=== PATIENT | female | born 1935 | race Caucasian/White ===

== ENCOUNTER 2023-09-28 18:38 | Inpatient (IN) | payer OTHER, SELFPAY ==
[2023-09-28] VITALS (8 sets, daily range): BP systolic 103–137; BP diastolic 63–77; BMI 31.5; BMI 30.8
[2023-09-28 16:40] LABS: % Basophils 0.9 % (0-2); % Immature Granulocytes 0.6 % (0-0.5); % Lymphocytes 9.9 % (20.5-51.1); % Monocytes 2.9 % (1.7-9.3); % Neutrophils 85.7 % (42.2-75.2); Absolute Basophils 0.1 10^3/uL (0-0.2); Absolute Lymphocytes 0.7 10^3/uL (1.2-3.4); Absolute Monocytes 0.2 10^3/uL (0.1-0.6); Absolute Neutrophils 5.7 10^3/uL (1.4-6.5); Hematocrit 28.8 % (37.0-47.0); Hemoglobin 10.2 g/dL (12.0-16.0); Mean Corp Hgb Conc. 35.4 g/dL (33.0-37.0); Mean Corpuscular Hgb 29.6 pg (27.0-31.0); Mean Corpuscular Volume 83.5 fL (81.0-99.0); Mean Platelet Volume 10.6 fL (7.4-10.4); Nucleated Red Blood Cells % 0 %; Platelet Count 133 10^3/uL (130-400); Red Blood Cell Count 3.45 10^6/uL (4.20-5.40); Red Cell Dist. Width 14.6 % (11.5-14.5); White Blood Cell Count 6.7 10^3/uL (4.8-10.8)
[2023-09-28 16:57] LABS: ALT (SGPT) 44 U/L (0-35); AST (SGOT) 34 U/L (14-36); Albumin 1.3 g/dl (3.5-5.0); Alkaline Phosphatase 21 U/L (38-126); Blood Urea Nitrogen 15 mg/dl (7-17); Calcium 4.4 mg/dl (8.4-10.2); Carbon Dioxide 8 mmol/L (22-30); Chloride 124 mmol/L (98-107); Estimated Creatinine Clearance 52 ml/min; Glucose 95 mg/dl (70-99); Potassium 2.4 mmol/L (3.5-5.1); Sodium 136 mmol/L (135-145); Total Bilirubin 0.4 mg/dl (0.2-1.3); eGFR > 60.00
--- NOTE | 2023-09-28 17:08 | ED.GENMED ---
History of Present Illness
General
Chief Complaint: Bowel Problem
Source: patient and family
Exam Limitations: none
Time Seen by Provider: 09/28/23 16:14
History of Present Illness
History of Present Illness:
88-year-old female who presents with persistent diarrhea. Patient is been on immunotherapy and symptoms have persisted. He the immunotherapy is for melanoma and they plan on stopping immunotherapy because of how much diarrhea she has been having.
Patient was recently admitted at [facility]. Patient has had continuous nonstop diarrhea. Denies abdominal pain. No fever. No vomiting. Family also mentions that her voice seems hoarse. Patient reports difficulty swallowing solid foods.
Past History
Past History
ED Past Medical History: HTN, Hypercholesterolemia and Other (Metastatic melanoma, hypertension, hyperlipidemia)
Phy Exam
Physical Exam
Physical Exam:
CONSTITUTIONAL Patient alert and oriented to person, place and time. Well-appearing. Vital signs reviewed.
HEAD atraumatic, normocephalic.
EYES enucleated left eye, right eye otherwise unremarkable.
NECK normal range of motion, Trachea midline, no jugular venous distention.
RESPIRATORY CHEST No respiratory distress noted, Chest expansion equal, Bilateral breath sounds clear.
CARDIOVASCULAR regular rate and rhythm, Heart sounds normal.
ABDOMEN abdomen nontender, Bowel sounds normal. No distention.
UPPER EXTREMITY range of motion normal, Motor strength normal, no cyanosis, no edema.
LOWER EXTREMITY range of motion normal, Motor strength normal, no cyanosis, bilateral edema.
NEURO Speech normal, No focal motor deficits, Carson coma scale 15, Memory normal, Cranial Nerves intact to screening exam.
SKIN skin warm, dry, and normal in color.
PSYCHIATRIC patient oriented to person place and time, Normal affect.
Course
Orders/Labs/Results
Orders:
Orders
09/28/23 16:27
Electrocardiogram (*1) Urgent
Reason for Study: Atrial Fibrillation
09/28/23 16:28
EKG- Treatment ONCE
09/28/23 16:30
Complete Blood Count/With Diff Urgent
Comprehensive Metabolic Panel Urgent
09/28/23 16:31
CDIFF [C difficile Antigen & Toxins] Urgent
SOFIA Source: Feces/Stool
Specimen Description:
Date Specimen was Collected: 09/28/23
Time Specimen was Collected: 16:31
09/28/23 16:33
COVID-19 Antigen Urgent
Source: Nasal Swab
09/28/23 16:58
Neck Soft Tissue [CR Soft Tissue Neck ] Urgent
Comment:
Reason For Exam: voice change, dysphagia
09/28/23 17:01
Lactic Acid Urgent
09/28/23 17:10
Potassium Chloride [KCl] 40 meq 0.9% Sodium Chloride 250 ml [Nss] 250 ml IV NOW
09/28/23 17:15
Calcium Gluconate 1,000 mg IV NOW STA
Lactated Ringers [Lr] 500 ml IV 100 mls/hr
Abnormal Lab Results
09/28/23
16:30
RBC 3.45 L 10^6/uL
(4.20-5.40)
Hgb 10.2 L g/dL
(12.0-16.0)
Hct 28.8 L %
(37.0-47.0)
RDW 14.6 H %
(11.5-14.5)
MPV 10.6 H fL
(7.4-10.4)
Absolute Lymphs (auto) 0.7 L 10^3/uL
(1.2-3.4)
Immature Gran % 0.6 H %
(0-0.5)
Neutrophils % 85.7 H %
(42.2-75.2)
Lymphocytes % 9.9 L %
(20.5-51.1)
Potassium 2.4 L* mmol/L
(3.5-5.1)
Chloride 124 H mmol/L
(98-107)
Carbon Dioxide 8 L* mmol/L
(22-30)
Calcium 4.4 L* mg/dl
(8.4-10.2)
ALT 44 H U/L
(0-35)
Alkaline Phosphatase 21 L U/L
(38-126)
Total Protein 3.0 L g/dl
(6.3-8.2)
Albumin 1.3 L g/dl
(3.5-5.0)
09/28/23 16:30
09/28/23 16:30
Vital Signs
Initial and Last Documented VS:
Initial Vital Signs
Temp Pulse Resp BP Pulse Ox
98.1 F 98 24 109/77 99
09/28/23 16:25 09/28/23 16:25 09/28/23 16:25 09/28/23 16:25 09/28/23 16:25
Last Documented Vital Signs
Temp Pulse Resp BP Pulse Ox
98.1 F 98 24 109/77 99
09/28/23 16:25 09/28/23 16:25 09/28/23 16:25 09/28/23 16:25 09/28/23 16:25
MDM/Problems Addressed
MDM/Problems Addressed:
Diarrhea, dehydration, hyperchloremic metabolic acidosis, hypokalemia, hypocalcemia
*Pulse Oximetry
Patient hypoxic: no
*EKG
Interpreted by ED Provider?: Yes
Interpretation: abnormal
Rate: normal
Rhythm: sinus and PVC's
Ischemia: non-specific ST changes
*Spl[employer] Interpretation
Rate: normal
Interpretation: normal
Rhythm: sinus
*Critical Care Note
Total Time (30-74mins, 75-104mins- exclusive of procedures): 40 minutes
Data Reviewed
Source: patient and family
Prescriptions/Medications Considered But Not Given:
Consider normal saline but given the hyperchloremia, treat with LR
Patient Management
Discussion with other providers: Hospitalist
Escalation/DeEscalation of care consider admission/obs:
88-year-old female with persistent diarrhea. Found to have hyperchloremic metabolic acidosis with hypokalemia and hypocalcemia. Treat with lactated Ringer's. Replace potassium and calcium. Admit. Caution with IV fluids given hypoalbuminemia,
May 3rd space
ED Attending Note
-
Portions of this chart may have been created with voice recognition software.� Occasional wrong word or��sound alike� substitutions may have occurred due to the inherent limitations of voice recognition software.
Discharge Plan
Departure
Patient Disposition: Admit
Date of Disposition: 09/28/23
Time of Disposition: 17:13
Admit to: Telemetry
Presentation/result/management discussed w/ accepting MD/DO: Hospitalist
Discharge Problem:
Hyperchloremic metabolic acidosis, Acute hypokalemia, Hypocalcemia, Hypoalbuminemia, Diarrhea, Dysphagia
Prescriptions:
No Action
atorvastatin [Lipitor] 40 mg Tablet
40 mg PO HS
prednisone 10 mg Tablet
10 mg PO DIRECTED
Rx Instructions:
starting 09/27/23 60mg daily for 7 days then on 10/04/23 50mg daily for 7 days then on 10/11/23 20mg daily for 7 days
Theragen Tablet
1 tab PO DAILY
amlodipine [Norvasc] 2.5 mg Tablet
2.5 mg PO DAILY
omeprazole 20 mg Tablet,Delayed Release (Dr/Ec)
20 mg PO DAILY
Benefiber s/f (wheat dextrin) 3 gram/6 gram Powder In Packet
1 ea PO DAILY
Rx Instructions:
give 1 tbsp
potassium chloride 20 mEq Tablet Extended Release
20 meq PO DAILY
acetaminophen [Tylenol] 325 mg Tablet
650 mg PO BID
acetaminophen [Tylenol] 325 mg Tablet
650 mg PO Q4HPRN PRN (Reason: mild pain)
loperamide 2 mg Capsule
2 mg PO Q4HPRN PRN (Reason: diarrhea)
loperamide 2 mg Tablet
2 mg PO Q6H
sulfamethoxazole-trimethoprim [Bactrim DS] 800-160 mg Tablet
1 tab PO MOWEFR
Rx Instructions:
for 21 starting 09/19/23
calcium carbonate [Tums] 200 mg calcium (500 mg) Tablet,Chewable
200 mg PO TIDPRN PRN (Reason: gerd)
insulin lispro [Humalog KwikPen Insulin] 100 unit/mL Insulin Pen
14 sliding scale dose SC AC
Rx Instructions:
150-200=2units, 201-250=4units
cholestyramine (with sugar) 4 gram Powder In Packet
4 g PO QID
Referrals:
Ana Laura Jefferson MD [Family Provider] -
Interventions
Interventions:
*Risk Screen - Suicide Last Done: 09/28/23 16:12
*General Assessment Last Done: 09/28/23 16:12
*ED COVID-19 Vaccine History Last Done: 09/28/23 16:26
Discharge Date and Time
Print Language: GREENLANDIC
[2023-09-28 17:30] LABS: COVID-19 Antigen Negative (Negative)
[2023-09-28] MEDS: CALCIUM GLUCONATE 1000 MG IV (17:32)
[2023-09-28] MEDS: LR 500 IV (17:33)
[2023-09-28] MEDS: KCL 270 MEQ IV ×2 (17:39→22:07)
--- NOTE | 2023-09-28 18:10 | HPS.HSE ---
Addendum entered and electronically signed by Jose Ackerman MD 09/28/23 18:53:
Venous blood gases 7.18, clinically she still looks good and stable always give her an amp of bicarb also will continue bicarb drip and check venous blood gas around 11 PM with a BMP.
This patient have difficulty taking tablet show again the change of potassium and calcium to liquid and hold prednisone given 40 mg IV Solu-Medrol daily
Get a swallowing eval
Once more stable we may end pending swallowing eval may need a CT neck as well as ENT consult accordingly.
Will closely monitor and have low threshold to transfer to ICU if her condition change.
Addendum entered and electronically signed by Jose Ackerman MD 09/28/23 18:27:
Impression is improved QTc
Likely secondary to multiple joint abnormality and acidosis
Respiratory
Cardiomegaly
Repeat EKG in the or sooner if needed
Original Note:
Family Physician
-
Family Physician: Ana Laura Jefferson MD
Chief Complaint
-
Persistent diarrhea
History of Present Illness
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
Developed Persistent nonbloody diarrhea, patient was in [facility] for more than a week eventually discharged to rehab, because of the diarrhea and generalized weakness family brought her to the hospital, she is awake, alert and oriented x 3
able to provide most information son and daughter at the bedside provide more information. Patient admitted the diarrhea is almost every 30 minutes moderate amount, nonbloody grayish-brownish in color, no any associated abdominal pain or nausea or
vomiting or fever or chill, no urinary symptoms, admit she continue able to eat food regularly. Also since been out of the [facility] she has been having some change of the voice and her skin is without any shortness of breath or cough or
congestion.
Denies chest pain or palpitation.
Workup in the ER basically showed hyper chloride make metabolic acidosis, hypokalemia, carbon dioxide and BMP is 8, also calcium 4.4, given amp of calcium gluconate, Ringer lactate is given, she is awake, alert and oriented x 3 and not in distress
provide good amount of the information.
Her condition discussed with the ER physician also reached out to nephrology.
In [place] she was started on escalating dose of prednisone at some point was on 60 but now titrating down currently on 20 mg until August 30 will be 10 mg, also she is on Bactrim for 3-week since October 09, getting cholestyramine and Imodium regularly.
Medical History
Past Medical History
Past Medical History: Reports Other
Additional Past Medical History:
Past medical history reviewed:
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
Diabetes
Hypertension
Social history: Currently not residential home, no smoking alcohol use.
Family history: Reviewed and noncontributory
Past Surgical History: Reports Other
Social History
Alcohol: Other
Family History
Family History: Other
Allergies / Home Medications
Allergies reflects when Allergies were last updated in [facility].
Home Medications with original date entered in [employer] [facility]
Allergy/Medication List:
Allergies
Allergy/AdvReac Type Severity Reaction Status Date / Time
No Known Allergies Allergy Verified 09/28/23 15:58
Home Medications
acetaminophen 325 mg tablet (Tylenol) 650 mg PO BID 09/28/23
acetaminophen 325 mg tablet (Tylenol) 650 mg PO Q4HPRN PRN mild pain 09/28/23
amlodipine 2.5 mg tablet (Norvasc) 2.5 mg PO DAILY 09/28/23
atorvastatin 40 mg tablet (Lipitor) 40 mg PO HS 09/28/23
calcium carbonate (Tums) 200 mg PO TIDPRN PRN gerd 09/28/23
cholestyramine (with sugar) 4 gram powder for susp in a packet 4 g PO QID 09/28/23
insulin lispro 100 unit/mL subcutaneous pen (Humalog KwikPen (U-100) Insulin) 14 sliding scale dose SC AC 09/28/23
loperamide 2 mg capsule 2 mg PO Q4HPRN PRN diarrhea 09/28/23
loperamide 2 mg tablet 2 mg PO Q6H 09/28/23
omeprazole 20 mg tablet,delayed release 20 mg PO DAILY 09/28/23
potassium chloride 20 mEq tablet,extended release 20 meq PO DAILY 09/28/23
prednisone 10 mg tablet 10 mg PO DIRECTED 09/28/23
sulfamethoxazole 800 mg-trimethoprim 160 mg tablet (Bactrim DS) 1 tab PO MOWEFR diarrhea 09/28/23
therapeutic multivitamin 1 tab PO DAILY 09/28/23
wheat dextrin (with aspartame) 3 gram/6 gram oral powder packet 1 ea PO DAILY 09/28/23
Review of Systems
-
A 12 point ROS was completed and negative except as noted: Yes
Physical Exam
Vital Signs
Vital Signs
Temp Pulse Resp BP Pulse Ox
98.1 F 98 24 109/77 99
09/28/23 16:25 09/28/23 16:25 09/28/23 16:25 09/28/23 16:25 09/28/23 16:25
Physical exam:
General: Awake, alert and oriented x3, not in distress and holds appropriate conversation.
HEENT: no active discharge, ecchymosis or bruising, dry lips, tongue and mucous membrane.
Eyes: Absent left eye surgically no discharge or red conjunctiva, no nystagmus, pupils are reactive and equal
Neck:Supple, no JVD no bruit no goiter.
Respiratory: Normal AP contour and diameter, normal chest wall movement, normal respiratory effort, no respiratory distress,
Lungs: Good air entry bilaterally, no wheezing or rhonchi, no rales or crackles
Heart: S1, S2 regular, normal rate, no added sound. Moderately gross bilateral lower extremity pitting edema
Gastrointestinal: Positive bowel sounds, soft, nontender, no guarding or rigidity or organomegaly
Musculoskeletal: , no chest wall abnormality or tenderness. All joints and extremities have good range of motion, no muscle tenderness or any joint swelling or tenderness.
Extremities: No pitting edema, good peripheral pulses, good range of motion
Skin: Warm and dry, no ulceration, normal color.
Neurological: Awake, alert and oriented x3, no facial, speech clear and comprehensive, good muscle tone, good muscle tone, moves extremities freely, follows command full
Psychiatric: Normal mood, normal thought and judgment, normal affect,
Physical Exam
General: Other
Laboratory Results
-
09/28/23 16:30
09/28/23 16:30
Laboratory Results
Total Bilirubin 0.4 mg/dl (0.2-1.3) 09/28/23 16:30
AST 34 U/L (14-36) 09/28/23 16:30
ALT 44 U/L (0-35) H 09/28/23 16:30
Alkaline Phosphatase 21 U/L (38-126) L 09/28/23 16:30
EKG showed some PVCs, QT 406, QTc 521, also schedule age, progression of the or in anterior lateral leg is no previous EKG TO compare to
Data Reviewed
-
Medical Tests (Nuc Med, Echo, EKG etc): Image Personally Visualized and interpreted, Discussed with Physician, Discussed with Patient and Discussed with Family
Lab Data: Labs Reviewed by me, Discussed with Patient and Discussed with Family
Old Records: Reviewed
Impression/Plan
-
IMPRESSION:
88-year-old female with history of melanoma currently getting immunological agent, developed persistent diarrhea with The second agent, she was in [facility], presented to the hospital for persistent diarrhea, workup showed hyperchloremic
metabolic acidosis, dehydration and hypokalemia.
Persistent diarrhea likely secondary to immunological agent while other causes need to be considered.
Dehydration
Hyperchloremic metabolic acidosis
Hypokalemia
Hypocalcemia
Severe protein caloric malnutrition as albumin is 1 3 mild elevation of ALT
Anemia
Hypertension
Diabetes mellitus
Melanoma
PLAN:
Admitted to IMU with close monitoring and cardiac monitoring
Start bicarb drip
VBG pending if pH is still low then may consider an amp of bicarb
Nephrology consulted on discharge and follow GI their input and recommendation appreciated
GI consult
Replace potassium orally and IV and recheck BMP at some point later today
Check magnesium.
Monitor vital sign closely
Hold amlodipine
An amp of calcium gluconate given and start oral calcium as well.
Will start full liquid diet and hold her doses of insulin as according to the family the stop her oral hypoglycemic agents and currently on short acting insulin with meal
Regarding hypoalbuminemia. Nutritional supplement and get dietitian consult
She is at this stage on 20 mg prednisone as mentioned above until September 29 after the Wellbutrin has been down titrated,
On Bactrim for 21-day will continue on with recommendation on GI.
Get stool for C. difficile, culture, white cell count and ova and parasite.
discussed with PATRIA yan
All discussed with the patient and the family in detail and expressed understanding
CODE STATUS discussed with the patient and the family she is DNR
DVT prophylaxis Lovenox
Prognosis poor
[2023-09-28 18:39] LABS: Venous Blood Gas B.E. -14.2 mmol/L (-4 to +4); Venous Blood Gas HCO3 13.1 mmol/L (22-27); Venous Blood Gas O2 Sat % 97.3 %; Venous Blood Gas pCO2 35 mmHg (35-48); Venous Blood Gas pO2 267 mmHg (30-50)
[2023-09-28 18:42] LABS: Lactic Acid 1.1 mmol/L (0.7-2.0)
[2023-09-28 18:44] LABS: Venous Blood Gas pH 7.18 (7.32-7.43)
[2023-09-28] MEDS: SODIUM BICARBONATE 50 MEQ IV (19:05)
[2023-09-28] MEDS: KCL ELIXIR 40 MEQ PO (19:06)
--- NOTE | 2023-09-28 20:09 | W.CON.NEPH ---
Consultation
-
Date/Time Consultation Requested: September 28, 2023 8 PM
Date/Time Consultation Performed: September 28, 2023 8 PM
Requesting Provider: Dr. Ackerman
Performing Provider: Dr. Anton
Reason for Consultation: Metabolic acidosis, hypokalemia, hypocalcemia
Medical History
-
Chief Complaint: Diarrhea
History of Present Illness:
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 She was then started immunotherapy with Opdivo and
Yervoy. However it is believed that her immunotherapy resulted in severe diarrhea. This is occurred since the end of last month. She was actually hospitalized at [place] for diarrhea not long ago. Upon discharge they did note that she had been
developing lower extremity edema which she had also not had previously. Her diarrhea has persisted voluminous. She has no nausea or vomiting. Her oral intake has been fine without decrease. He does drink upwards of 50 or 60 ounces of fluid per
day. She does believe that her urine output has decreased. She denies any also has been mostly bedbound. On admission her potassium was 2.4, calcium 4.4, bicarbonate 8.
Past Medical History
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
Left eye enucleation
Diabetes mellitus type 2
Hypertension
Hyperlipidemia
Social History
Tobacco: Non-Smoker
Alcohol: None
Family History
No CKD
Allergies / Home Medications
Allergy/AdvReac Type Severity Reaction Status Date / Time
No Known Allergies Allergy Verified 09/28/23 15:58
�Medication �Instructions �Recorded �Confirmed �Type
acetaminophen 325 mg tablet 650 mg PO BID 09/28/23 09/28/23 History
(Tylenol)
acetaminophen 325 mg tablet 650 mg PO Q4HPRN PRN mild pain 09/28/23 09/28/23 History
(Tylenol)
amlodipine 2.5 mg tablet (Norvasc) 2.5 mg PO DAILY 09/28/23 09/28/23 History
atorvastatin 40 mg tablet (Lipitor) 40 mg PO HS 09/28/23 09/28/23 History
calcium carbonate (Tums) 200 mg PO TIDPRN PRN gerd 09/28/23 09/28/23 History
cholestyramine (with sugar) 4 gram 4 g PO QID 09/28/23 09/28/23 History
powder for susp in a packet
insulin lispro 100 unit/mL 14 sliding scale dose SC AC 09/28/23 09/28/23 History
subcutaneous pen (Humalog KwikPen
(U-100) Insulin)
loperamide 2 mg capsule 2 mg PO Q4HPRN PRN diarrhea 09/28/23 09/28/23 History
loperamide 2 mg tablet 2 mg PO Q6H 09/28/23 09/28/23 History
omeprazole 20 mg tablet,delayed 20 mg PO DAILY 09/28/23 09/28/23 History
release
potassium chloride 20 mEq 20 meq PO DAILY 09/28/23 09/28/23 History
tablet,extended release
prednisone 10 mg tablet 10 mg PO DIRECTED 09/28/23 09/28/23 History
sulfamethoxazole 800 1 tab PO MOWEFR diarrhea 09/28/23 09/28/23 History
mg-trimethoprim 160 mg tablet
(Bactrim DS)
therapeutic multivitamin 1 tab PO DAILY 09/28/23 09/28/23 History
wheat dextrin (with aspartame) 3 1 ea PO DAILY 09/28/23 09/28/23 History
gram/6 gram oral powder packet
Review of Systems
-
Diarrhea
All other systems: Negative unless noted
Physical Exam
Vital Signs
Vital Signs
Temp Pulse Resp BP Pulse Ox
98.1 F 93 28 131/63 100
09/28/23 16:25 09/28/23 19:16 09/28/23 19:16 09/28/23 19:16 09/28/23 18:30
Lab Results
WBC 6.7 10^3/uL (4.8-10.8) 09/28/23 16:30
RBC 3.45 10^6/uL (4.20-5.40) L 09/28/23 16:30
Hgb 10.2 g/dL (12.0-16.0) L 09/28/23 16:30
Hct 28.8 % (37.0-47.0) L 09/28/23 16:30
Plt Count 133 10^3/uL (130-400) 09/28/23 16:30
Sodium 136 mmol/L (135-145) 09/28/23 16:30
Potassium 2.4 mmol/L (3.5-5.1) L* 09/28/23 16:30
Chloride 124 mmol/L (98-107) H 09/28/23 16:30
Carbon Dioxide 8 mmol/L (22-30) L* 09/28/23 16:30
BUN 15 mg/dl (7-17) 09/28/23 16:30
Creatinine 0.7 mg/dL (0.6-1.0) 09/28/23 16:30
eGFR > 60.00 09/28/23 16:30
Glucose 95 mg/dl (70-99) 09/28/23 16:30
Calcium 4.4 mg/dl (8.4-10.2) L* 09/28/23 16:30
Albumin 1.3 g/dl (3.5-5.0) L 09/28/23 16:30
Physical Exam
Patient is awake alert oriented and in no distress. Mood and affect were pleasant, insight and judgment were good. Pupils are equal round and reactive to light, extraocular movements are intact, sclera were anicteric. Hearing was normal, ears and
nose are intact. Oropharynx was dry. Neck was supple with trachea midline and no thyromegaly. Heart was regular rate and rhythm without rubs. Lower extremities with 3+ edema. Lungs were clear to auscultation bilaterally and with normal excursion.
Abdomen was soft, nontender, with normal active bowel sounds, and no hepatosplenomegaly. Skin was without rash and with normal turgor.
Data Reviewed
-
Radiology: Image Personally Visualized and interpreted (X-ray on September 28, 2023 by my read shows no acute disease)
Medical Tests (Nuc Med, Echo etc): Image Personally Visualized and interpreted (EKG on 09/28/2023 by my read shows atrial fibrillation)
Labs: Labs Reviewed by me (Sodium 136, potassium 2.4, chloride 124, bicarbonate 8, BUN 15, creatinine 0.7, calcium 4.4, lactic acid 1.1, glucose 95, albumin 1.3, total protein 3.0)
Assessment/Plan
-
Assessment
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
Persistent diarrhea
Hypokalemia
hypocalcemia
Metabolic acidosis
Diabetes mellitus type 2
Atrial fibrillation
Hypoalbuminemia
Edema
Plan
She will need aggressive replacement of potassium and calcium
Protein supplements will be added
Bicarbonate IV fluids will be given with oral bicarbonate as well
There may also be a protein-losing enteropathy but we will evaluate for other causes of hypoalbuminemia
Serial blood work
Discussed with patient and family
[2023-09-28 21:49] LABS: Glucose - Point of Care 142 mg/dl (70-99)
[2023-09-28] MEDS: CALCIUM CARBONATE ORAL SUSP 500 MG TUBE (22:03)
[2023-09-28] MEDS: CALCIUM GLUCONATE 290 MG IV (22:04)
[2023-09-28] MEDS: SODIUM BICARBONATE 1150 MEQ IV (22:05)
[2023-09-28] MEDS: LOVENOX 40 MG SC (22:05)
[2023-09-28 22:07] LABS: Magnesium 0.8 mg/dl (1.6-2.3)
[2023-09-28] MEDS: SODIUM BICARBONATE 1300 MG PO (22:07)
[2023-09-28] MEDS: MAGNESIUM SULFATE 100 IV (23:23)
[2023-09-28] MEDS: QUESTRAN 4 GRAM PO (23:44)
[2023-09-29] VITALS (11 sets, daily range): BP systolic 102–146; BP diastolic 45–83; BMI 30.8; BMI 30.5
[2023-09-29] LABS: Venous Blood Gas B.E. -10.5 mmol/L (-4 to +4); Venous Blood Gas HCO3 16.3 mmol/L (22-27); Venous Blood Gas O2 Sat % 95.3 %; Venous Blood Gas pCO2 39 mmHg (35-48); Venous Blood Gas pH 7.23 (7.32-7.43); Venous Blood Gas pO2 84 mmHg (30-50)
[2023-09-29 00:02] LABS: Venous Blood Gas O2 Therapy ROOM AIR
[2023-09-29 00:17] LABS: Blood Urea Nitrogen 19 mg/dl (7-17); Calcium 9.3 mg/dl (8.4-10.2); Carbon Dioxide 14 mmol/L (22-30); Chloride 115 mmol/L (98-107); Estimated Creatinine Clearance 36 ml/min; Glucose 112 mg/dl (70-99); Phosphorus 2.5 mg/dl (2.5-4.5); Potassium 5.5 mmol/L (3.5-5.1); Sodium 136 mmol/L (135-145); eGFR 54.19
[2023-09-29] MEDS: KCL ELIXIR PO (01:13)
--- NOTE | 2023-09-29 02:03 | PTCARENOTE ---
Pt from ED. Pt AAOx3 with hoarse voice but able to make needs known. Pt has no complaints at this time. Assessment, care and vitals as charted.
[2023-09-29] MEDS: QUESTRAN 4 GRAM PO ×3 (05:42→22:46)
[2023-09-29 06:26] LABS: Urine Albumin Negative (Neg - Trace); Urine Bilirubin Negative (Negative); Urine Character Clear (Clear); Urine Color Yellow; Urine Glucose Negative (Negative); Urine Ketone Trace (Negative); Urine Leukocyte Negative (Negative); Urine Nitrite Negative (Negative); Urine Occult Blood 4+ (Negative); Urine Urobilinogen Negative (Neg - 1+)
[2023-09-29 06:28] LABS: % Basophils 0.6 % (0-2); % Eosinophils 0.5 % (0-6); % Immature Granulocytes 0.5 % (0-0.5); % Lymphocytes 18.3 % (20.5-51.1); % Monocytes 7.8 % (1.7-9.3); % Neutrophils 72.3 % (42.2-75.2); Absolute Lymphocytes 1.1 10^3/uL (1.2-3.4); Absolute Monocytes 0.5 10^3/uL (0.1-0.6); Absolute Neutrophils 4.5 10^3/uL (1.4-6.5); Hemoglobin 10.6 g/dL (12.0-16.0); Mean Corp Hgb Conc. 35.3 g/dL (33.0-37.0); Mean Corpuscular Hgb 29.7 pg (27.0-31.0); Mean Platelet Volume 10.8 fL (7.4-10.4); Nucleated Red Blood Cells % 0 %; Platelet Count 137 10^3/uL (130-400); Red Blood Cell Count 3.57 10^6/uL (4.20-5.40); Red Cell Dist. Width 14.6 % (11.5-14.5); White Blood Cell Count 6.2 10^3/uL (4.8-10.8)
[2023-09-29 06:44] LABS: Urine Bacteria Few (Negative); Urine Red Blood Cell 30-40 /HPF (0-2); Urine White Cell 0-2 /HPF (0-5)
[2023-09-29 06:53] LABS: Blood Urea Nitrogen 18 mg/dl (7-17); Calcium 8.6 mg/dl (8.4-10.2); Carbon Dioxide 16 mmol/L (22-30); Chloride 111 mmol/L (98-107); Estimated Creatinine Clearance 36 ml/min; Glucose 113 mg/dl (70-99); Magnesium 2.1 mg/dl (1.6-2.3); Potassium 5.2 mmol/L (3.5-5.1); Sodium 134 mmol/L (135-145); eGFR 54.19
[2023-09-29 07:19] LABS: Urine Sodium 127 mmol/L (30-90)
[2023-09-29 07:23] LABS: TSH 0.84 uIU/ml (0.47-4.68)
[2023-09-29 08:08] LABS: Glucose - Point of Care 159 mg/dl (70-99)
[2023-09-29 08:28] LABS: Glycohemoglobin (HgbA1c) 6.5 % (4.0-5.6)
[2023-09-29] MEDS: SODIUM BICARBONATE 1300 MG PO (08:29)
[2023-09-29] MEDS: SOLU-MEDROL PF 40 MG IV (08:32)
[2023-09-29] MEDS: NOVOLOG FLEXPEN-MODERATE RESISTANCE 1 UNITS SC (08:33)
[2023-09-29] MEDS: CALCIUM CARBONATE ORAL SUSP 500 MG TUBE ×2 (08:44→20:18)
[2023-09-29] MEDS: SODIUM BICARBONATE 1150 MEQ IV ×2 (09:36→18:10)
--- NOTE | 2023-09-29 09:37 | W.PN.HOSP.TC ---
Today's Communication/Plan
-
see bold
Assessment / Plan
Assessment / Plan
HPI: 88-year-old female with history of melanoma currently getting immunological agent, developed persistent diarrhea with The second agent, she was in [facility], presented to the hospital for persistent diarrhea, workup showed
hyperchloremic metabolic acidosis, dehydration and hypokalemia.
#Anion gap metabolic acidosis
#Hypokalemia
Appreciate nephrology input
Due to diarrhea, continue sodium bicarb IV fluids
Hypokalemia resolved
#Persistent diarrhea
Appreciate GI input, check abdominal x-ray to rule out overflow diarrhea
Oral steroids changed to IV steroids on admission
Records requested from [place]
#Dysphagia
Cleared for regular diet with thin liquids
#Gastroesophageal reflux disease
Continue PPI
#Hoarseness
Appreciate ENT input, recommend outpatient laryngoscopy
ENT suspects reflux
#Hypoalbuminemia
Protein supplements, nutrition consulted
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
Outpatient follow-up
# Paroxysmal atrial fibrillation
Currently in normal sinus rhythm
#Type 2 diabetes
A1C 6.5
Carb controlled diet, SSI
DVT prophylaxis�subcu Lovenox
DNR
Total time spent to see the patient on the floor, examine the patient, review data and lab results, discuss treatment plan with patient, nursing staff around 51 minutes.
Physical Exam
General: No acute distress
HEENT: Normocephalic, Atraumatic, EOMI, MMM
Hoarse voice
Respiratory: Clear to Auscultation bilaterally
Cardiac: Normal S1/S2, Regular Rate and Rhythm
GI: Soft, Nontender, Nondistended, Normal Bowel Sounds
Extremities: No Clubbing, Cyanosis
Bilateral lower extremity edema noted
Neuro: Nonfocal/Grossly Intact
Psych: Calm, Cooperative
Derm: No Visible lesions
Anticipated Discharge: 24 - 48 hours
Subjective/Interval History
-
Date of Service: September 29, 2023
Diarrhea resolved. She continues to cough, and has a hoarse voice. She complains of dysphagia with certain solids. No fever, no vomiting.
Objective Data
-
Labs:
Laboratory Results
09/28/23 09/29/23
23:42 05:59
WBC 6.2
Hgb 10.6 L
Hct 30.0 L
Plt Count 137
Sodium 136 134 L
Potassium 5.5 H D 5.2 H
Chloride 115 H 111 H
Carbon Dioxide 14 L* 16 L
BUN 19 H 18 H
Creatinine 1.0 1.0
Glucose 112 H 113 H
Calcium 9.3 D 8.6
Vital Signs:
Vital Signs
Temp Pulse Resp BP Pulse Ox
97.9 F 88 23 131/73 97
09/29/23 07:40 09/29/23 08:00 09/29/23 08:00 09/29/23 08:00 09/29/23 08:19
I&O
09/28/23 09/29/23 09/30/23
06:59 06:59 06:59
Intake Total 2790 / 2790
Output Total 2300 / 2300 400 / 400
Balance 490 / 490 -400 / -400
--- NOTE | 2023-09-29 09:55 | PTOTSP ---
Speech Language Pathology
Pt seen for clinical bedside swallow evaluation. Dysphonia noted, which pt reported for 6 days, stating she just woke up with it one day. She denied any precipitating factors. Dysphonia characterized by strained, hoarse vocal quality with periods
of aphonia.
Pt reported that she has difficulty swallowing dry hard meats at times with noted globus sensation, so she avoids these items. Similar difficulty noted with large pills, so she cuts larger pills in half. This date, P.O. trials of puree, regular
solids, and thin liquids provided. Adequate mastication, bolus formation, and A-P transit noted with no oral residue. No overt signs of aspiration.
Recommend:
(1) Upgrade to regular solids/thin liquids when MD to advance solids
(2) General aspiration precautions
(3) Meds as tolerated
(4) Consider ENT consult for hoarse vocal quality of unknown etiology
(5) SPRING ASSEMBLER to continue to follow
--- NOTE | 2023-09-29 11:21 | CON.GI ---
Addendum entered and electronically signed by Hyacinth Childers MD 09/29/23 16:31:
I saw and examined the patient.
The DRAWBENCH OPERATOR or PA's note was reviewed and I agree with the note.
Comment:
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 She did start having diarrhea after her chemotherapy and was found laying in stool initially. She was admitted to [facility] and
then represents here with profound metabolic acidosis and electrolyte disturbance. She states that her diarrhea is nonbloody and is continued since the time she had been found on the floor. It is unclear what was done at [place] but she was on
steroids, Imodium and Questran at some point.
abd: soft, nontender
impression:
diarrhea
plan:
get records
xray to r/o overflow
stool cultures
quantify stool
currently on IV steroids
low residue diet
can use imodium and lower dose questran
if no improvement may need flex sig vs. colonoscopy
Original Note:
Consultation
-
Date/Time Consultation Requested: 09/28/23 1800
Date/Time Consultation Performed: 09/28/23 1130
Requesting Provider: Jose Ackerman MD
Performing Provider: DAMIAN Coleman, Hyacinth Childers MD
Reason for Consultation: diarrhea
Medical History
Chief Complaint / HPI
Chief Complaint: diarrhea
History of Present Illness:
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 She has been on therapy ? immunotherapy with [facility]. She did well with first infusion then with second infusion had diarrhea. She was admitted to
[facility] with improvement then had recurrent diarrhea and SNF and missed appt last week with oncology due to recurrent symptoms. She now presents with recurrent diarrhea with profound hypokalemia and metabolic acidosis and asked to see. Pt was on
Imodium, Questran QID, and Prednisone prior to admission.
Pt also admits to new dysphagia with solids. Symptoms started about 5-6 weeks ago. She has done well with chopped or pureed food. As far as diarrhea she was having stools every 20 minutes at time now no stools overnight. Pt otherwise denies
odynophagia, GERD , nausea, vomiting, abdominal pain, constipation, blood or black in stools. Denies hx EGD or colonoscopy in past. Pt noted with horseness s/p ENT eval with concern for GERD.
Past Medical History
Past Medical History: Arrhythmias (afib) and Cancer (melanoma with left eye with resection )
Social History
Tobacco: Non-Smoker
Alcohol: None
Drug: None
Living: Group Home (current rehab stay )
Family History
Family History: Other (no family hx colon Ca or polyps)
Allergies / Home Medications
Allergy/AdvReac Type Severity Reaction Status Date / Time
No Known Allergies Allergy Verified 09/28/23 15:58
�Medication �Instructions �Recorded
acetaminophen 325 mg tablet 650 mg PO BID Pain 09/28/23
(Tylenol)
acetaminophen 325 mg tablet 650 mg PO Q4HPRN PRN mild pain 09/28/23
(Tylenol)
amlodipine 2.5 mg tablet (Norvasc) 2.5 mg PO DAILY Blood Pressure 09/28/23
atorvastatin 40 mg tablet (Lipitor) 40 mg PO HS High Cholesterol 09/28/23
calcium carbonate (Tums) 200 mg PO TIDPRN PRN gerd 09/28/23
cholestyramine (with sugar) 4 gram 4 g PO QID Gastrointestinal Issue 09/28/23
powder for susp in a packet
insulin lispro 100 unit/mL 14 sliding scale dose SC AC 09/28/23
subcutaneous pen (Humalog KwikPen Diabetes
(U-100) Insulin)
loperamide 2 mg capsule 2 mg PO Q4HPRN PRN diarrhea 09/28/23
loperamide 2 mg tablet 2 mg PO Q6H Diabetes 09/28/23
omeprazole 20 mg tablet,delayed 20 mg PO DAILY Gastrointestinal 09/28/23
release Issue
potassium chloride 20 mEq 20 meq PO DAILY Electrolyte 09/28/23
tablet,extended release Repletion
prednisone 10 mg tablet 10 mg PO DIRECTED 09/28/23
Anti-Inflammatory
sulfamethoxazole 800 1 tab PO MOWEFR Infection 09/28/23
mg-trimethoprim 160 mg tablet
(Bactrim DS)
therapeutic multivitamin 1 tab PO DAILY Supplement 09/28/23
wheat dextrin (with aspartame) 3 1 ea PO DAILY Gastrointestinal 09/28/23
gram/6 gram oral powder packet Issue
Review of Systems
-
History Source: Patient
Constitutional: Reports Weight Gain (few lbs with fluid in legs )
EENT: Reports No Symptoms
Respiratory: Reports No Symptoms
Cardiac: Reports No Symptoms
Abdomen/GI: Reports Diarrhea and Other (dysphagia)
: Reports No Symptoms
Musculoskeletal: Reports No Symptoms
Skin: Reports No Symptoms
Neurological: Reports Weakness
Endocrine: Reports No Symptoms
Hematologic/Lymphatic: Reports No Symptoms
Vital Signs
Temp Pulse Resp BP Pulse Ox
97.9 F 88 23 131/73 97
09/29/23 07:40 09/29/23 08:00 09/29/23 08:00 09/29/23 08:00 09/29/23 08:19
Physical Exam
Exam
General: Well Developed, Well Nourished and No Apparent Distress
HEENT: Normocephalic and Anicteric
Respiratory: Clear
Cardiac: Regular Rhythm
GI: Soft, Non Tender and Non Distended
Musculoskeletal: No Clubbing and No Cyanosis
Skin: Warm and Dry
Neuro: Awake, Alert and AO x 3
Psych: Calm
Results
WBC 6.2 10^3/uL (4.8-10.8) 09/29/23 05:59
Hgb 10.6 g/dL (12.0-16.0) L 09/29/23 05:59
Hct 30.0 % (37.0-47.0) L 09/29/23 05:59
MCV 84.0 fL (81.0-99.0) 09/29/23 05:59
Plt Count 137 10^3/uL (130-400) 09/29/23 05:59
Absolute Neuts (auto) 4.5 10^3/uL (1.4-6.5) 09/29/23 05:59
Sodium 134 mmol/L (135-145) L 09/29/23 05:59
Potassium 5.2 mmol/L (3.5-5.1) H 09/29/23 05:59
Chloride 111 mmol/L (98-107) H 09/29/23 05:59
Carbon Dioxide 16 mmol/L (22-30) L 09/29/23 05:59
BUN 18 mg/dl (7-17) H 09/29/23 05:59
Creatinine 1.0 mg/dL (0.6-1.0) 09/29/23 05:59
Calcium 8.6 mg/dl (8.4-10.2) 09/29/23 05:59
Total Bilirubin 0.4 mg/dl (0.2-1.3) 09/28/23 16:30
AST 34 U/L (14-36) 09/28/23 16:30
ALT 44 U/L (0-35) H 09/28/23 16:30
Alkaline Phosphatase 21 U/L (38-126) L 09/28/23 16:30
Diagnostic Image Results:
09/28/23 -soft tissue neck -- no acute radiographic abnormalities.
Prior GI Procedures:
EGD: none
Colonoscopy: none
Assessment / Plan
-
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 She has been on therapy ? immunotherapy with [facility]. She did well with first infusion then with second infusion had diarrhea. She was admitted to
[facility] with improvement then had recurrent diarrhea and SNF and missed appt last week with oncology due to recurrent symptoms. She now presents with recurrent diarrhea with profound hypokalemia and metabolic acidosis and asked to see.
-diarrhea
-hx melanoma of eye with resection and recurrent CA on immunotherapy
-dysphagia
-hoarseness s/p ENT eval -- ? GERD related
-hypokalemia
-hypocalcemia
-metabolic acidosis
other medical problems:
-Diabetes
-HTN
afib
PLAN:
etiology of diarrhea related to infectious etiology vs constipation with overflow with high dose questran prior to admission, immunotherapy related vs other
monitor diarrhea during admission -- currently improved today with correction of electrolytes
appreciate renal for electrolyte imbalance
check stool studies to rule out infectious etiology
check abd X ray for stool burden
pt current on Questran QID will decrease to BID
cont Imodium PRN
IV steroids started on admission was on Prednisone prior to admission
trial low residue/low lactose, ADA diet
consider UGI with complaints of dysphagia with solids
add PPI daily with dysphagia and recent prednisone use
Imodium PRN
s/p ENT eval with c/o hoarseness, OP laryngoscopy
requested [facility] record of prior work up-- left message with [facility] for review with immunotherapy
-
-
Thank you for consultation and allowing me to participate in the patient's care. Please call the concrete building assembler GI physician during the after hours with any questions or concerns.
[2023-09-29 12:17] LABS: Glucose - Point of Care 231 mg/dl (70-99)
--- NOTE | 2023-09-29 12:23 | CON.MD ---
Consultation - Medical
-
Pt seen and consult dictated.
She has had about 8 days of hoarseness without pain or dysphagia.
She is admitted with chronic diarrhea.
Hoarseness likely due to acid reflux.
Laryngoscopy will need to be performed as an outpatient.
In the meantime will treat conservatively.
F/u with us after discharge.
[2023-09-29] MEDS: NOVOLOG FLEXPEN-MODERATE RESISTANCE 3 UNITS SC (12:30)
--- NOTE | 2023-09-29 13:04 | W.PN.NEPH.PH ---
Today's Communication / Plan
-
- increase sodiium bicarb gtt
Assessment/Plan
-
Assessment
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
Persistent diarrhea
Hypokalemia
hypocalcemia
Metabolic acidosis
Diabetes mellitus type 2
Atrial fibrillation
Hypoalbuminemia
Edema
Plan
K and calcium now normalized after repletion
Protein supplements will be added
increase sodium bicarb rate to 150cc/hr
not much benefit in oral bicarb supplementation, will stop today
There may also be a protein-losing enteropathy but we will evaluate for other causes of hypoalbuminemia
Serial blood work
Discussed with patient and family
-
-
Date of Service: September 29, 2023
CC / HPI / ROS
-
Chief Complaint:
acidosis, hypocalcemia, hypokalemia
History of Present Illness:
s/p aggressive repletion of K and Ca --> now normalized
acidosis persists, increased bicarb today
GI on board for diarrhea
Review of Systems:
feels better after electrolyte repletion
Labs
-
Labs:
WBC 6.2 10^3/uL (4.8-10.8) 09/29/23 05:59
RBC 3.57 10^6/uL (4.20-5.40) L 09/29/23 05:59
Hgb 10.6 g/dL (12.0-16.0) L 09/29/23 05:59
Hct 30.0 % (37.0-47.0) L 09/29/23 05:59
Plt Count 137 10^3/uL (130-400) 09/29/23 05:59
Sodium 134 mmol/L (135-145) L 09/29/23 05:59
Potassium 5.2 mmol/L (3.5-5.1) H 09/29/23 05:59
Chloride 111 mmol/L (98-107) H 09/29/23 05:59
Carbon Dioxide 16 mmol/L (22-30) L 09/29/23 05:59
BUN 18 mg/dl (7-17) H 09/29/23 05:59
Creatinine 1.0 mg/dL (0.6-1.0) 09/29/23 05:59
eGFR 54.19 09/29/23 05:59
Glucose 113 mg/dl (70-99) H 09/29/23 05:59
Calcium 8.6 mg/dl (8.4-10.2) 09/29/23 05:59
Phosphorus 2.5 mg/dl (2.5-4.5) 09/28/23 23:42
Albumin 1.3 g/dl (3.5-5.0) L 09/28/23 16:30
Physical Exam
-
Vital Signs:
Vital Signs
Temp Pulse Resp BP Pulse Ox
97.9 F 86 18 123/72 96
09/29/23 07:40 09/29/23 12:00 09/29/23 12:00 09/29/23 12:00 09/29/23 12:45
Cardiovascular:: Regular rate and rhythm
Respiratory:: Bilateral: Coarse
Lung Excursion:: Normal
Abdomen:: Nontender and Soft
Bowel Sounds:: Normal
Extremity Edema:: None: Bilateral:
Arnett Catheter: No
[2023-09-29] MEDS: PROTONIX IV 40 MG IV (14:57)
[2023-09-29] MEDS: NSS (PRESERVATIVE FREE) 10 ML IV (14:57)
--- NOTE | 2023-09-29 15:45 | PTCARENOTE ---
Patient having loose bowel movements after eating lunch, incontinent. Stool samples sent to lab. Patient has excellent appetite, denying nausea.
[2023-09-29 16:06] LABS: Glucose - Point of Care 252 mg/dl (70-99)
[2023-09-29] MEDS: LOVENOX 40 MG SC (17:06)
[2023-09-29] MEDS: NOVOLOG FLEXPEN-MODERATE RESISTANCE 5 UNITS SC (17:07)
[2023-09-29 21:30] LABS: Glucose - Point of Care 260 mg/dl (70-99)
[2023-09-30] VITALS (12 sets, daily range): BP systolic 118–134; BP diastolic 57–89; PULSE 98; O2SAT 97
--- NOTE | 2023-09-30 03:03 | PTCARENOTE ---
Pt receiving Milk and Molasses enema. Pt able to have multiple loose/formed stools. During nigh Pt having brief period of ST into the 120's, this does not apear, Pt asymptomatic. Assessment care and vitals as charted.
--- NOTE | 2023-09-30 03:15 | PTCARENOTE ---
Pt receiving Milk and Molasses enema. Pt able to have multiple loose/formed stools. During nigh Pt having brief period of ST into the 120's quickly back into the 80's, Pt asymptomatic. Assessment care and vitals as charted.
[2023-09-30 05:59] LABS: Hematocrit 26.6 % (37.0-47.0); Hemoglobin 9.5 g/dL (12.0-16.0); Mean Corp Hgb Conc. 35.7 g/dL (33.0-37.0); Mean Corpuscular Hgb 29.4 pg (27.0-31.0); Mean Corpuscular Volume 82.4 fL (81.0-99.0); Mean Platelet Volume 10.9 fL (7.4-10.4); Platelet Count 142 10^3/uL (130-400); Red Blood Cell Count 3.23 10^6/uL (4.20-5.40); Red Cell Dist. Width 14.6 % (11.5-14.5)
[2023-09-30 06:55] LABS: ALT (SGPT) 66 U/L (0-35); AST (SGOT) 40 U/L (14-36); Albumin 2.3 g/dl (3.5-5.0); Alkaline Phosphatase 41 U/L (38-126); Blood Urea Nitrogen 18 mg/dl (7-17); Calcium 7.7 mg/dl (8.4-10.2); Carbon Dioxide 28 mmol/L (22-30); Chloride 99 mmol/L (98-107); Direct Bilirubin 0.2 mg/dl (0.0-0.4); Estimated Creatinine Clearance 36 ml/min; Glucose 162 mg/dl (70-99); Magnesium 1.6 mg/dl (1.6-2.3); Potassium 4.4 mmol/L (3.5-5.1); Sodium 130 mmol/L (135-145); Total Bilirubin 0.7 mg/dl (0.2-1.3); Total Protein 4.3 g/dl (6.3-8.2); eGFR 54.19
[2023-09-30 08:04] LABS: Glucose - Point of Care 199 mg/dl (70-99)
[2023-09-30] MEDS: CALCIUM CARBONATE ORAL SUSP 500 MG TUBE ×2 (08:09→22:05)
[2023-09-30] MEDS: NSS (PRESERVATIVE FREE) 10 ML IV (08:09)
[2023-09-30] MEDS: PROTONIX IV 40 MG IV (08:09)
[2023-09-30] MEDS: NOVOLOG FLEXPEN-MODERATE RESISTANCE 1 UNITS SC (08:23)
--- NOTE | 2023-09-30 08:35 | W.PN.GI.CBS2 ---
Addendum entered and electronically signed by Apple Cross Do, MD 09/30/23 12:32:
I saw and examined the patient.
The GERIATRIC CASE MANAGER's note was reviewed and I agree with the note.
Comment: Evonne had AXR yesterday with significant stool burden. Milk of molasses enema ordered. Passed over 800mL of stool. Denies abd pain, N/V
Impression
- Overflow diarrhea from fecal impaction
- ? unclear of immunotherapy related colitis
- Metastatic melanoma
Recommendations
- Stop questran and immodium
- AXR repeated today with still some rectal stool burden. Repeat enema
- Start miralax daily basis
- Stop IV steroids
- Change to Pred 10mg daily until she can FU with her oncologist.
- Low reside diet
At this juncture GI will sign off please call for questions. She should have close OP FU with oncologist at GI at [facility].
Daughter updated by GI GERIATRIC CASE MANAGER today
Original Note:
Today's Communication / Plan
-
etiology of diarrhea related to constipation with overflow with increased stool burden on imaging and recent high dose questran prior to admission, immunotherapy related vs other
stool with loose stool with concern for overflow
abd film 09/28 as noted
s/p enema with some stool
questran stopped as may be constipating
will repeat abd x ray this am for stool burden
c-diff, giardia, crypto neg, other cx pending
appreciate renal for electrolyte imbalance
cont Imodium PRN
IV steroids held 09/28 will resume 20mg daily as was on taper from [facility] and due to go to 10mg daily on 10/01
trial low residue/low lactose, ADA diet
consider UGI with complaints of dysphagia with solids if any persistent symptoms
add PPI daily with dysphagia and recent prednisone use
s/p ENT eval with c/o hoarseness, OP laryngoscopy
[facility] records reviewed as above
will need follow up with Dr. Saha discussed with daughter consider telehealth if unable to get to office
daughter updated
Assessment / Plan
-
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 She has been on therapy Niolumab/Ipilimumab with [facility]( Dr. Santana). She did well
with first infusion then with second infusion had diarrhea. 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 She as also note with orthostasis and CITLALLI with acidosis and electrolyte imbalance during
admission. Pt was not seen by GI and flex or colonoscopy not completed but did have palliative care consult. She had improvement then had recurrent diarrhea and SNF and missed appt last week with oncology due to recurrent symptoms. She now
presents with recurrent diarrhea with profound hypokalemia and metabolic acidosis and asked to see.
09/08/23- CT A/p([facility]) -2.9 cm liver lesion mildly enlarged compared to recent MRI, 9 mm right renal pole cortical lesion indeterminate. Pneumobilia with similar pancreatic and biliary ductal dilation trace pericardial and trace right pleural
effusion
per family no know hx colonoscopy in past
09/29/23 Abd X ray
1. Large amount of fecal material in the rectum suggesting fecal impaction and possibly stercoral colitis.
2. No radiographic evidence for small bowel obstruction.
3. Osteoporosis.
4. Severe multilevel lumbar discogenic degenerative disease.
-diarrhea
-abd film with concern for fecal impaction and stercoral colitis
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
-hx melanoma of eye with resection and recurrent CA on immunotherapy
-dysphagia
-hoarseness s/p ENT eval -- ? GERD related
-hypokalemia
-hypocalcemia
-metabolic acidosis
-recent type 2 PA while at [facility]
other medical problems:
-Diabetes
-HTN
-afib
-TIA
-hx prior ERCP with Dr. Waite for choledocholithiasis 2021
-alyssa
PLAN:
etiology of diarrhea related to constipation with overflow with increased stool burden on imaging and recent high dose questran prior to admission, immunotherapy related vs other
stool with loose stool with concern for overflow
abd film 09/28 as noted
s/p enema with some stool
questran stopped as may be constipating
will repeat abd x ray this am for stool burden
c-diff, giardia, crypto neg, other cx pending
appreciate renal for electrolyte imbalance
cont Imodium PRN
IV steroids held 09/28 will resume 20mg daily as was on taper from [facility] and due to go to 10mg daily on 10/01
trial low residue/low lactose, ADA diet
consider UGI with complaints of dysphagia with solids if any persistent symptoms
add PPI daily with dysphagia and recent prednisone use
s/p ENT eval with c/o hoarseness, OP laryngoscopy
[facility] records reviewed as above
will need follow up with Dr. Saha
daughter updated
Subjective
Subjective
Date of Service: September 30, 2023
multiple stools prior and after enema with some urgency in 1800 ADA diet
Objective
Data Reviewed
Laboratory Data:
Laboratory Results
09/30/23 05:14
09/30/23 05:14
Laboratory Results
Phosphorus 2.0 mg/dl (2.5-4.5) L 09/30/23 05:14
Magnesium 1.6 mg/dl (1.6-2.3) 09/30/23 05:14
Total Bilirubin 0.7 mg/dl (0.2-1.3) 09/30/23 05:14
AST 40 U/L (14-36) H 09/30/23 05:14
ALT 66 U/L (0-35) H 09/30/23 05:14
Alkaline Phosphatase 41 U/L (38-126) 09/30/23 05:14
Vital Signs and I&O:
Vital Signs
Temp Pulse Resp BP Pulse Ox
98.2 F 75 23 121/64 98
09/30/23 03:35 09/30/23 06:00 09/30/23 06:00 09/30/23 06:00 09/30/23 00:59
I&O
09/29/23 09/30/23 10/01/23
06:59 06:59 06:59
Intake Total 2790 / 2790 2700 / 2700
Output Total 2300 / 2300 2000 / 2000 200 / 200
Balance 490 / 490 700 / 700 -200 / -200
Physical Exam
Physical Exam
HEENT: Anicteric and Moist mucous membranes
Cardiology: Normal Sinus Rhythm
Pulmonary: Clear
GI: Soft, Non Distended and Non Tender
Extremities: No Edema
Neuro: Non Focal and Other (some forgetfulness with MD aditya but oriented x 3 )
--- NOTE | 2023-09-30 08:54 | W.PN.HOSP.TC ---
Today's Communication/Plan
-
stable for med surg
Assessment / Plan
Assessment / Plan
HPI: 88-year-old female with history of melanoma currently getting immunological agent, developed persistent diarrhea with The second agent, she was in [facility], presented to the hospital for persistent diarrhea, workup showed
hyperchloremic metabolic acidosis, dehydration and hypokalemia.
#Anion gap metabolic acidosis
#Hypokalemia
Appreciate nephrology input
Due to diarrhea, resolved s/p sodium bicarb IV fluids
Hypokalemia resolved
PT rec HH, pt lives in independent facility
# Overflow diarrhea from fecal impaction
Appreciate GI input, abdominal x-ray shows significant stool burden
Status post enema, continue laxatives as per GI
Stop Questran and Imodium
#Immune related colitis
IV steroids changed back to oral steroids
Follow-up of her usual oncologist
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
On immunotherapy. Outpatient follow-up
#Dysphagia
Cleared for regular diet with thin liquids
#Gastroesophageal reflux disease
Continue PPI
#Hoarseness
Appreciate ENT input, recommend outpatient laryngoscopy
ENT suspects reflux
#Hypoalbuminemia
Protein supplements, nutrition consulted
# Paroxysmal atrial fibrillation
Currently in normal sinus rhythm
#Type 2 diabetes
A1C 6.5
Carb controlled diet, SSI
DVT prophylaxis�subcu Lovenox
DNR
Updated daughter on phone 09/29
Total time spent to see the patient on the floor, examine the patient, review data and lab results, discuss treatment plan with patient, nursing staff around 52 minutes.
Physical Exam
General: No acute distress
HEENT: Normocephalic, Atraumatic, EOMI, MMM
Left eye enucleation noted
Hoarse voice
Respiratory: Clear to Auscultation bilaterally
Cardiac: Normal S1/S2, Regular Rate and Rhythm
GI: Soft, Nontender, Nondistended, Normal Bowel Sounds
Extremities: No Clubbing, Cyanosis
Bilateral lower extremity edema noted
Neuro: Nonfocal/Grossly Intact
Anticipated Discharge: 24 - 48 hours
Subjective/Interval History
-
Date of Service: September 30, 2023
Diarrhea resolved. No nausea, no vomiting.
Objective Data
-
Labs:
Laboratory Results
09/30/23
05:14
WBC 5.0
Hgb 9.5 L
Hct 26.6 L
Plt Count 142
Sodium 130 L
Potassium 4.4
Chloride 99
Carbon Dioxide 28
BUN 18 H
Creatinine 1.0
Glucose 162 H
Calcium 7.7 L
Total Bilirubin 0.7
AST 40 H
ALT 66 H
Alkaline Phosphatase 41
Vital Signs:
Vital Signs
Temp Pulse Resp BP Pulse Ox
98.2 F 75 23 121/64 98
09/30/23 03:35 09/30/23 06:00 09/30/23 06:00 09/30/23 06:00 09/30/23 00:59
I&O
09/29/23 09/30/23 10/01/23
06:59 06:59 06:59
Intake Total 2790 / 2790 2700 / 2700
Output Total 2300 / 2300 2000 / 2000 200 / 200
Balance 490 / 490 700 / 700 -200 / -200
[2023-09-30] MEDS: DELTASONE 20 MG PO (09:43)
[2023-09-30 10:50] LABS: Osmolality Serum 280 mOsm/kg (275-300)
--- NOTE | 2023-09-30 11:36 | CM ---
Patient from [facility] with Hx melanoma with liver mets on immunotherapy with Dx persistent diarrhea, hyperchloremic metabolic acidosis, dehydration, constipation. Room air. PT & OT recommend HH.
Met with patient yesterday and today. Patient alert however somewhat forgetful and did not seem to know she came from SNF for rehab.
Spoke with daughter JASMEET Kelley; the patient resides alone at [facility] in 2nd floor apt with elevator.
She had been doing well and caring for herself until a few months ago.
She was independent in ADLs and ambulation with her RW, going to the gym and working out.
DME RW, SPC
No prior VN
Prior [facility]
PCP - Joe Champagne
Pharmacy - [address], [place], also [facility]
Discussed patient's current functional status per PT/OT with daughter. Allie was made aware that the SNF would like the patient to return to complete rehab even if insurance declines. Daughter agrees with patient returning to [facility] for rehab as long as there is no additional expense involved. She will reach out to Lynn Chaney in [place] at the SNF to discuss.
Spoke with Lynn Chaney, [place] [facility] (ph [phone] x [phone], fax [phone]); clinical update provided. The patient went to their SNF from [facility] on 09/17. The patient was close to completing rehab when she had to be sent to
. They would like her to return to their rehab unit for a week prior to returning to Independent Living, and will accept her even if the SNF auth is declined. They do not have [employer] and referral needs to be faxed. NPIs for SNF auth:
[facility] [id number], Dr Ana Laura [place] [id number].
Plan follow up with daughter if she agrees with patient going to [facility] at d/c.
[2023-09-30 11:43] LABS: Glucose - Point of Care 275 mg/dl (70-99)
[2023-09-30] MEDS: NOVOLOG FLEXPEN-MODERATE RESISTANCE 5 UNITS SC ×2 (11:55→16:50)
[2023-09-30] MEDS: MIRALAX 17 GRAMS PO (14:03)
--- NOTE | 2023-09-30 14:10 | W.PN.NEPH.PH ---
Today's Communication / Plan
-
- off sodium bicarb
Assessment/Plan
-
Assessment
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
Persistent diarrhea
Hypokalemia
hypocalcemia
Metabolic acidosis
Diabetes mellitus type 2
Atrial fibrillation
Hypoalbuminemia
Edema
Plan
K normalized after repletion
Ca a bit low, might need IV replacement again if lower
Protein supplements will be added
bicarb now normalized, off bicarb gtt
There may also be a protein-losing enteropathy but we will evaluate for other causes of hypoalbuminemia
Serial blood work
Discussed with patient
-
-
Date of Service: September 30, 2023
CC / HPI / ROS
-
Chief Complaint:
acidosis, hypocalcemia, hypokalemia
History of Present Illness:
s/p aggressive repletion of K and Ca --> now normalized
acidosis normalized
GI on board for diarrhea
Review of Systems:
feels better after electrolyte repletion
Labs
-
Labs:
WBC 5.0 10^3/uL (4.8-10.8) 09/30/23 05:14
RBC 3.23 10^6/uL (4.20-5.40) L 09/30/23 05:14
Hgb 9.5 g/dL (12.0-16.0) L 09/30/23 05:14
Hct 26.6 % (37.0-47.0) L 09/30/23 05:14
Plt Count 142 10^3/uL (130-400) 09/30/23 05:14
Sodium 130 mmol/L (135-145) L 09/30/23 05:14
Potassium 4.4 mmol/L (3.5-5.1) 09/30/23 05:14
Chloride 99 mmol/L (98-107) 09/30/23 05:14
Carbon Dioxide 28 mmol/L (22-30) 09/30/23 05:14
BUN 18 mg/dl (7-17) H 09/30/23 05:14
Creatinine 1.0 mg/dL (0.6-1.0) 09/30/23 05:14
eGFR 54.19 09/30/23 05:14
Glucose 162 mg/dl (70-99) H 09/30/23 05:14
Calcium 7.7 mg/dl (8.4-10.2) L 09/30/23 05:14
Phosphorus 2.0 mg/dl (2.5-4.5) L 09/30/23 05:14
Albumin 2.3 g/dl (3.5-5.0) L 09/30/23 05:14
Physical Exam
-
Vital Signs:
Vital Signs
Temp Pulse Resp BP Pulse Ox
97.8 F 93 28 118/89 98
09/30/23 11:41 09/30/23 10:16 09/30/23 10:16 09/30/23 10:16 09/30/23 13:48
Cardiovascular:: Regular rate and rhythm
Respiratory:: Bilateral: Coarse
Lung Excursion:: Normal
Abdomen:: Nontender and Soft
Bowel Sounds:: Normal
Extremity Edema:: +2: Bilateral:
Arnett Catheter: No
--- NOTE | 2023-09-30 15:36 | PTCARENOTE ---
received pt from shift commander, AAOx3, resting comfortably in the bed. OOB x1 and utilizes BSC. Xray today which showed moderate volume fecal material in the rectum. GI ordered an enema and Miralax, administered both. moderate sized soft brown BM.
call cross in reach
[2023-09-30 16:28] LABS: Glucose - Point of Care 251 mg/dl (70-99)
--- NOTE | 2023-09-30 17:37 | PTCARENOTE ---
Gave report to Mita RHODES, on 4W, who is receiving pt. Pt moving to room 419 bed 1. Transport picked up patient. Pt has all belongings.
[2023-09-30] MEDS: LOVENOX 40 MG SC (17:53)
--- NOTE | 2023-09-30 21:20 | PTCARENOTE ---
Patient found on floor in bathroom. Patient stated she stood to pull up brief and stepped on gown. She said she 'slipped gently to floor'. She denies injuries. She was laying on left side. Patient was assisted to bed. VSS. No obvious
injuries noted. [employer]URING CONSULTANT, covering house in to evaluate. No orders given. Bed and chair alarm in place.
--- NOTE | 2023-09-30 21:52 | W.PN.UPDATE ---
Update Note
Progress Note Update
RN notified patient had a fall. Patient seen and evaluated. Patient is AAOx3, stated she was try to pull up the pants and accidently stepped on her pants and gently slipped to the floor to a sitting position. Denies hitting head or buttocks. no
bruises cuts noted. Able to move bend legs, strength 5/5. stable VS. Bed alarm placed. Fall precautions maintained.
[2023-10-01 00:18] LABS: Glucose - Point of Care 183 mg/dl (70-99)
[2023-10-01 00:41] LABS: Osmolality Urine 170 mOsm/kg (300-900)
[2023-10-01 00:43] LABS: Urine Sodium 59 mmol/L (30-90)
--- NOTE | 2023-10-01 03:16 | DOWNTIME ---
There was a [employer] Client [employer] Downtime on 10/01/2023 from 0100 to 10/01/2023 at 0255. Downtime documentation of patient's care, including medication administrations, has been reconciled in the electronic record per guidelines. Refer to the
patient's paper chart under the miscellaneous tab to see printed paper medication records and downtime forms.
[2023-10-01 06:00] VITALS: BMI 30.5
[2023-10-01 07:00] VITALS: BP 136/69
[2023-10-01 08:20] LABS: Hematocrit 27.3 % (37.0-47.0); Hemoglobin 9.9 g/dL (12.0-16.0); Mean Corp Hgb Conc. 36.3 g/dL (33.0-37.0); Mean Corpuscular Hgb 29.9 pg (27.0-31.0); Mean Corpuscular Volume 82.5 fL (81.0-99.0); Mean Platelet Volume 11.2 fL (7.4-10.4); Platelet Count 142 10^3/uL (130-400); Red Blood Cell Count 3.31 10^6/uL (4.20-5.40); Red Cell Dist. Width 14.4 % (11.5-14.5); White Blood Cell Count 4.7 10^3/uL (4.8-10.8)
[2023-10-01 08:41] LABS: ALT (SGPT) 71 U/L (0-35); AST (SGOT) 39 U/L (14-36); Albumin 2.5 g/dl (3.5-5.0); Alkaline Phosphatase 46 U/L (38-126); Blood Urea Nitrogen 18 mg/dl (7-17); Calcium 8.1 mg/dl (8.4-10.2); Carbon Dioxide 25 mmol/L (22-30); Chloride 99 mmol/L (98-107); Direct Bilirubin 0.2 mg/dl (0.0-0.4); Estimated Creatinine Clearance 40 ml/min; Glucose 176 mg/dl (70-99); Potassium 4.6 mmol/L (3.5-5.1); Sodium 130 mmol/L (135-145); Total Bilirubin 0.6 mg/dl (0.2-1.3); Total Protein 4.5 g/dl (6.3-8.2); eGFR > 60.00
--- NOTE | 2023-10-01 08:45 | W.PN.HOSP.TC ---
Today's Communication/Plan
-
For colonoscopy tomorrow
Assessment / Plan
Assessment / Plan
HPI: 88-year-old female with history of melanoma currently getting immunological agent, developed persistent diarrhea with The second agent, she was in [facility], presented to the hospital for persistent diarrhea, workup showed
hyperchloremic metabolic acidosis, dehydration and hypokalemia.
#Colitis
Patient recently treated for immunotherapy related colitis at [place]
IV steroids changed back to oral steroids
GI plans for colonoscopy tomorrow
Follow-up with her usual oncologist in the office
PT rec HH, pt lives in independent facility
# Overflow diarrhea from fecal impaction
Appreciate GI input, abdominal x-ray shows significant stool burden
Status post enema, continue laxatives as per GI
S/p Questran and Imodium
#Hyponatremia
TSH/a.m. cortisol normal
Started on sodium chloride tablets 0.5 mg twice a day by nephrology 09/30
Continue fluid restriction, trend sodium
#Anion gap metabolic acidosis
#Hypokalemia
Appreciate nephrology input
Due to diarrhea, resolved s/p sodium bicarb IV fluids
Hypokalemia resolved
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
On immunotherapy. Outpatient follow-up
#Dysphagia
Cleared for regular diet with thin liquids by SPL, she has been tolerating
#Gastroesophageal reflux disease
Continue PPI
#Hoarseness
Appreciate ENT input, recommend outpatient laryngoscopy
ENT suspects reflux
#Hypoalbuminemia
Protein supplements, nutrition consulted
# Paroxysmal atrial fibrillation
Currently in normal sinus rhythm
#Type 2 diabetes
A1C 6.5
Carb controlled diet, SSI
DVT prophylaxis�subcu Lovenox
DNR
Updated daughter on phone 09/30
Total time spent to see the patient on the floor, examine the patient, review data and lab results, discuss treatment plan with patient, nursing staff around 51 minutes.
Physical Exam
General: No acute distress
HEENT: Normocephalic, Atraumatic, EOMI, MMM
Left eye enucleation noted
Hoarse voice
Respiratory: Clear to Auscultation bilaterally
Cardiac: Normal S1/S2, Regular Rate and Rhythm
GI: Soft, Nontender, Nondistended, Normal Bowel Sounds
Extremities: No Clubbing, Cyanosis
Bilateral lower extremity edema noted
Neuro: Nonfocal/Grossly Intact
Anticipated Discharge: 24 - 48 hours
Subjective/Interval History
-
Date of Service: October 01, 2023
Nursing staff reports patient having a large amount of liquid diarrhea this morning. No fever, no vomiting.
Objective Data
-
Labs:
Laboratory Results
10/01/23 10/01/23
07:24 07:25
WBC 4.7 L
Hgb 9.9 L
Hct 27.3 L
Plt Count 142
Sodium 130 L
Potassium 4.6
Chloride 99
Carbon Dioxide 25
BUN 18 H
Creatinine 0.9
Glucose 176 H
Calcium 8.1 L
Total Bilirubin 0.6
AST 39 H
ALT 71 H
Alkaline Phosphatase 46
Vital Signs:
Vital Signs
Temp Pulse Resp BP Pulse Ox
98.1 F 86 18 119/66 98
09/30/23 23:10 09/30/23 23:10 09/30/23 23:10 09/30/23 23:10 09/30/23 23:10
I&O
09/30/23 10/01/23 10/02/23
06:59 06:59 06:59
Intake Total 2700 / 2700 1700 / 1700
Output Total 2000 / 2000 200 / 200
Balance 700 / 700 1500 / 1500
[2023-10-01] MEDS: PROTONIX IV 40 MG IV (09:01)
[2023-10-01] MEDS: DELTASONE 20 MG PO (09:01)
[2023-10-01] MEDS: CALCIUM CARBONATE ORAL SUSP 500 MG TUBE ×2 (09:01→20:16)
[2023-10-01] MEDS: NSS (PRESERVATIVE FREE) 10 ML IV (09:02)
[2023-10-01] MEDS: MIRALAX PO (09:02)
[2023-10-01 09:05] LABS: Glucose - Point of Care 227 mg/dl (70-99)
[2023-10-01] MEDS: NOVOLOG FLEXPEN-MODERATE RESISTANCE 3 UNITS SC ×3 (09:05→17:18)
[2023-10-01 09:09] LABS: Cortisol, Random 22.7 ug/dl; TSH Reflex To Free T4 1.11 uIU/ml (0.47-4.68)
--- NOTE | 2023-10-01 09:56 | CM ---
Spoke with daughter Allie, currently out of town.
She is available by phone.
Recently in skilled rehab at [facility].
PT recommending home with HC.
Son or granddaughter will transport on d/c.
Plan: Home with [facility]
--- NOTE | 2023-10-01 10:02 | CM ---
Spoke with daughter Allie, currently out of town.
She is available by phone.
Recently in skilled rehab at [facility].
PT recommending home with HC.
[facility] would like patient to complete rehab with them.
Will fax referral when stable and attempt insurance authorization.
Plan skilled rehab when stable.
--- NOTE | 2023-10-01 10:25 | W.PN.GI.CBS2 ---
Addendum entered and electronically signed by Apple Cross Do, MD 10/01/23 14:22:
I saw and examined the patient.
The LIBRARY MONITOR's note was reviewed and I agree with the note.
Comment: She continues to have diarrhea. Denies abd pain. Exam VSS enucleated L eye, NTTP, sitting in chair OOB. Labs reviewed
Plan
- Hold miralax
- Start golytle prep now and plan for colonoscopy tomorrow
- NPO at [facility]
- Will follow with you
Daughter updated by GI LIBRARY MONITOR today
Addendum entered and electronically signed by DAMIAN Nieves 10/01/23 11:17:
reviewed with Dr. Molsey -- plan for colonoscopy tomorrow to confirm immune related colitis vs collagenous colitis vs other-- daughter updated on plan
Original Note:
Today's Communication / Plan
-
etiology of diarrhea related to constipation with overflow with increased stool burden on imaging and recent high dose questran prior to admission, immunotherapy related vs other
s/p enema with Questran stopped and Miralax give and now with diarrhea again
still unclear if this is med related vs immunotherapy related
will review with Dr. Mosley if need to proceed with flex vs colonoscopy
infectious work up neg except ecoli pending
cont Imodium PRN
on continued prednisone taper as recommended from [facility]
low residue/low lactose, ADA diet
consider UGI with complaints of dysphagia with solids if any persistent symptoms
cont PPI
s/p ENT eval with c/o hoarseness, OP laryngoscopy
[facility] records reviewed as above
will need follow up with Dr. Saha
daughter updated 09/29
Assessment / Plan
-
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 She has been on therapy Niolumab/Ipilimumab with [facility]( Dr. Santana). She did well
with first infusion then with second infusion had diarrhea. 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 She as also note with orthostasis and CITLALLI with acidosis and electrolyte imbalance during
admission. Pt was not seen by GI and flex or colonoscopy not completed but did have palliative care consult. She had improvement then had recurrent diarrhea and SNF and missed appt last week with oncology due to recurrent symptoms. She now
presents with recurrent diarrhea with profound hypokalemia and metabolic acidosis and asked to see.
09/08/23- CT A/p([facility]) -2.9 cm liver lesion mildly enlarged compared to recent MRI, 9 mm right renal pole cortical lesion indeterminate. Pneumobilia with similar pancreatic and biliary ductal dilation trace pericardial and trace right pleural
effusion
per family no know hx colonoscopy in past
09/29/23 Abd X ray
1. Large amount of fecal material in the rectum suggesting fecal impaction and possibly stercoral colitis.
2. No radiographic evidence for small bowel obstruction.
3. Osteoporosis.
4. Severe multilevel lumbar discogenic degenerative disease.
09/30/23 abd X ray
Moderate volume fecal material in the rectum, decreased from study of preceding day.
-diarrhea
-abd film with concern for fecal impaction and stercoral colitis
-recent admission to [facility] with concern for immune related colitis
-hx melanoma of eye with resection and recurrent CA on immunotherapy
-dysphagia
-hoarseness s/p ENT eval -- ? GERD related
-hypokalemia on admission
-hypocalcemia on admission
-hyponatremia
-metabolic acidosis
-recent type 2 HI while at [facility]
other medical problems:
-Diabetes
-HTN
-afib
-TIA
-hx prior ERCP with Dr. Waite for choledocholithiasis 2021
-alyssa
PLAN:
etiology of diarrhea related to constipation with overflow with increased stool burden on imaging and recent high dose questran prior to admission, immunotherapy related vs other
s/p enema with Questran stopped and Miralax give and now with diarrhea again
still unclear if this is med related vs immunotherapy related
will review with Dr. Mosley if need to proceed with flex vs colonoscopy
infectious work up neg except ecoli pending
cont Imodium PRN
on continued prednisone taper as recommended from [facility]
low residue/low lactose, ADA diet
consider UGI with complaints of dysphagia with solids if any persistent symptoms
cont PPI
s/p ENT eval with c/o hoarseness, OP laryngoscopy
[facility] records reviewed as above
will need follow up with Dr. Saha
daughter updated 09/29
Subjective
Subjective
Date of Service: October 01, 2023
asked to reassess for increased diarrhea this am with 3 episodes of loose stool, on ADA diet
Objective
Data Reviewed
Laboratory Data:
Laboratory Results
10/01/23 07:25
10/01/23 07:24
Laboratory Results
Phosphorus 2.0 mg/dl (2.5-4.5) L 09/30/23 05:14
Magnesium 1.6 mg/dl (1.6-2.3) 09/30/23 05:14
Total Bilirubin 0.6 mg/dl (0.2-1.3) 10/01/23 07:24
AST 39 U/L (14-36) H 10/01/23 07:24
ALT 71 U/L (0-35) H 10/01/23 07:24
Alkaline Phosphatase 46 U/L (38-126) 10/01/23 07:24
Vital Signs and I&O:
Vital Signs
Temp Pulse Resp BP Pulse Ox
98.0 F 85 16 136/69 99
10/01/23 07:00 10/01/23 07:00 10/01/23 07:00 10/01/23 07:00 10/01/23 07:00
I&O
09/30/23 10/01/23 10/02/23
06:59 06:59 06:59
Intake Total 2700 / 2700 1700 / 1700
Output Total 2000 / 1999 200 / 200
Balance 700 / 700 1500 / 1500
Physical Exam
Physical Exam
HEENT: Anicteric and Moist mucous membranes
Cardiology: Normal Sinus Rhythm
Pulmonary: Clear
GI: Soft, Non Distended and Non Tender
Extremities: No Edema
Neuro: Non Focal
--- NOTE | 2023-10-01 11:18 | W.PN.NEPH.PH ---
Today's Communication / Plan
-
salt
Assessment/Plan
-
Assessment
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
Persistent diarrhea
Hypokalemia
hypocalcemia
Metabolic acidosis
Diabetes mellitus type 2
Atrial fibrillation
Hypoalbuminemia
Edema
Plan
add salt tabs for now while diarrhea persists
FR still
follow BMP
-
-
Date of Service: October 01, 2023
CC / HPI / ROS
-
Chief Complaint:
acidosis, hypocalcemia, hypokalemia
History of Present Illness:
s/p aggressive repletion of K and Ca --> now normalized
acidosis normalized
BP stable
now Na low 130
Review of Systems:
no CP/SOB
still with diarrhea
Labs
-
Labs:
WBC 4.7 10^3/uL (4.8-10.8) L 10/01/23 07:25
RBC 3.31 10^6/uL (4.20-5.40) L 10/01/23 07:25
Hgb 9.9 g/dL (12.0-16.0) L 10/01/23 07:25
Hct 27.3 % (37.0-47.0) L 10/01/23 07:25
Plt Count 142 10^3/uL (130-400) 10/01/23 07:25
Sodium 130 mmol/L (135-145) L 10/01/23 07:24
Potassium 4.6 mmol/L (3.5-5.1) 10/01/23 07:24
Chloride 99 mmol/L (98-107) 10/01/23 07:24
Carbon Dioxide 25 mmol/L (22-30) 10/01/23 07:24
BUN 18 mg/dl (7-17) H 10/01/23 07:24
Creatinine 0.9 mg/dL (0.6-1.0) 10/01/23 07:24
eGFR > 60.00 10/01/23 07:24
Glucose 176 mg/dl (70-99) H 10/01/23 07:24
Calcium 8.1 mg/dl (8.4-10.2) L 10/01/23 07:24
Phosphorus 2.0 mg/dl (2.5-4.5) L 09/30/23 05:14
Albumin 2.5 g/dl (3.5-5.0) L 10/01/23 07:24
Physical Exam
-
Vital Signs:
Vital Signs
Temp Pulse Resp BP Pulse Ox
98.0 F 85 16 136/69 99
10/01/23 07:00 10/01/23 07:00 10/01/23 07:00 10/01/23 07:00 10/01/23 07:00
Cardiovascular:: Regular rate and rhythm
Respiratory:: Bilateral: Coarse
Lung Excursion:: Normal
Abdomen:: Nontender and Soft
Bowel Sounds:: Normal
Extremity Edema:: None: Bilateral:
[2023-10-01 12:11] LABS: Glucose - Point of Care 217 mg/dl (70-99)
[2023-10-01] MEDS: DULCOLAX 10 MG PO (12:22)
[2023-10-01 15:00] VITALS: BP 135/71
[2023-10-01] MEDS: NULYTELY SOLUTION 4 LITERS PO (15:48)
[2023-10-01] MEDS: SODIUM CHLORIDE 0.5 GRAM PO ×2 (15:48→20:15)
[2023-10-01 16:58] LABS: Glucose - Point of Care 219 mg/dl (70-99)
[2023-10-01] MEDS: LOVENOX 40 MG SC (17:19)
[2023-10-01 22:16] LABS: Glucose - Point of Care 191 mg/dl (70-99)
[2023-10-01 23:36] VITALS: BP 116/77
[2023-10-02] VITALS (7 sets, daily range): BP systolic 18–141; BP diastolic 63–89; PULSE 93; BMI 30.3
[2023-10-02 06:19] LABS: Glucose - Point of Care 177 mg/dl (70-99)
--- NOTE | 2023-10-02 08:01 | W.PN.HOSP.TC ---
Today's Communication/Plan
-
see bold
Assessment / Plan
Assessment / Plan
HPI: 88-year-old female with history of melanoma currently getting immunological agent, developed persistent diarrhea with The second agent, she was in [facility], presented to the hospital for persistent diarrhea, workup showed
hyperchloremic metabolic acidosis, dehydration and hypokalemia.
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
Patient recently treated for immunotherapy related colitis at [place]
IV steroids changed back to oral steroids
Appreciate GI input, 10/01 colonoscopy showed nonbleeding internal hemorrhoids, diverticulosis, stricture in the sigmoid colon
GI recommends barium RF enema, f/u on biopsies to assess for microscopic colitis
Follow-up with her usual oncologist in the office
PT rec HH, pt lives in independent facility
# Overflow diarrhea from fecal impaction
Appreciate GI input, abdominal x-ray shows significant stool burden
Status post enema, continue laxatives as per GI
S/p Questran and Imodium
#Hyponatremia
TSH/a.m. cortisol normal
Started on sodium chloride tablets 0.5 mg twice a day by nephrology 09/30
Continue fluid restriction, trend sodium
#Chronic normocytic anemia
Follow-up iron studies, B12/folic acid, trend hemoglobin
#Anion gap metabolic acidosis
#Hypokalemia
Appreciate nephrology input
Due to diarrhea, resolved s/p sodium bicarb IV fluids
Hypokalemia resolved
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
On immunotherapy. Outpatient follow-up
#Dysphagia
Cleared for regular diet with thin liquids by SPL, she has been tolerating
#Gastroesophageal reflux disease
Continue PPI
#Hoarseness
Appreciate ENT input, recommend outpatient laryngoscopy
ENT suspects reflux
#Hypoalbuminemia
Protein supplements, nutrition consulted
# Paroxysmal atrial fibrillation
Currently in normal sinus rhythm
#Type 2 diabetes
A1C 6.5
Carb controlled diet, SSI
DVT prophylaxis�subcu Lovenox
DNR
Updated daughter on phone 09/30
Total time spent to see the patient on the floor, examine the patient, review data and lab results, discuss treatment plan with patient, nursing staff around 50 minutes.
Physical Exam
General: No acute distress
HEENT: Normocephalic, Atraumatic, EOMI, MMM
Left eye enucleation noted
Hoarse voice
Respiratory: Clear to Auscultation bilaterally
Cardiac: Normal S1/S2, Regular Rate and Rhythm
GI: Soft, Nontender, Nondistended, Normal Bowel Sounds
Extremities: No Clubbing, Cyanosis
Bilateral lower extremity edema noted
Neuro: Nonfocal/Grossly Intact
Anticipated Discharge: 24 - 48 hours
Subjective/Interval History
-
Date of Service: October 02, 2023
Patient denies abdominal pain. She still having loose stools from the bowel prep. No fever, no vomiting.
Objective Data
-
Labs:
Laboratory Results
10/02/23
06:00
WBC Pending
Hgb Pending
Hct Pending
Plt Count Pending
Sodium Pending
Potassium Pending
Chloride Pending
Carbon Dioxide Pending
BUN Pending
Creatinine Pending
Glucose Pending
Calcium Pending
Total Bilirubin Pending
AST Pending
ALT Pending
Alkaline Phosphatase Pending
Vital Signs:
Vital Signs
Temp Pulse Resp BP Pulse Ox
97.4 F 101 16 116/77 99
10/01/23 23:36 10/01/23 23:36 10/01/23 23:36 10/01/23 23:36 10/01/23 23:36
I&O
10/01/23 10/02/23 10/03/23
06:59 06:59 06:59
Intake Total 1700 / 1700 336 / 3360
Output Total 200 / 200
Balance 1500 / 1500 3359 / 3360
[2023-10-02 08:25] LABS: Glucose - Point of Care 201 mg/dl (70-99)
[2023-10-02] MEDS: NOVOLOG FLEXPEN-MODERATE RESISTANCE SC (08:27)
[2023-10-02] MEDS: PROTONIX IV 40 MG IV (08:27)
[2023-10-02] MEDS: CALCIUM CARBONATE ORAL SUSP 500 MG TUBE ×2 (08:27→20:05)
[2023-10-02] MEDS: DELTASONE 10 MG PO (08:27)
[2023-10-02] MEDS: SODIUM CHLORIDE 0.5 GRAM PO ×2 (08:27→20:04)
[2023-10-02] MEDS: NSS (PRESERVATIVE FREE) 10 ML IV (08:27)
[2023-10-02 09:57] LABS: Glucose - Point of Care 180 mg/dl (70-99)
[2023-10-02 11:29] LABS: ALT (SGPT) 76 U/L (0-35); AST (SGOT) 41 U/L (14-36); Albumin 2.5 g/dl (3.5-5.0); Alkaline Phosphatase 47 U/L (38-126); Blood Urea Nitrogen 15 mg/dl (7-17); Calcium 8.1 mg/dl (8.4-10.2); Carbon Dioxide 25 mmol/L (22-30); Chloride 99 mmol/L (98-107); Direct Bilirubin 0.2 mg/dl (0.0-0.4); Estimated Creatinine Clearance 35 ml/min; Glucose 181 mg/dl (70-99); Iron 43 ug/dl (37-170); Potassium 4.4 mmol/L (3.5-5.1); Sodium 131 mmol/L (135-145); Total Bilirubin 0.6 mg/dl (0.2-1.3); Total Protein 4.6 g/dl (6.3-8.2); eGFR 54.19
[2023-10-02 11:48] LABS: Hematocrit 29.3 % (37.0-47.0); Hemoglobin 10.3 g/dL (12.0-16.0); Mean Corp Hgb Conc. 35.2 g/dL (33.0-37.0); Mean Corpuscular Hgb 29.5 pg (27.0-31.0); Mean Platelet Volume 11.1 fL (7.4-10.4); Platelet Count 94 10^3/uL (130-400); Red Blood Cell Count 3.49 10^6/uL (4.20-5.40); Red Cell Dist. Width 14.5 % (11.5-14.5)
[2023-10-02 12:10] LABS: Glucose - Point of Care 215 mg/dl (70-99)
[2023-10-02] MEDS: NOVOLOG FLEXPEN-MODERATE RESISTANCE 3 UNITS SC (12:14)
[2023-10-02] MEDS: NEUTRA-PHOS POWDER PACKET 500 MG PO (12:30)
--- NOTE | 2023-10-02 13:05 | W.PN.NEPH.PH ---
Today's Communication / Plan
-
follow BMP
Assessment/Plan
-
Assessment
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
Persistent diarrhea
Hypokalemia
hypocalcemia
Metabolic acidosis
Diabetes mellitus type 2
Atrial fibrillation
Hypoalbuminemia
Edema
Plan
continue low dose NaCl
FR still
may need lasix
follow BMP
-
-
Date of Service: October 02, 2023
CC / HPI / ROS
-
Chief Complaint:
acidosis, hypocalcemia, hypokalemia
History of Present Illness:
s/p aggressive repletion of K and Ca --> now normalized
acidosis normalized
BP stable
now Na low 131
Review of Systems:
no CP/SOB
Labs
-
Labs:
WBC 5.0 10^3/uL (4.8-10.8) 10/02/23 10:38
RBC 3.49 10^6/uL (4.20-5.40) L 10/02/23 10:38
Hgb 10.3 g/dL (12.0-16.0) L 10/02/23 10:38
Hct 29.3 % (37.0-47.0) L 10/02/23 10:38
Plt Count 94 10^3/uL (130-400) L D 10/02/23 10:38
Sodium 131 mmol/L (135-145) L 10/02/23 10:38
Potassium 4.4 mmol/L (3.5-5.1) 10/02/23 10:38
Chloride 99 mmol/L (98-107) 10/02/23 10:38
Carbon Dioxide 25 mmol/L (22-30) 10/02/23 10:38
BUN 15 mg/dl (7-17) 10/02/23 10:38
Creatinine 1.0 mg/dL (0.6-1.0) 10/02/23 10:38
eGFR 54.19 10/02/23 10:38
Glucose 181 mg/dl (70-99) H 10/02/23 10:38
Calcium 8.1 mg/dl (8.4-10.2) L 10/02/23 10:38
Phosphorus 2.0 mg/dl (2.5-4.5) L 09/30/23 05:14
Albumin 2.5 g/dl (3.5-5.0) L 10/02/23 10:38
Physical Exam
-
Vital Signs:
Vital Signs
Temp Pulse Resp BP Pulse Ox
97.6 F 89 18 130/74 100
10/02/23 10:15 10/02/23 10:15 10/02/23 10:15 10/02/23 10:15 10/02/23 10:15
Cardiovascular:: Regular rate and rhythm
Respiratory:: Bilateral: Coarse
Lung Excursion:: Normal
Abdomen:: Nontender and Soft
Bowel Sounds:: Normal
Extremity Edema:: +2: Bilateral:
[2023-10-02 13:19] LABS: Folate 11.4 ng/ml (2.76-20)
[2023-10-02 13:51] LABS: Magnesium 1.4 mg/dl (1.6-2.3); Phosphorus 2.4 mg/dl (2.5-4.5)
[2023-10-02 14:31] LABS: Vitamin B12 > 1000 pg/ml (239-931)
[2023-10-02] MEDS: MAGNESIUM SULFATE 50 IV (14:36)
--- NOTE | 2023-10-02 15:22 | CM ---
Addendum entered by Loan Dorsey 10/03/23 17:03:
Spoke with Lynn from [facility].
They are able to accept on Friday.
Lynn aware auth is pending.
She will take patient tomorrow even if auth denied by insurance.
Daughter Allie updated. She will transport.
IMM completed.
Clinicals faxed to Allie at [phone]
Please call Jessica Martinez, adminstrator. for report numbers and to make sure staffing allows for admission.
Original Note:
TC Lynn Shiv, [facility] (ph [phone] x [phone], fax [phone]).
They will accept patient back with insurance auth for skilled rehab if appropriate and approved by insurance.
Patient will need updated therapy notes in am to attempt insurance auth for Friday (therapy updated).
Per Lynn they can accept back to the skilled facility on Friday if it is set up on Friday..
Per Lynn if she is not approved by insurance or not appropriate for skilled rehab, and the patient wishes to return to the snf, they will accept her back under her medicare Part B benefit for therapy. Patient would be responsible for her copays for
therapy and medications. She would not be charged for room and board.
If patient is not approved by insurance or not appropriate for skilled rehab and wishes to return to her apartment, she could do that with [facility]. Again it would be the same cost as being inpatient skilled because she will be covered under
part b service and be responsible for copays.
If patient returns to [facility] on Friday, the Wellness office will need to be notified. the Office # is [phone]. Homecare would need to be arranged.
[facility]
option 2

Await updated PT/OT notes 10/03/23. if appropriate initiate insurance auth.
Please update daughter with plan.
[2023-10-02 16:27] LABS: Glucose - Point of Care 307 mg/dl (70-99)
[2023-10-02] MEDS: NOVOLOG FLEXPEN-MODERATE RESISTANCE 7 UNITS SC (16:29)
[2023-10-02] MEDS: LOVENOX 40 MG SC (17:13)
[2023-10-02] MEDS: NEUTRA-PHOS POWDER PACKET 250 MG PO ×2 (17:14→21:15)
[2023-10-02] MEDS: MAGNESIUM OXIDE 500 MG PO (20:04)
[2023-10-02 21:25] LABS: Glucose - Point of Care 273 mg/dl (70-99)
[2023-10-03 06:00] VITALS: BMI 29.3
[2023-10-03 07:47] LABS: Glucose - Point of Care 265 mg/dl (70-99)
[2023-10-03] MEDS: DELTASONE 10 MG PO (07:50)
[2023-10-03] MEDS: NSS (PRESERVATIVE FREE) 10 ML IV (07:51)
[2023-10-03] MEDS: MAGNESIUM OXIDE 500 MG PO (07:51)
[2023-10-03] MEDS: SODIUM CHLORIDE 0.5 GRAM PO ×2 (07:51→19:53)
[2023-10-03] MEDS: CALCIUM CARBONATE ORAL SUSP 500 MG TUBE ×2 (07:51→19:51)
[2023-10-03] MEDS: PROTONIX IV 40 MG IV (07:52)
[2023-10-03] MEDS: NOVOLOG FLEXPEN-MODERATE RESISTANCE 5 UNITS SC (07:56)
[2023-10-03 08:03] VITALS: BP 133/67
--- NOTE | 2023-10-03 08:30 | W.PN.HOSP.TC ---
Today's Communication/Plan
-
Miralax
Discharge tomorrow
Assessment / Plan
Assessment / Plan
HPI: 88-year-old female with history of melanoma currently getting immunological agent, developed persistent diarrhea with The second agent, she was in [facility], presented to the hospital for persistent diarrhea, workup showed
hyperchloremic metabolic acidosis, dehydration and hypokalemia.
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
Patient recently treated for immunotherapy related colitis at [place]
IV steroids changed back to oral steroids
Appreciate GI input, 10/01 colonoscopy showed nonbleeding internal hemorrhoids, diverticulosis, stricture in the sigmoid colon
Barium RF enema 10/02 moderately extensive diverticuli in sigmoid associated with luminal narrowing but no focal stricture. Large amt retained feces in colon limiting evaluation
F/u on biopsies to assess for microscopic colitis. Resume miralax
Follow-up with her usual oncologist in the office
PT rec HH, pt lives in independent facility
# Overflow diarrhea from fecal impaction
Appreciate GI input, abdominal x-ray shows significant stool burden
Status post enema, continue laxatives as per GI
S/p Questran and Imodium
#Hyponatremia
TSH/a.m. cortisol normal
Started on sodium chloride tablets 0.5 mg twice a day by nephrology 09/30
Continue fluid restriction, trend sodium
#Anemia of chronic disease
Iron studies, B12/folic acid normal
#Anion gap metabolic acidosis
#Hypokalemia
Appreciate nephrology input
Due to diarrhea, resolved s/p sodium bicarb IV fluids
Hypokalemia resolved
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
On immunotherapy. Outpatient follow-up
#Dysphagia
Cleared for regular diet with thin liquids by SPL, she has been tolerating
#Gastroesophageal reflux disease
Continue PPI
#Hoarseness
Appreciate ENT input, recommend outpatient laryngoscopy
ENT suspects reflux
#Hypoalbuminemia
Protein supplements, nutrition consulted
# Paroxysmal atrial fibrillation
Currently in normal sinus rhythm
#Type 2 diabetes
A1C 6.5
Carb controlled diet, SSI
DVT prophylaxis�subcu Lovenox
DNR
Updated daughter on phone 10/01
Total time spent to see the patient on the floor, examine the patient, review data and lab results, discuss treatment plan with patient, nursing staff around 38 minutes.
Physical Exam
General: No acute distress
HEENT: Normocephalic, Atraumatic, EOMI, MMM
Left eye enucleation noted
Hoarse voice
Respiratory: Clear to Auscultation bilaterally
Cardiac: Normal S1/S2, Regular Rate and Rhythm
GI: Soft, Nontender, Nondistended, Normal Bowel Sounds
Extremities: No Clubbing, Cyanosis
Bilateral lower extremity edema noted
Neuro: Nonfocal/Grossly Intact
Anticipated Discharge: Within 24 hours
Subjective/Interval History
-
Date of Service: October 03, 2023
No abd pain, no vomiting. No fever.
Objective Data
-
Labs:
Laboratory Results
10/03/23
07:57
WBC Pending
Hgb Pending
Hct Pending
Plt Count Pending
Sodium Pending
Potassium Pending
Chloride Pending
Carbon Dioxide Pending
BUN Pending
Creatinine Pending
Glucose Pending
Calcium Pending
Total Bilirubin Pending
AST Pending
ALT Pending
Alkaline Phosphatase Pending
Vital Signs:
Vital Signs
Temp Pulse Resp BP Pulse Ox
99.2 F 106 18 136/77 96
10/02/23 23:25 10/02/23 23:25 10/02/23 23:25 10/02/23 23:25 10/02/23 23:25
I&O
10/02/23 10/03/2324
06:59 06:59 06:59
Intake Total 3360 / 3360 540 / 540
Balance 3360 / 3360 540 / 540
[2023-10-03 09:16] LABS: Hematocrit 29.5 % (37.0-47.0); Hemoglobin 10.2 g/dL (12.0-16.0); Mean Corp Hgb Conc. 34.6 g/dL (33.0-37.0); Mean Corpuscular Volume 86.8 fL (81.0-99.0); Mean Platelet Volume 10.8 fL (7.4-10.4); Platelet Count 175 10^3/uL (130-400); Red Cell Dist. Width 14.4 % (11.5-14.5); White Blood Cell Count 5.8 10^3/uL (4.8-10.8)
[2023-10-03 09:42] LABS: ALT (SGPT) 73 U/L (0-35); AST (SGOT) 33 U/L (14-36); Albumin 2.5 g/dl (3.5-5.0); Alkaline Phosphatase 48 U/L (38-126); Blood Urea Nitrogen 16 mg/dl (7-17); Calcium 7.9 mg/dl (8.4-10.2); Carbon Dioxide 26 mmol/L (22-30); Chloride 99 mmol/L (98-107); Direct Bilirubin 0.1 mg/dl (0.0-0.4); Estimated Creatinine Clearance 35 ml/min; Glucose 218 mg/dl (70-99); Magnesium 1.8 mg/dl (1.6-2.3); Phosphorus 2.8 mg/dl (2.5-4.5); Potassium 3.9 mmol/L (3.5-5.1); Sodium 130 mmol/L (135-145); Total Bilirubin 0.5 mg/dl (0.2-1.3); Total Protein 4.6 g/dl (6.3-8.2); eGFR 54.19
[2023-10-03] MEDS: NEUTRA-PHOS POWDER PACKET 250 MG PO ×4 (11:18→21:09)
[2023-10-03 11:58] LABS: Glucose - Point of Care 158 mg/dl (70-99)
--- NOTE | 2023-10-03 12:33 | CM ---
Addendum entered by Radha Olvera 10/03/23 13:00:
[employer] authorization faxed to [phone], reference number [id number].
Original Note:
TC from Lynn at [address] she is there until 4:30 pm.
Insurance auth being initiated.
Will let Lynn know if we hear anything about d/c or authorization by the end of the day.
[2023-10-03] MEDS: NOVOLOG FLEXPEN-MODERATE RESISTANCE 1 UNITS SC (13:28)
--- NOTE | 2023-10-03 14:06 | W.PN.GI.CBS2 ---
Today's Communication / Plan
-
Still has retained stool on BE
Will start miralax daily and if diarrhea recurs, we can stop
Benign exam
Assessment / Plan
-
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 She has been on therapy Niolumab/Ipilimumab with [facility]( Dr. Santana). She did well
with first infusion then with second infusion had diarrhea. 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 She as also note with orthostasis and CITLALLI with acidosis and electrolyte imbalance during
admission. Pt was not seen by GI and flex or colonoscopy not completed but did have palliative care consult. Treated with steroids, imodium, cholestyramine. She had improvement then had recurrent diarrhea and SNF and missed appt last week with
oncology due to recurrent symptoms. She now presents with recurrent diarrhea with profound hypokalemia and metabolic acidosis and asked to see.
09/08/23- CT A/p([facility]) -2.9 cm liver lesion mildly enlarged compared to recent MRI, 9 mm right renal pole cortical lesion indeterminate. Pneumobilia with similar pancreatic and biliary ductal dilation trace pericardial and trace right pleural
effusion
per family no know hx colonoscopy in past
09/29/23 Abd X ray
1. Large amount of fecal material in the rectum suggesting fecal impaction and possibly stercoral colitis.
2. No radiographic evidence for small bowel obstruction.
3. Osteoporosis.
4. Severe multilevel lumbar discogenic degenerative disease.
09/30/23 abd X ray
Moderate volume fecal material in the rectum, decreased from study of preceding day.
10/02/23 COLON- Benign severe stenosis sigmoid colon unable to traverse even with endoscope. Bx taken. Diverticulosis. hemorrhoids
10/02/23 BE- Moderatedly extensive diverticuli in sigmoid associated with luminal narrowing but no focal stricture.. Large amt retained feces in colon limiting evaluation
Impression:
-diarrhea, possibly overflow diarrhea due to sigmoid stricture. Retained stool seen on xray and BE
-abd film with concern for fecal impaction and stercoral colitis
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
-hx melanoma of eye with resection and recurrent CA on immunotherapy
-dysphagia
-hoarseness s/p ENT eval -- ? GERD related
-hypokalemia on admission
-hypocalcemia on admission
-hyponatremia
-metabolic acidosis
-recent type 2 PA while at [facility]
other medical problems:
-Diabetes
-HTN
-afib
-TIA
-hx prior ERCP with Dr. Waite for choledocholithiasis 2021
-alyssa
Subjective
Subjective
Date of Service: October 03, 2023
Passed BM spontaneously when urinating this pm. Loose, but not watery
Objective
Data Reviewed
Laboratory Data:
Laboratory Results
10/03/23 07:57
10/03/23 07:57
Laboratory Results
Phosphorus 2.8 mg/dl (2.5-4.5) 10/03/23 07:57
Magnesium 1.8 mg/dl (1.6-2.3) 10/03/23 07:57
Total Bilirubin 0.5 mg/dl (0.2-1.3) 10/03/23 07:57
AST 33 U/L (14-36) 10/03/23 07:57
ALT 73 U/L (0-35) H 10/03/23 07:57
Alkaline Phosphatase 48 U/L (38-126) 10/03/23 07:57
Vital Signs and I&O:
Vital Signs
Temp Pulse Resp BP Pulse Ox
98.3 F 87 20 133/67 97
10/03/23 08:03 10/03/23 08:03 10/03/23 08:03 10/03/23 08:03 10/03/23 08:03
I&O
10/02/23 10/03/23 10/04/23
06:59 06:59 06:59
Intake Total 3360 / 3360 540 / 540
Balance 3360 / 3360 540 / 540
Physical Exam
Physical Exam
GI: Soft and Non Tender
--- NOTE | 2023-10-03 15:24 | W.PN.NEPH.PH ---
Today's Communication / Plan
-
- continue salt tabs
Assessment/Plan
-
Assessment
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
Persistent diarrhea
Hypokalemia
hypocalcemia
Metabolic acidosis
Diabetes mellitus type 2
Atrial fibrillation
Hypoalbuminemia
Edema
Plan
continue low dose NaCl
FR still
would prefer not to use lasix
follow BMP
-
-
Date of Service: October 03, 2023
CC / HPI / ROS
-
Chief Complaint:
acidosis, hypocalcemia, hypokalemia
History of Present Illness:
s/p aggressive repletion of K and Ca --> now normalized
acidosis normalized
BP stable
now Na low 130
Review of Systems:
no CP/SOB
Labs
-
Labs:
WBC 5.8 10^3/uL (4.8-10.8) 10/03/23 07:57
RBC 3.40 10^6/uL (4.20-5.40) L 10/03/23 07:57
Hgb 10.2 g/dL (12.0-16.0) L 10/03/23 07:57
Hct 29.5 % (37.0-47.0) L 10/03/23 07:57
Plt Count 175 10^3/uL (130-400) D 10/03/23 07:57
Sodium 130 mmol/L (135-145) L 10/03/23 07:57
Potassium 3.9 mmol/L (3.5-5.1) 10/03/23 07:57
Chloride 99 mmol/L (98-107) 10/03/23 07:57
Carbon Dioxide 26 mmol/L (22-30) 10/03/23 07:57
BUN 16 mg/dl (7-17) 10/03/23 07:57
Creatinine 1.0 mg/dL (0.6-1.0) 10/03/23 07:57
eGFR 54.19 10/03/23 07:57
Glucose 218 mg/dl (70-99) H 10/03/23 07:57
Calcium 7.9 mg/dl (8.4-10.2) L 10/03/23 07:57
Phosphorus 2.8 mg/dl (2.5-4.5) 10/03/23 07:57
Albumin 2.5 g/dl (3.5-5.0) L 10/03/23 07:57
Physical Exam
-
Vital Signs:
Vital Signs
Temp Pulse Resp BP Pulse Ox
98.3 F 87 20 133/67 97
10/03/23 08:03 10/03/23 08:03 10/03/23 08:03 10/03/23 08:03 10/03/23 08:03
Cardiovascular:: Regular rate and rhythm
Respiratory:: Bilateral: CTA
Lung Excursion:: Normal
Abdomen:: Nontender and Soft
Bowel Sounds:: Normal
Extremity Edema:: +1: Bilateral:
Arnett Catheter: No
[2023-10-03 16:05] LABS: Transferrin 120 mg/dL (200-360)
[2023-10-03 16:39] LABS: Glucose - Point of Care 238 mg/dl (70-99)
[2023-10-03] MEDS: MIRALAX PO (16:47)
[2023-10-03] MEDS: NOVOLOG FLEXPEN-MODERATE RESISTANCE 3 UNITS SC (16:48)
[2023-10-03] MEDS: LOVENOX 40 MG SC (18:22)
[2023-10-03] MEDS: MAGNESIUM OXIDE 1000 MG PO (19:53)
[2023-10-03 22:12] LABS: Glucose - Point of Care 218 mg/dl (70-99)
[2023-10-03 23:13] VITALS: BP 135/70
[2023-10-04 06:00] VITALS: BMI 29.6
[2023-10-04 07:42] VITALS: BP 123/70
[2023-10-04 07:51] LABS: Glucose - Point of Care 209 mg/dl (70-99)
[2023-10-04] MEDS: MAGNESIUM OXIDE 1000 MG PO (08:15)
[2023-10-04] MEDS: NOVOLOG FLEXPEN-MODERATE RESISTANCE 3 UNITS SC ×2 (08:15→12:11)
[2023-10-04] MEDS: MIRALAX 17 GRAMS PO (08:16)
[2023-10-04] MEDS: CALCIUM CARBONATE ORAL SUSP 500 MG TUBE (08:16)
[2023-10-04] MEDS: DELTASONE 10 MG PO (08:16)
[2023-10-04] MEDS: PROTONIX IV 40 MG IV (08:16)
[2023-10-04] MEDS: NSS (PRESERVATIVE FREE) 10 ML IV (08:16)
[2023-10-04] MEDS: SODIUM CHLORIDE 0.5 GRAM PO (08:17)
[2023-10-04] MEDS: NEUTRA-PHOS POWDER PACKET 250 MG PO ×2 (08:17→12:17)
--- NOTE | 2023-10-04 08:39 | W.PN.HOSP.TC ---
Today's Communication/Plan
-
Discharge to short-term rehab when authorization obtained
Assessment / Plan
Assessment / Plan
HPI: 88-year-old female with history of melanoma currently getting immunological agent, developed persistent diarrhea with The second agent, she was in [facility], presented to the hospital for persistent diarrhea, workup showed
hyperchloremic metabolic acidosis, dehydration and hypokalemia.
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
Patient recently treated for immunotherapy related colitis at [facility]
IV steroids changed back to oral steroids
Appreciate GI input, 10/01 colonoscopy showed nonbleeding internal hemorrhoids, diverticulosis, stricture in the sigmoid colon
Barium RF enema 10/02 moderately extensive diverticuli in sigmoid associated with luminal narrowing but no focal stricture. Large amt retained feces in colon limiting evaluation
F/u on biopsies to assess for microscopic colitis. Resumed miralax
Follow-up with her usual oncologist in the office
PT rec HH, pt lives in independent facility
# Overflow diarrhea from fecal impaction
Appreciate GI input, abdominal x-ray shows significant stool burden
Status post enema, continue laxatives as per GI
S/p Questran and Imodium
#Hyponatremia
TSH/a.m. cortisol normal
Started on sodium chloride tablets 0.5 mg twice a day by nephrology 09/30
Continue fluid restriction, trend sodium
#Anemia of chronic disease
Iron studies, B12/folic acid normal
#Anion gap metabolic acidosis
#Hypokalemia
Appreciate nephrology input
Due to diarrhea, resolved s/p sodium bicarb IV fluids
Hypokalemia resolved
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
On immunotherapy. Outpatient follow-up
#Dysphagia
Cleared for regular diet with thin liquids by SPL, she has been tolerating
#Gastroesophageal reflux disease
Continue PPI
#Hoarseness
Appreciate ENT input, recommend outpatient laryngoscopy
ENT suspects reflux
#Hypoalbuminemia
Protein supplements, nutrition consulted
# Paroxysmal atrial fibrillation
Currently in normal sinus rhythm
#Type 2 diabetes
A1C 6.5. Start Lantus 10 units daily
Carb controlled diet, SSI
DVT prophylaxis�subcu Lovenox
DNR
Updated daughter on phone 10/03
Total time spent to see the patient on the floor, examine the patient, review data and lab results, discuss treatment plan with patient, nursing staff around 50 minutes.
Physical Exam
General: No acute distress
HEENT: Normocephalic, Atraumatic, EOMI, MMM
Left eye enucleation noted
Hoarse voice
Respiratory: Clear to Auscultation bilaterally
Cardiac: Normal S1/S2, Regular Rate and Rhythm
GI: Soft, Nontender, Nondistended, Normal Bowel Sounds
Extremities: No Clubbing, Cyanosis
Bilateral lower extremity edema noted
Neuro: Nonfocal/Grossly Intact
Anticipated Discharge: Today
Subjective/Interval History
-
Date of Service: October 04, 2023
Patient reports having multiple episodes of loose stools. She is tolerating her diet. No fever, no vomiting.
Objective Data
-
Labs:
Laboratory Results
10/04/23
08:05
Sodium Pending
Potassium Pending
Chloride Pending
Carbon Dioxide Pending
BUN Pending
Creatinine Pending
Glucose Pending
Calcium Pending
Vital Signs:
Vital Signs
Temp Pulse Resp BP Pulse Ox
97.8 F 83 18 123/70 96
10/04/23 07:42 10/04/23 07:42 10/04/23 07:42 10/04/23 07:42 10/04/23 07:42
I&O
10/03/23 10/04/23 10/05/23
06:59 06:59 06:59
Intake Total 540 / 540 300 / 300
Balance 540 / 540 300 / 300
[2023-10-04 09:53] LABS: Blood Urea Nitrogen 20 mg/dl (7-17); Calcium 7.9 mg/dl (8.4-10.2); Carbon Dioxide 26 mmol/L (22-30); Chloride 99 mmol/L (98-107); Estimated Creatinine Clearance 32 ml/min; Glucose 184 mg/dl (70-99); Magnesium 1.6 mg/dl (1.6-2.3); Phosphorus 2.8 mg/dl (2.5-4.5); Potassium 3.9 mmol/L (3.5-5.1); Sodium 131 mmol/L (135-145); eGFR 48.33
--- NOTE | 2023-10-04 10:16 | W.PN.GI.CBS2 ---
Today's Communication / Plan
-
Doing well with current bowel regimen
Continue miralax daily. May need to stop when getting her check point inhibitor for melanoma rx
Await path from colon bx. BE showed luminal narrowing, but no mass or stricture
Will sign off at this point. Please call back if active GI issues arise
Assessment / Plan
-
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 She has been on therapy Niolumab/Ipilimumab with [facility]( Dr. Santana). She did well
with first infusion then with second infusion had diarrhea. 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 She as also note with orthostasis and CITLALLI with acidosis and electrolyte imbalance during
admission. Pt was not seen by GI and flex or colonoscopy not completed but did have palliative care consult. Treated with steroids, imodium, cholestyramine. She had improvement then had recurrent diarrhea and SNF and missed appt last week with
oncology due to recurrent symptoms. She now presents with recurrent diarrhea with profound hypokalemia and metabolic acidosis and asked to see.
09/08/23- CT A/p([facility]) -2.9 cm liver lesion mildly enlarged compared to recent MRI, 9 mm right renal pole cortical lesion indeterminate. Pneumobilia with similar pancreatic and biliary ductal dilation trace pericardial and trace right pleural
effusion
per family no know hx colonoscopy in past
09/29/23 Abd X ray
1. Large amount of fecal material in the rectum suggesting fecal impaction and possibly stercoral colitis.
2. No radiographic evidence for small bowel obstruction.
3. Osteoporosis.
4. Severe multilevel lumbar discogenic degenerative disease.
09/30/23 abd X ray
Moderate volume fecal material in the rectum, decreased from study of preceding day.
10/02/23 COLON- Benign severe stenosis sigmoid colon unable to traverse even with endoscope. Bx taken. Diverticulosis. hemorrhoids
10/02/23 BE- Moderatedly extensive diverticuli in sigmoid associated with luminal narrowing but no focal stricture.. Large amt retained feces in colon limiting evaluation
Impression:
-diarrhea, possibly overflow diarrhea due to sigmoid stricture. Retained stool seen on xray and BE
-abd film with concern for fecal impaction and stercoral colitis
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
-hx melanoma of eye with resection and recurrent CA on immunotherapy
-dysphagia
-hoarseness s/p ENT eval -- ? GERD related
-hypokalemia on admission
-hypocalcemia on admission
-hyponatremia
-metabolic acidosis
-recent type 2 FL while at [facility]
other medical problems:
-Diabetes
-HTN
-afib
-TIA
-hx prior ERCP with Dr. Waite for choledocholithiasis 2021
-alyssa
Subjective
Subjective
Date of Service: October 04, 2023
Passing good BMs. Denies abd pain
Objective
Data Reviewed
Laboratory Data:
Laboratory Results
10/03/23 07:57
10/04/23 08:05
Laboratory Results
Phosphorus 2.8 mg/dl (2.5-4.5) 10/04/23 08:05
Magnesium 1.6 mg/dl (1.6-2.3) 10/04/23 08:05
Total Bilirubin 0.5 mg/dl (0.2-1.3) 10/03/23 07:57
AST 33 U/L (14-36) 10/03/23 07:57
ALT 73 U/L (0-35) H 10/03/23 07:57
Alkaline Phosphatase 48 U/L (38-126) 10/03/23 07:57
Vital Signs and I&O:
Vital Signs
Temp Pulse Resp BP Pulse Ox
97.8 F 83 18 123/70 96
10/04/23 07:42 10/04/23 07:42 10/04/23 07:42 10/04/23 07:42 10/04/23 07:42
I&O
10/03/23 10/04/23 10/05/23
06:59 06:59 06:59
Intake Total 540 / 540 300 / 300
Balance 540 / 540 300 / 300
Physical Exam
Physical Exam
GI: Soft, Non Distended and Non Tender
--- NOTE | 2023-10-04 10:44 | W.PN.NEPH.PH ---
Today's Communication / Plan
-
- sign off
Assessment/Plan
-
Assessment
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
Persistent diarrhea
Hypokalemia
hypocalcemia
Metabolic acidosis
Diabetes mellitus type 2
Atrial fibrillation
Hypoalbuminemia
Edema
Plan
Sodium stable
all other electrolytes stable as well
continue low dose NaCl, likely will need to be discharged on this
FR still
would prefer not to use lasix in the setting of diarrhea
follow BMP
-
-
Date of Service: October 04, 2023
CC / HPI / ROS
-
Chief Complaint:
acidosis, hypocalcemia, hypokalemia
History of Present Illness:
s/p aggressive repletion of K and Ca --> now normalized
acidosis normalized
BP stable
now Na low 131
Review of Systems:
no CP/SOB
Labs
-
Labs:
WBC 5.8 10^3/uL (4.8-10.8) 10/03/23 07:57
RBC 3.40 10^6/uL (4.20-5.40) L 10/03/23 07:57
Hgb 10.2 g/dL (12.0-16.0) L 10/03/23 07:57
Hct 29.5 % (37.0-47.0) L 10/03/23 07:57
Plt Count 175 10^3/uL (130-400) D 10/03/23 07:57
Sodium 131 mmol/L (135-145) L 10/04/23 08:05
Potassium 3.9 mmol/L (3.5-5.1) 10/04/23 08:05
Chloride 99 mmol/L (98-107) 10/04/23 08:05
Carbon Dioxide 26 mmol/L (22-30) 10/04/23 08:05
BUN 20 mg/dl (7-17) H 10/04/23 08:05
Creatinine 1.1 mg/dL (0.6-1.0) H 10/04/23 08:05
eGFR 48.33 10/04/23 08:05
Glucose 184 mg/dl (70-99) H 10/04/23 08:05
Calcium 7.9 mg/dl (8.4-10.2) L 10/04/23 08:05
Phosphorus 2.8 mg/dl (2.5-4.5) 10/04/23 08:05
Albumin 2.5 g/dl (3.5-5.0) L 10/03/23 07:57
Physical Exam
-
Vital Signs:
Vital Signs
Temp Pulse Resp BP Pulse Ox
97.8 F 83 18 123/70 96
10/04/23 07:42 10/04/23 07:42 10/04/23 07:42 10/04/23 07:42 10/04/23 07:42
Cardiovascular:: Regular rate and rhythm
Respiratory:: Bilateral: CTA
Lung Excursion:: Normal
Abdomen:: Nontender and Soft
Bowel Sounds:: Normal
Extremity Edema:: None: Bilateral:
Arnett Catheter: No
[2023-10-04 12:06] LABS: Glucose - Point of Care 248 mg/dl (70-99)
[2023-10-04] MEDS: MAGNESIUM SULFATE 100 IV (13:58)
[2023-10-04] MEDS: LANTUS 0.1 UNITS SC (14:19)
--- NOTE | 2023-10-04 14:26 | CM ---
Addendum entered by Kenya Chamberlain 10/04/23 14:51:
professional development manager spoke with Jessica Martinez websphere administrator at [facility] and they have agreed to accept patient today, despite not have Auth for skilled placement. Daughter to transport 4:30pm pick pack worker.
[place]
Report [phone]

Original Note:
Chart reviewed and Auth is still pending, window caser reached out to [facility] [phone] patient's insurance and they are closed today.
Plan; skilled when auth received.
--- NOTE | 2023-10-04 14:55 | W.DCSUMMARY ---
Discharge Summary
Discharge Data
Date of Admission: 09/28/23
Date of Discharge: 10/04/23
-
Pending Results: Yes
Hospital Course
Discharge diagnosis:
Overflow diarrhea from fecal impaction
Sigmoid colon narrowing
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
Hyponatremia
Hypokalemia
Hypophosphatemia
Hypomagnesemia
Anion gap metabolic acidosis from diarrhea
Anemia of chronic disease
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
Dysphagia
Gastroesophageal reflux disease
Hypoalbuminemia
Diabetes
Paroxysmal atrial fibrillation
Consults: GI, nephrology, ENT
09/08/23- CT A/p([place]) -2.9 cm liver lesion mildly enlarged compared to recent MRI, 9 mm right renal pole cortical lesion indeterminate. Pneumobilia with similar pancreatic and biliary ductal dilation trace pericardial and trace right pleural
effusion
09/29/23 Abd X ray
1. Large amount of fecal material in the rectum suggesting fecal impaction and possibly stercoral colitis.
2. No radiographic evidence for small bowel obstruction.
3. Osteoporosis.
4. Severe multilevel lumbar discogenic degenerative disease.
09/30/23 abd X ray
Moderate volume fecal material in the rectum, decreased from study of preceding day.
10/02/23 Colonoscopy - Benign severe stenosis sigmoid colon unable to traverse even with endoscope. Bx taken. Diverticulosis. hemorrhoids
10/02/23 Barium enema- Moderately extensive diverticuli in sigmoid associated with luminal narrowing but no focal stricture. Large amount retained feces in colon limiting evaluation
Hospital course:
88-year-old female with a past medical history of atrial fibrillation not on anticoagulation, diabetes, hypertension, hyperlipidemia, and ocular melanoma status postresection, now with recurrence and metastases to the liver was admitted for diffuse
diarrhea, causing severe hypokalemia, hypophosphatemia, hypomagnesemia, and non-anion gap metabolic acidosis.
Patient was seen in conjunction with nephrology, her electrolytes were repleted. She was treated with IV sodium bicarb, and her acidosis resolved. She also had hyponatremia, this was treated with a fluid restriction. Nephrology started her on
sodium chloride 0.5 mg twice a day.
Patient was seen in conjunction with GI. Abdominal x-ray shows severe constipation. GI suspects she has overflow diarrhea from fecal impaction. She received multiple enemas and laxatives. Her diarrhea did improve, but then worsened.
Patient had colonoscopy done on 10/02/2023, showing residual stool and sigmoid colon narrowing. She had barium enema done on 10/02/2023, ruling out mass/stricture, it does show sigmoid colon narrowing with retained feces. GI states that her stools
need to be loose/soft in order to pass through this narrowing, and recommends MiraLAX once a day. MiraLAX may need to be held when she resumes her immunotherapy.
Patient initially had hoarse voice, and was seen in conjunction with ENT. ENT suspects that she has reflux. Her hoarse voice improved during her hospitalization and treatment with Protonix. She can follow-up with ENT as needed.
Patient was seen by physical therapy. She is medically stable for discharge to short-term rehab. She is discharged on magnesium and phosphorus supplements. She needs repeat BMP, Mg, Phos levels on 10/08/2023. She needs to follow-up with her
primary care doctor in 1 week, as well as her usual oncologist as soon as possible.
Disposition: Short-term rehab
Discharge planning: Required 50 minutes
Discharge Plan
-
Patient Disposition: Fpc/SNF
Discharge Diagnosis/Procedures: Overflow diarrhea from fecal impaction, sigmoid colon narrowing, history of immunotherapy related colitis, melanoma treated with immunotherapy, hyponatremia, hypokalemia, hypomagnesemia, hypophosphatemia,
hypoalbuminemia
Condition: Fair
Diet: Low Residue and Diabetic, Carb Controlled
Activity: As tolerated
Blood Work: BMP, Mg, Phos on 10/08/23
Activity Restrictions/Additional Instructions:
You have narrowing of your sigmoid colon. Continue to take MiraLAX daily. Your stools need to be loose and soft in order for it to pass through this colon narrowing. You may have to stop your MiraLAX when you resume your immunotherapy.
Follow-up with your primary care doctor in 1 week, and your usual oncologist as soon as possible.
Referrals:
Ana Laura Jefferson MD [Family Provider] - in one week
Prescriptions:
New
magnesium oxide 500 mg magnesium Tablet
1,000 mg PO BID Qty: 0 0RF
Insulin Glargine Lantus [Lantus] 10 UNITS
Subcutaneous Insulin Syringe [Syringe-Insulin] 0 UNIT
As Directed mls/hr SC DAILY
Ordered By: Dakotah Mosley MD
Last Taken: 10/04/23 14:19 0.1 mls
polyethylene glycol 3350 [HealthyLax] 17 gram Powder In Packet
17 g PO DAILY Qty: 30 0RF
potassium, sodium phosphates [Phosphorous Supplement] 280-160-250 mg Powder In Packet
1 packet PO BID Qty: 100 0RF
sodium chloride 1,000 mg Tablet,Soluble
500 mg PO BID Qty: 60 0RF
Continued
atorvastatin [Lipitor] 40 mg Tablet
40 mg PO HS
therapeutic multivitamin Tablet
1 tab PO DAILY
omeprazole 20 mg Tablet,Delayed Release (Dr/Ec)
20 mg PO DAILY
acetaminophen [Tylenol] 325 mg Tablet
650 mg PO BID
acetaminophen [Tylenol] 325 mg Tablet
650 mg PO Q4HPRN PRN (Reason: mild pain)
calcium carbonate [Tums] 200 mg calcium (500 mg) Tablet,Chewable
200 mg PO TIDPRN PRN (Reason: gerd)
insulin lispro [Humalog KwikPen Insulin] 100 unit/mL Insulin Pen
14 sliding scale dose SC AC
Rx Instructions:
150-200=2units, 201-250=4units
Changed
prednisone 10 mg Tablet
10 mg PO DAILY Qty: 0 0RF
Rx Instructions:
starting 09/27/23 60mg daily for 7 days then on 10/04/23 50mg daily for 7 days then on 10/11/23 20mg daily for 7 days
Discontinued
amlodipine [Norvasc] 2.5 mg Tablet
2.5 mg PO DAILY
Benefiber s/f (wheat dextrin) 3 gram/6 gram Powder In Packet
1 ea PO DAILY
Rx Instructions:
give 1 tbsp
potassium chloride 20 mEq Tablet Extended Release
20 meq PO DAILY
loperamide 2 mg Capsule
2 mg PO Q4HPRN PRN (Reason: diarrhea)
loperamide 2 mg Tablet
2 mg PO Q6H
sulfamethoxazole-trimethoprim [Bactrim DS] 800-160 mg Tablet
1 tab PO MOWEFR
Rx Instructions:
for 21 starting 09/19/23
cholestyramine (with sugar) 4 gram Powder In Packet
4 g PO QID
Discharge Orders:
Discharge Patient (As Directed); Ordered 10/04/23
Ordered By: Dakotah Mosley
Discharge Date and Time
Print Language: BRAZILIAN
[2023-10-04 15:33] VITALS: BP 121/70
--- NOTE | 2023-10-07 09:02 | CM ---
VM from [facility] re insurance authorization.
TC to [facility]-
[employer] auth for skilled rehab at [facility]
Auth # [id number]
Approved skilled rehab
Start date 10/04/23, LCD/NRD 10/08/23
Updates to [phone]- ask for Debo Mccormick
left VM fot [facility] at [facility] [phone] x [phone]
== END 2023-10-04 16:30 | DRG 393 ==
LOC: 4 WEST ACU 18:38
PROVIDERS: Internal Medicine Gastroenterology; ADMITTING PHYSICIAN Internal Medicine; ATTENDING PHYSICIAN Family Medicine; CONSULT PHYSICIAN Internal Medicine; CONSULT PHYSICIAN Otolaryngology; CONSULT PHYSICIAN Specialist; EMERGENCY PHYSICIAN Emergency Medicine; FAMILY PHYSICIAN Family Medicine
PROC: 0DBN8ZX Excision of Sigmoid Colon, Via Natural or Artificial Opening Endoscopic, Diagnostic (ICD-10-PCS; 2023-09-28)
PROC: 0DBP8ZX Excision of Rectum, Via Natural or Artificial Opening Endoscopic, Diagnostic (ICD-10-PCS; 2023-09-28)
DX: K52.1 Toxic gastroenteritis and colitis (principal); E43 Unspecified severe protein-calorie malnutrition; C78.7 Secondary malignant neoplasm of liver and intrahepatic bile duct; E87.1 Hypo-osmolality and hyponatremia; E87.20 Acidosis, unspecified; K56.699 Other intestinal obstruction unspecified as to partial versus complete obstruction; T50.Z95A Adverse effect of other vaccines and biological substances, initial encounter; E83.51 Hypocalcemia; E87.6 Hypokalemia; Z66 Do not resuscitate; C69.92 Malignant neoplasm of unspecified site of left eye; E78.00 Pure hypercholesterolemia, unspecified; I10 Essential (primary) hypertension; E86.0 Dehydration; E87.8 Other disorders of electrolyte and fluid balance, not elsewhere classified; E11.9 Type 2 diabetes mellitus without complications; I48.0 Paroxysmal atrial fibrillation; R13.10 Dysphagia, unspecified; R49.0 Dysphonia; K21.9 Gastro-esophageal reflux disease without esophagitis; E83.42 Hypomagnesemia; K56.41 Fecal impaction; Z11.52 Encounter for screening for COVID-19; E83.39 Other disorders of phosphorus metabolism; D63.0 Anemia in neoplastic disease; K64.8 Other hemorrhoids; K57.30 Diverticulosis of large intestine without perforation or abscess without bleeding; M81.0 Age-related osteoporosis without current pathological fracture; Z79.4 Long term (current) use of insulin; Z79.52 Long term (current) use of systemic steroids; Z86.73 Personal history of transient ischemic attack (TIA), and cerebral infarction without residual deficits; W18.39XA Other fall on same level, initial encounter; Z68.29 Body mass index [BMI] 29.0-29.9, adult
CPT/HCPCS: 88305; 70360; 74018; 74270; 80048; 80053; 81003; 81015; 82248; 82533; 82570; 82607; 82728; 82746; 82805; 82962; 83036; 83540; 83605; 83735; 83930; 83935; 84100; 84300; 84443; 84466; 85025; 85027; 86140; 87045; 87046; 87070; 87077; 87324; 87328; 87329; 87427; 87449; 87811; 88342; 89055; 92526; 92610; 93005; 96374; 97116; 97162; 97166; 97167; 97530; 97535; 99291

== ENCOUNTER 2023-11-20 16:11 | Inpatient (IN) | payer OTHER, SELFPAY ==
[2023-11-20] VITALS (8 sets, daily range): BP systolic 106–157; BP diastolic 56–86; BMI 33.3; BMI 31.8
--- NOTE | 2023-11-20 14:22 | ED.GENMED ---
History of Present Illness
General
Chief Complaint: Swelling
Source: patient
Exam Limitations: none
Time Seen by Provider: 11/20/23 14:06
Nursing documentation reviewed up to this point in time: agreed with
History of Present Illness
History of Present Illness:
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
exertion over the past 1 week, by taking Lasix. Denies fever or chills. Denies chest pain. Denies nausea, vomiting, or diarrhea. Per daughter, patient who initially had lost weight during immunotherapy, has now gained approximate 20 pounds over
the past 10 days.
Past History
Past History
ED Past Medical History: HTN, Hypercholesterolemia and Other (Metastatic melanoma, hypertension, hyperlipidemia)
Review of Systems
Review of Systems
Allergies reviewed?: Yes
All Other Systems: ROS reviewed and negative except as documented in HPI and ROS
Constitutional: Reports no symptoms
EENT: Reports no symptoms
Respiratory: Reports trouble breathing; Denies cough
Cardiac: Reports no symptoms
ABD/GI: Reports no symptoms
Musculoskeletal: Reports edema
Skin: Reports no symptoms
Neurological: Reports no symptoms
Phy Exam
Physical Exam
Physical Exam:
Physical Exam
General: mild distress, not acutely ill. afebrile. overweight.
Head: nc/at. eomi
Neck: supple. no meningeal signs.
Heart: s1/s2 regular rate and rhythm, no murmur. equal radial pulses.
Lungs: no acute respiratory distress. diminished breath sounds bilaterally
Abdomen: normal bowel sounds. not tender.
Neuro: alert and oriented. no focal neurological deficits
Skin: no rash
Psychiatric: well kept. interactive and cooperative
Extremities: LE/UE b/l edema. no calf tenderness
Scores
Heart Failure Risk
Heart Failure Risk Score: Yes
History of Stroke or TIA: No
History of intubation for respiratory distress: No
Heart rate on ED arrival >/= 110: No
SaO2 <90% on arrival on room air: No
HR >/=110 during 3min walk test (or too ill to perform test): No
ECG has acute ischemic changes: No
Urea >/=12mmol/L (BUN 33.6mg/dL): Yes
Serum CO2>/=35mmol/L: No
Troponin I or T elevated to AR Level (0.4mg/dL): No
NT-proBNP >/=5,000ng/L (5,000pg/ml): Yes
HF Risk Score: 2
Admission Status: MEDIUM RISK 9.2% Consider observation or discharge to home with homecare & f/u visit to PCP/[facility], or SNF for treatment
Course
Orders/Labs/Results
Orders:
Orders
11/20/23 14:27
Furosemide [Lasix] 40 mg IV NOW STA
CR Chest - 2 Views Urgent
Comment:
Reason For Exam: sob
11/20/23 14:29
Complete Blood Count/No Diff Urgent
Comprehensive Metabolic Panel Urgent
Magnesium Urgent
NT-proBNP Urgent
11/20/23 Dinner
Cholesterol Lowering
At Your Request: Limited Participation
Cholesterol Lowering: Sodium, 2 Gram
11/20/23 15:47
Admit/Transfer Patient As Directed
Co-Sign Provider:
Level of Care: Inpatient admission
Assign to:: Telemetry
Physician / Group: mason
Diagnosis: chf exacerbation
Reason for Telemetry: Arrhythmia
Date to Stop Telemetry: 11/23/23
Time to Stop Telemetry: 11:00
Reason for Hospitalization: chf exacerbation
Expected length of stay greater than two midnights?: Yes
ELOS- Estimated Length of Stay in days: 2
I certify the patient meets the requirements for IP care: Yes
PRN Pain Medication Management As Directed
May give lesser potent ordered pain med per pt: Yes
preference::
Protocol:: Medication orders for pain may be administered in a
manner that supports deferring to patient preference
when the pt is:
- Requesting an ordered lesser potent pain medication.
Least to most potent pain medications are defined
as: acetaminophen < NSAID < tramadol < opioids
(morphine, oxycodone, hydromorphone).
- Requesting a lesser dose of the same medication IF
ORDERED.
- Requesting a less intrusive route of administration
if both routes are prescribed by the provider (PO <
IV).
11/20/23 15:48
Code Status As Directed
Resuscitation Status: Full Code
11/20/23 17:38
Activity As Directed
Activity Level: As Tolerated
Intake/ Output As Directed
Frequency: q12h
Patient Education As Directed
Type: CHF folder
Comment: give on admission. Document in Interdisciplinary Education record
Sleep Apnea Assessment by RN As Directed
Comment:
Physician Instructions:
Vital Signs As Directed
Frequency: Other
Additional Instructions:: Q12 or per unit guidelines if more frequent.
Weight As Directed
Frequency: Daily
Type of Scale: Standing Scale
Comment: Daily morning weight. If unable to stand, use balanced bed scale.
Weight As Directed
Frequency: Once
Type of Scale: Standing Scale
Comment: Upon Admission. If unable to stand, use balanced bed scale.
Pulse Ox/cont/shift [RESP] Routine
Quantity: 1
Special Instructions: Daily pulse oximetry at rest. If greater than 92% at rest also obtain pulse oximetry
while ambulating as tolerated.
DX Deep Vein Thrombosis Video Routine
11/20/23 20:00
Heparin 5,000 units SC Q12
11/21/23 07:35
Complete Blood Count/With Diff IN AM
Comprehensive Metabolic Panel IN AM
11/21/23 08:00
Furosemide [Lasix] 40 mg IV DAILY
11/23/23 11:00
DC Protocol for Telemetry ONCE
Abnormal Lab Results
11/20/23
14:29
RBC 3.40 L 10^6/uL
(4.20-5.40)
Hgb 10.1 L g/dL
(12.0-16.0)
Hct 30.9 L %
(37.0-47.0)
MCHC 32.7 L g/dL
(33.0-37.0)
RDW 15.7 H %
(11.5-14.5)
BUN 38 H mg/dl
(7-17)
ALT 38 H U/L
(0-35)
11/20/23 14:29
11/20/23 14:29
Vital Signs
Initial and Last Documented VS:
Initial Vital Signs
Temp Pulse Resp BP Pulse Ox
97.6 F 68 16 112/77 97
11/20/23 13:49 11/20/23 13:49 11/20/23 13:49 11/20/23 13:49 11/20/23 13:49
Last Documented Vital Signs
Temp Pulse Resp BP Pulse Ox
97.8 F 62 20 136/62 98
11/21/23 07:30 11/21/23 08:50 11/21/23 07:30 11/21/23 08:50 11/21/23 07:30
MDM/Problems Addressed
MDM/Problems Addressed:
History and exam concerning for moderate fluid overload, which is likely the culprit for patient's shortness of breath with exertion. Etiology, likely multifactorial. However, in light of patient's worsening symptoms despite oral Lasix as an
outpatient, with symptoms, patient will be admitted for further eval and treatment, including IV diuresis.
*Critical Care Note
Total Time (30-74mins, 75-104mins- exclusive of procedures): Not Applicable
ED Attending Note
-
Portions of this chart may have been created with voice recognition software.� Occasional wrong word or��sound alike� substitutions may have occurred due to the inherent limitations of voice recognition software.
Discharge Plan
Departure
Patient Disposition: Admit
Date of Disposition: 11/20/23
Time of Disposition: 15:24
Admit to: Telemetry
Presentation/result/management discussed w/ accepting MD/DO: Hospitalist
Discharge Problem:
Fluid overload, HARE (dyspnea on exertion)
Interventions
Interventions:
*Risk Screen - Suicide Last Done: 11/20/23 14:20
*General Assessment Last Done: 11/20/23 14:20
*Neglect/Abuse Screening Last Done: 11/20/23 14:20
ED- Fall Risk Assessment Last Done: 11/20/23 14:20
*ED COVID-19 Vaccine History Last Done: 11/20/23 14:20
*Nursing Disposition Last Done: 11/20/23 17:27
ED- Cardiac Assessment Last Done: 11/20/23 14:20
ED- Pulmonary Assessment Last Done: 11/20/23 14:20
ED-Skin Assessment Last Done: 11/20/23 14:20
Discharge Date and Time
Discharge Date/Time: 11/20/23 17:28
[2023-11-20] MEDS: LASIX 40 MG IV (14:31)
[2023-11-20 14:42] LABS: Hematocrit 30.9 % (37.0-47.0); Hemoglobin 10.1 g/dL (12.0-16.0); Mean Corp Hgb Conc. 32.7 g/dL (33.0-37.0); Mean Corpuscular Hgb 29.7 pg (27.0-31.0); Mean Corpuscular Volume 90.9 fL (81.0-99.0); Mean Platelet Volume 10.4 fL (7.4-10.4); Platelet Count 358 10^3/uL (130-400); Red Cell Dist. Width 15.7 % (11.5-14.5); White Blood Cell Count 10.1 10^3/uL (4.8-10.8)
[2023-11-20 14:53] LABS: ALT (SGPT) 38 U/L (0-35); AST (SGOT) 32 U/L (14-36); Albumin 3.8 g/dl (3.5-5.0); Alkaline Phosphatase 69 U/L (38-126); Blood Urea Nitrogen 38 mg/dl (7-17); Calcium 9.2 mg/dl (8.4-10.2); Carbon Dioxide 28 mmol/L (22-30); Chloride 99 mmol/L (98-107); Estimated Creatinine Clearance 37 ml/min; Glucose 78 mg/dl (70-99); Magnesium 2.2 mg/dl (1.6-2.3); Potassium 4.5 mmol/L (3.5-5.1); Sodium 137 mmol/L (135-145); Total Bilirubin 0.6 mg/dl (0.2-1.3); Total Protein 6.4 g/dl (6.3-8.2); eGFR 54.19
[2023-11-20 15:02] LABS: NT-proBNP 6390 pg/ml
--- NOTE | 2023-11-20 15:50 | HPS.HSE ---
Family Physician
-
Family Physician: PT UNKNOWN
Chief Complaint
-
shortness of breath
History of Present Illness
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
dysphagia, GERD, type 2 diabetes, presenting with increased leg swelling and arm swelling and shortness of breath with exertion over the past few weeks patient has gained 20 pounds over the past 10 days. Patient denies fevers or chills, chest pain,
nausea vomiting or diarrhea.
Patient denies smoking or alcohol use.
Medical History
Past Medical History
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
GERD, type 2 diabetes)
Past Surgical History: Reports Other (Left eye resection, cholecystectomy,)
Social History
Tobacco: Non-smoker
Alcohol: None
Drug: None
Family History
Family History: Not pertinent
Allergies / Home Medications
Allergies reflects when Allergies were last updated in [facility].
Home Medications with original date entered in [facility]
Allergy/Medication List:
Allergies
Allergy/AdvReac Type Severity Reaction Status Date / Time
risedronate sodium Allergy Unknown Verified 11/20/23 13:54
sensodyne toothpaste Allergy Unknown Uncoded 11/20/23 13:54
Home Medications
acetaminophen 325 mg tablet (Tylenol) 650 mg PO BID Pain 09/28/23
acetaminophen 325 mg tablet (Tylenol) 650 mg PO Q4HPRN PRN mild pain 09/28/23
atorvastatin 40 mg tablet (Lipitor) 40 mg PO HS High Cholesterol 09/28/23
calcium carbonate (Tums) 200 mg PO TIDPRN PRN gerd 09/28/23
insulin lispro 100 unit/mL subcutaneous pen (Humalog KwikPen (U-100) Insulin) 14 sliding scale dose SC AC Diabetes 09/28/23
omeprazole 20 mg tablet,delayed release 20 mg PO DAILY Gastrointestinal Issue 09/28/23
therapeutic multivitamin 1 tab PO DAILY Supplement 09/28/23
Insulin Glargine Lantus [Lantus] 10 units As Directed mls/hr SC DAILY 10/04/23
magnesium oxide 1,000 mg (2 x 500 mg magnesium) PO BID #0 tabs 10/04/23
polyethylene glycol 3350 17 gram oral powder packet (HealthyLax) 17 g PO DAILY #30 ea 10/04/23
potassium, sodium phosphates 280 mg-160 mg-250 mg oral powder packet (Phosphorous Supplement) 1 packet PO BID #100 ea 10/04/23
prednisone 10 mg tablet 10 mg PO DAILY Anti-Inflammatory #0 tabs 10/04/23
sodium chloride 1,000 mg soluble tablet 500 mg (1/2 x 1,000 mg) PO BID #60 tabs 10/04/23
Review of Systems
-
History Source: Patient
A 12 point ROS was completed and negative except as noted: Yes
Constitutional: Reports No Symptoms
EENT: Reports No Symptoms
Respiratory: Reports See HPI
Cardiac: Reports See HPI
Abdomen/GI: Reports No Symptoms
: Reports No Symptoms
Musculoskeletal: Reports No Symptoms
Skin: Reports No Symptoms
Neurological: Reports No Symptoms
Endocrine: Reports No Symptoms
Hematologic/Lymphatic: Reports No Symptoms
Psych: Reports No Symptoms
Physical Exam
Vital Signs
Vital Signs
Temp Pulse Resp BP Pulse Ox
97.6 F 68 20 122/61 92
11/20/23 13:49 11/20/23 15:00 11/20/23 15:00 11/20/23 15:00 11/20/23 15:00
Physical Exam
General: Well Developed, Well Nourished and No Apparent Distress
HEENT: NormoCephalic, Moist mucous membranes and Atraumatic
Respiratory: Clear
Cardiac: S1/S2, Regular Rhythm and Peripheral Edema; No Murmur or Rub
GI: Soft, Non Tender, Non Distended and Normal Bowel Sounds; No Organomegaly
Rectal: Deferred by Provider
Musculoskeletal: No Clubbing, No Cyanosis and No Edema
Skin: No Rash
Neuro: Nonfocal/grossly intact
Laboratory Results
-
11/20/23 14:29
11/20/23 14:29
Laboratory Results
Total Bilirubin 0.6 mg/dl (0.2-1.3) 11/20/23 14:
AST 32 U/L (14-36) 11/20/23 14:29
ALT 38 U/L (0-35) H 11/20/23 14:29
Alkaline Phosphatase 69 U/L (38-126) 11/20/23 14:29
Data Reviewed
-
Lab Data: Labs Reviewed by me
Old Records: Reviewed
Impression/Plan
-
IMPRESSION:
PLAN:
# Acute CHF exacerbation
-Cardiac BNP 6400
-Chest x-ray pending
-Check I's and O's, daily weights
-40 IV Lasix daily
-Check echo
-Cardiology consulted
Paroxysmal atrial fibrillation
Melanoma status post immunotherapy
History of immunotherapy related colitis
History of fecal impaction
Anemia of chronic disease
-Hemoglobin stable
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
History of hyponatremia
-Continue sodium tablets
History of dysphagia
GERD
-Continue omeprazole
Type 2 diabetes
-Continue Lantus
-Insulin sliding scale
Full code
DVT prophylaxis�heparin
Cardiac diet
--- NOTE | 2023-11-20 18:28 | PTCARENOTE ---
pt presents from ED via stretcher. pt is AAO*3, Vss, room air. denies any pain. pt came with the roe placed in ED. pt is oriented to the room. call bel within the reach. plan of car ongoing.
[2023-11-20 18:29] LABS: Glucose - Point of Care 85 mg/dl (70-99)
[2023-11-20] MEDS: SODIUM CHLORIDE 0.5 GRAM PO (20:05)
[2023-11-20] MEDS: MAGNESIUM OXIDE 1000 MG PO (20:06)
[2023-11-20] MEDS: LOPRESSOR 12.5 MG PO (20:06)
[2023-11-20] MEDS: HEPARIN 5000 UNITS SC (20:07)
[2023-11-20] MEDS: LIPITOR 40 MG PO (20:14)
[2023-11-20 21:29] LABS: Glucose - Point of Care 209 mg/dl (70-99)
[2023-11-20] MEDS: LANTUS 0.2 UNITS SC (22:40)
[2023-11-21] VITALS (8 sets, daily range): BP systolic 122–146; BP diastolic 62–80; BMI 31.9; BMI 31.1
[2023-11-21] MEDS: TYLENOL 650 MG PO (04:33)
[2023-11-21 08:19] LABS: Glucose - Point of Care 193 mg/dl (70-99)
[2023-11-21] MEDS: LASIX 40 MG IV (08:50)
[2023-11-21] MEDS: HEPARIN 5000 UNITS SC ×2 (08:50→20:13)
[2023-11-21] MEDS: THERAGRAN 1 TABLET PO (08:51)
[2023-11-21] MEDS: MIRALAX 17 GRAMS PO (08:51)
[2023-11-21] MEDS: LOPRESSOR 12.5 MG PO ×2 (08:51→20:12)
[2023-11-21] MEDS: PROTONIX 40 MG PO (08:51)
[2023-11-21] MEDS: MAGNESIUM OXIDE 1000 MG PO ×2 (08:51→20:09)
[2023-11-21] MEDS: SODIUM CHLORIDE 0.5 GRAM PO ×2 (08:51→20:10)
[2023-11-21 08:56] LABS: % Basophils 0.2 % (0-2); % Eosinophils 0.7 % (0-6); % Immature Granulocytes 0.3 % (0-0.5); % Lymphocytes 24.1 % (20.5-51.1); % Monocytes 8.6 % (1.7-9.3); % Neutrophils 66.1 % (42.2-75.2); Absolute Eosinophils 0.1 10^3/uL (0-0.7); Absolute Lymphocytes 2.3 10^3/uL (1.2-3.4); Absolute Monocytes 0.8 10^3/uL (0.1-0.6); Absolute Neutrophils 6.3 10^3/uL (1.4-6.5); Hematocrit 26.4 % (37.0-47.0); Hemoglobin 8.7 g/dL (12.0-16.0); Mean Corpuscular Hgb 29.8 pg (27.0-31.0); Mean Corpuscular Volume 90.4 fL (81.0-99.0); Mean Platelet Volume 10.9 fL (7.4-10.4); Nucleated Red Blood Cells % 0 %; Platelet Count 267 10^3/uL (130-400); Red Blood Cell Count 2.92 10^6/uL (4.20-5.40); Red Cell Dist. Width 15.5 % (11.5-14.5); White Blood Cell Count 9.5 10^3/uL (4.8-10.8)
[2023-11-21 09:01] LABS: ALT (SGPT) 28 U/L (0-35); AST (SGOT) 24 U/L (14-36); Albumin 2.9 g/dl (3.5-5.0); Alkaline Phosphatase 64 U/L (38-126); Blood Urea Nitrogen 34 mg/dl (7-17); Calcium 8.8 mg/dl (8.4-10.2); Carbon Dioxide 28 mmol/L (22-30); Chloride 99 mmol/L (98-107); Estimated Creatinine Clearance 36 ml/min; Glucose 185 mg/dl (70-99); Potassium 4.7 mmol/L (3.5-5.1); Sodium 138 mmol/L (135-145); Total Bilirubin 0.5 mg/dl (0.2-1.3); Total Protein 5.4 g/dl (6.3-8.2); eGFR 54.19
[2023-11-21] MEDS: NOVOLOG FLEXPEN-LOW RESISTANCE 1 UNITS SC (09:04)
--- NOTE | 2023-11-21 09:14 | W.PN.HOSP.TC ---
Today's Communication/Plan
-
Diuresis
Cardiology consult
PT/OT
Upper extremity Doppler ultrasound
Assessment / Plan
Assessment / Plan
Gen-AAOx3, mildly tachypneic
HEENT-NC, AT, anicteric, clear oral mm
Neck-supple
CV-reg, no M, +S1/S2
Lungs-clear B/L
Abd-soft, NT, ND
Ext-mild bilateral ankle edema, left greater than right upper extremity edema
Musculoskeletal-no cyanosis, clubbing
Skin-warm and dry
Neuro-grossly non-focal
Psych-calm, cooperative
Acute heart failure exacerbation - unknown type of heart failure. Check echocardiogram. Continue Lasix. Cardiology consulted. Chest x-ray does show pulmonary edema. BNP 6390.
Anasarca -with chronic hypoalbuminemia and upper and lower extremity edema. Urinalysis in September did not show albuminuria.
Given asymmetric upper extremity edema we will check Doppler ultrasound.
Paroxysmal atrial fibrillation -patient unaware of diagnosis. Does not have a comprehensive advisor. Is not on anticoagulation.
Hyperlipidemia -atorvastatin.
DM2 with hyperglycemia -hemoglobin A1c pending. Glucose 185 this morning. She is on glargine 20 units at bedtime, lispro 5 units AC, lispro sliding scale at home.
History of dysphagia
GERD
History of melanoma -ocular melanoma with liver mets.
History of fecal impaction -admitted to our hospital in September of this year. Colonoscopy in September showed nonbleeding internal hemorrhoids, diverticulosis in the sigmoid colon. Sigmoid diverticular stricture.
Full code
PT/OT
She resides in assisted living.
Anticipated Discharge: > 48 hours
Subjective/Interval History
-
Date of Service: November 21, 2023
Patient seen and examined. No complaints.
Objective Data
-
Labs:
Laboratory Results
11/21/23
07:35
WBC 9.5
Hgb 8.7 L
Hct 26.4 L
Plt Count 267 D
Sodium 138
Potassium 4.7
Chloride 99
Carbon Dioxide 28
BUN 34 H
Creatinine 1.0
Glucose 185 H
Calcium 8.8
Total Bilirubin 0.5
AST 24
ALT 28
Alkaline Phosphatase 64
Vital Signs:
Vital Signs
Temp Pulse Resp BP Pulse Ox
97.8 F 62 20 136/62 98
11/21/23 07:30 11/21/23 08:50 11/21/23 07:30 11/21/23 08:50 11/21/23 07:30
I&O
11/20/23 11/21/23 11/22/23
06:59 06:59 06:59
Intake Total 300 / 300
Output Total 2350 / 2350
Balance -2049 / -2049
Review of Systems
-
History Source: Patient
All other systems: Reviewed and negative
--- NOTE | 2023-11-21 10:26 | CON.CAR ---
Addendum entered and electronically signed by Rafa Gaytan MD 11/21/23 12:14:
I saw and examined the patient.
The RETURNED GOODS REPAIRER's note was reviewed and I agree with the note.
88-year-old woman with a history of diabetes, hypertension hypercholesterolemia and history of melanoma who has had increased edema over the past weeks she has some associated exertional shortness of breath. Sounds as if she has some chronic
exertional shortness of breath which has increased. In addition weight gain has been noted. Chest x-ray with pleural effusions and proBNP elevated suggestive of acute heart failure.. Patient appears to be responding with diet to diuretic and is 2
L negative
-Continue diuresis with close monitoring of weights, labs and renal function
-Echocardiogram
-Reassess hemoglobin considering there was a reduction in the hemoglobin from yesterday to today. No signs of acute bleeding.
-PAF listed as a diagnosis although not clear that patient truly has PAF.. Patient denies PAF. She has had sinus rhythm with PACs with no clear PAF. On a prior hospital record there is a rhythm strip that is labeled as A-fib that is sinus with
PACs. Will continue to monitor on telemetry
Original Note:
Consultation
Consultation Request
Date/Time Consultation Requested: 11/20/23 10p
Date/Time Consultation Performed: 11/21/23 9a
Requesting Provider: Dr. Tobar
Performing Provider: DAMIAN Tinoco for Dr. Gaytan
Reason for Consultation: larson/sob
Medical History
-
Chief Complaint: sob/larson
History of Present Illness:
Mrs. 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
a couple months and 20 lbs weight gain in about 10 days. She lives at [facility] and she states they gave her Lasix but without improvement. She is admitted to the hospitalist with acute HF. Currently she reports feeling well, denies SOB
at rest and feels swelling has improved. CXR with bilateral pleural effusions, probably small to moderate and elevated proBNP 6390. She denies a history of Afib, prior tele strips at show NSR with PACs.
Past Medical History
Past Medical History: Other (as above)
Past Surgical History: Other (as above)
Social History
Tobacco: Non-Smoker
Alcohol: Occasional (holiday/birthday celebration only)
Personal:
Living: Assisted Living ([facility])
Employment: Retired
Family History
Family History: Reviewed & Not Pertinent
Allergies / Home Medications
Allergy/AdvReac Type Severity Reaction Status Date / Time
risedronate sodium Allergy Unknown Verified 11/20/23 13:54
sensodyne toothpaste Allergy Unknown Uncoded 11/20/23 13:54
�Medication �Instructions �Recorded �Confirmed �Type
acetaminophen 325 mg tablet 650 mg PO Q6HPRN PRN mild pain 09/28/23 11/20/23 History
(Tylenol)
atorvastatin 40 mg tablet (Lipitor) 40 mg PO HS High Cholesterol 09/28/23 11/20/23 History
calcium carbonate (Tums) 200 mg PO TIDPRN PRN gerd 09/28/23 11/20/23 History
insulin lispro 100 unit/mL 0 sliding scale dose SC AC Diabetes 09/28/23 11/20/23 History
subcutaneous pen (Humalog KwikPen
(U-100) Insulin)
omeprazole 20 mg tablet,delayed 20 mg PO DAILY Gastrointestinal 09/28/23 11/20/23 History
release Issue
therapeutic multivitamin 1 tab PO DAILY Supplement 09/28/23 11/20/23 History
magnesium oxide 1,000 mg (2 x 500 mg magnesium) PO 10/04/23 11/20/23 Rx
BID #0 tabs
polyethylene glycol 3350 17 gram 17 g PO DAILY #30 ea 10/04/23 11/20/23 Rx
oral powder packet (HealthyLax)
sodium chloride 1,000 mg soluble 500 mg (1/2 x 1,000 mg) PO BID #60 10/04/23 11/20/23 Rx
tablet tabs
furosemide 20 mg tablet 20 mg PO DAILY Fluid 11/20/23 11/20/23 History
Retention/Swelling
insulin glargine-yfgn 100 unit/mL 20 unit SC HS Diabetes 11/20/23 11/20/23 History
(3 mL) subcutaneous pen
insulin lispro 100 unit/mL 5 unit SC AC 11/20/23 11/20/23 History
subcutaneous pen (Humalog KwikPen
(U-100) Insulin)
metoprolol tartrate 25 mg tablet 12.5 mg PO BID Blood Pressure 11/20/23 11/20/23 History
potassium, sodium phosphates 280 1 packet PO BID Supplement 11/21/23 11/20/23 History
mg-160 mg-250 mg oral powder
packet (Phosphorous Supplement)
Review of Systems
-
History Source: Patient
All other systems: Negative unless noted
Physical Exam
Vital Signs
Temp Pulse Resp BP Pulse Ox
97.8 F 62 20 136/62 98
11/21/23 07:30 11/21/23 08:50 11/21/23 07:30 11/21/23 08:50 11/21/23 07:30
Lab Results
11/21/23 07:35
11/21/23 07:35
Oxk-O-Zfyjylkxqbn Pept 6390 pg/ml 11/20/23 14:29
Physical Exam
General: Well Developed, Well Nourished and No Apparent Distress
HEENT: Normocephalic, Anicteric and Moist Mucous Membranes
Respiratory: Crackles (bibasilar)
Cardiac: S1/S2 and Regular Rhythm
Breast: Deferred by me
GI: Soft, Non Tender, Non Distended and Normal Bowel Sounds
Genito-urinary: No Costovertebral Tender
Musculoskeletal: No Clubbing, No Cyanosis and No Edema
Skin: Warm and Dry
Neuro: AO x 3
Hematologic/Lymphatic: No Lymphadenopathy
Psych: Calm
Impression / Plan
-
SOB - acute CHF.
- agree with IV Lasix for diuresis.
- daily weights, I&Os, fluid/sodium restrictions.
- check echo today.
HTN - stable on meds, continue.
- monitor with diuresis.
HLD - stable on Lipitor, continue.
PACs - chronic, stable on Lopressor.
- no Afib seen on tele.
IDDM - per hospitalist.
Ocular melanoma - left eye removed.
- mets to liver, s/p immunotherapy.
Data Reviewed
-
EKG: Other (ordered EKG now )
Labs: Labs Reviewed by me
Old Records: Reviewed
[2023-11-21 10:54] LABS: Urine Albumin Negative (Neg - Trace); Urine Bilirubin Negative (Negative); Urine Character Clear (Clear); Urine Color Yellow; Urine Glucose 1+ (Negative); Urine Ketone Negative (Negative); Urine Leukocyte 1+ (Negative); Urine Nitrite Negative (Negative); Urine Occult Blood 4+ (Negative); Urine Specific Gravity 1.005 (<1.030); Urine Urobilinogen Negative (Neg - 1+)
[2023-11-21 11:00] LABS: Glycohemoglobin (HgbA1c) 7.2 % (4.0-5.6)
[2023-11-21 11:52] LABS: Urine Squamous Cell 0-2 /LPF (Few)
[2023-11-21 11:53] LABS: Urine Bacteria Few (Negative); Urine Red Blood Cell 30-40 /HPF (0-2)
[2023-11-21 13:00] LABS: Glucose - Point of Care 297 mg/dl (70-99)
[2023-11-21] MEDS: NOVOLOG FLEXPEN-LOW RESISTANCE 3 UNITS SC (13:08)
--- NOTE | 2023-11-21 16:47 | CM ---
Evonne is an Independent resident of [facility], a [facility]. Evonne was living in her own apartment prior to recent illnesses. She had recent hospitalizations at [facility] and now at [place] [facility]. Between hospitalizations Evonne went to the SNF at [facility] ([facility]).
SNF client director would like Evonne to return to [facility] for rehab prior to returning to her independent apartment. CM will follow to coordinate discharge to [facility] at discharge. Will need insurance authorization.
[2023-11-21 16:50] LABS: Glucose - Point of Care 307 mg/dl (70-99)
[2023-11-21] MEDS: NOVOLOG FLEXPEN-LOW RESISTANCE 4 UNITS SC (16:56)
[2023-11-21 21:16] LABS: Glucose - Point of Care 289 mg/dl (70-99)
[2023-11-21] MEDS: LIPITOR 40 MG PO (21:17)
[2023-11-21] MEDS: LANTUS 0.2 UNITS SC (21:18)
[2023-11-22] VITALS (8 sets, daily range): BP systolic 121–142; BP diastolic 54–67; PULSE 73; O2SAT 96; BMI 30.9
[2023-11-22 05:38] LABS: % Basophils 0.2 % (0-2); % Eosinophils 0.8 % (0-6); % Immature Granulocytes 0.5 % (0-0.5); % Lymphocytes 19.5 % (20.5-51.1); % Monocytes 9.6 % (1.7-9.3); % Neutrophils 69.4 % (42.2-75.2); Absolute Eosinophils 0.1 10^3/uL (0-0.7); Absolute Lymphocytes 1.7 10^3/uL (1.2-3.4); Absolute Monocytes 0.8 10^3/uL (0.1-0.6); Absolute Neutrophils 5.9 10^3/uL (1.4-6.5); Hematocrit 27.3 % (37.0-47.0); Hemoglobin 9.4 g/dL (12.0-16.0); Mean Corp Hgb Conc. 34.4 g/dL (33.0-37.0); Mean Corpuscular Hgb 31.1 pg (27.0-31.0); Mean Corpuscular Volume 90.4 fL (81.0-99.0); Mean Platelet Volume 10.8 fL (7.4-10.4); Nucleated Red Blood Cells % 0 %; Platelet Count 221 10^3/uL (130-400); Red Blood Cell Count 3.02 10^6/uL (4.20-5.40); Red Cell Dist. Width 15.4 % (11.5-14.5); White Blood Cell Count 8.5 10^3/uL (4.8-10.8)
[2023-11-22 05:56] LABS: ALT (SGPT) 23 U/L (0-35); AST (SGOT) 21 U/L (14-36); Albumin 2.8 g/dl (3.5-5.0); Alkaline Phosphatase 60 U/L (38-126); Blood Urea Nitrogen 34 mg/dl (7-17); Calcium 8.6 mg/dl (8.4-10.2); Carbon Dioxide 29 mmol/L (22-30); Chloride 97 mmol/L (98-107); Estimated Creatinine Clearance 36 ml/min; Glucose 188 mg/dl (70-99); Potassium 4.5 mmol/L (3.5-5.1); Sodium 137 mmol/L (135-145); Total Bilirubin 0.5 mg/dl (0.2-1.3); Total Protein 5.3 g/dl (6.3-8.2); eGFR 54.19
[2023-11-22 06:54] LABS: Glucose - Point of Care 190 mg/dl (70-99)
[2023-11-22] MEDS: MAGNESIUM OXIDE 1000 MG PO ×2 (08:08→20:01)
[2023-11-22] MEDS: SODIUM CHLORIDE 0.5 GRAM PO ×2 (08:08→20:01)
[2023-11-22] MEDS: MIRALAX PO ×2 (08:08→08:23)
[2023-11-22] MEDS: LOPRESSOR 12.5 MG PO ×2 (08:08→20:01)
[2023-11-22] MEDS: PROTONIX 40 MG PO (08:09)
[2023-11-22] MEDS: NOVOLOG FLEXPEN-LOW RESISTANCE 1 UNITS SC (08:09)
[2023-11-22] MEDS: LASIX 40 MG IV ×2 (08:09→20:00)
[2023-11-22] MEDS: HEPARIN 5000 UNITS SC ×2 (08:09→20:00)
[2023-11-22] MEDS: THERAGRAN 1 TABLET PO (08:10)
--- NOTE | 2023-11-22 10:05 | W.PN.CD ---
Today's Communication / Plan
-
Advance HF treatment as detailed
Follow BMP carefully
May ask pt to see cardio-oncology in followup (Dr. Babin in our office)
55 min spent with pt, chart review, document generation, order entry representative, etc
Impression / Plan
-
Acute HFpEF,
- CXR, pBNP, exam, and symptoms all c/w heart failure
- agree with IV Lasix for diuresis => Incease to BID
- daily weights, I&Os, fluid/sodium restrictions.
- Will add Aldactone 12.5 daily
- Will add Farxiga 10 mg a day and hope home SGLT2-I cost will be acceptable to patient, case management consulted
- Anticipate predischarge CXR and pBNP
- Will need BMP in 2 and 4 weeks with the new meds
HTN
HLD - stable on Lipitor, continue.
PACs, few short atrial runs, some RBBB aberration
DM, type II, on insulin
Prior atrial fibrillation
- not on anticoagulation
- Will not revisit anticoagulation decision
- In sinus
Metastatic melanoma
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
- mets to liver, s/p immunotherapy
- Will benefit from cardio-oncology evaluation
Subjective:
No CP. Edema better. Still with significant edema
Physical Exam
Vital Signs/Labs
Vital Signs
Temp Pulse Resp BP Pulse Ox
98.4 F 70 16 121/64 93
11/22/23 07:25 11/22/23 07:25 11/22/23 07:25 11/22/23 07:25 11/22/23 07:25
11/21/23 11/22/23 11/23/23
06:59 06:59 06:59
Actual Weight 76.43 kg 74.191 kg
11/22/23 04:54
09/07/24 04:54
Magnesium 2.2 mg/dl (1.6-2.3) 11/20/23 14:29
11/20/23
14:29
Sdw-O-Ppnjrlhmtim Pept 6390
Physical Exam
Constitutional: No acute distress
EENT: Anicteric
Cardiovascular: Rhythm & rate is regular, Pedal edema present and S1S2 is normal
Respiratory: Respiratory effort normal and Crackles Present (at bases)
GI: Soft, Distention absent and Non tender
Neuro/Psych: Alert
Data Reviewed
-
Date of Service: November 22, 2023
--- NOTE | 2023-11-22 10:54 | W.PN.HOSP.TC ---
Today's Communication/Plan
-
Continue diuresis
Assessment / Plan
Assessment / Plan
Gen-AAOx3, mildly tachypneic
HEENT-NC, AT, anicteric, clear oral mm
Neck-supple
CV-reg, no M, +S1/S2
Lungs-clear B/L
Abd-soft, NT, ND
Ext-mild bilateral ankle edema, left greater than right upper extremity edema
Musculoskeletal-no cyanosis, clubbing
Skin-warm and dry
Neuro-grossly non-focal
Psych-calm, cooperative
Acute heart failure with preserved EF exacerbation -clinically improving with diuresis. Cardiology following. Chest x-ray does show pulmonary edema. BNP 6390. Lasix dose increased to twice daily. Echocardiogram shows LVEF 55 to 60%, moderate
MR, trace TR.
Anasarca -with chronic hypoalbuminemia and upper and lower extremity edema. Urinalysis in September did not show albuminuria. Upper extremity Doppler ultrasound negative for DVT. Edema improving with diuresis.
History of atrial fibrillation -cardiology does not recommend anticoagulation.
Hyperlipidemia -atorvastatin.
DM2 with hyperglycemia -hemoglobin A1c 7.2%. Glucose 188 this morning. She is on glargine 20 units at bedtime, lispro 5 units AC, lispro sliding scale at home. Resume mealtime aspart.
History of dysphagia
GERD
History of melanoma -ocular melanoma with liver mets.
History of fecal impaction -admitted to our hospital in September of this year. Colonoscopy in September showed nonbleeding internal hemorrhoids, diverticulosis in the sigmoid colon. Sigmoid diverticular stricture.
Full code
PT/OT -SNF recommended. Case management aware.
She resides in assisted living.
Family updated at the bedside.
Anticipated Discharge: > 48 hours
Subjective/Interval History
-
Date of Service: November 22, 2023
Patient seen and examined. No complaints.
Objective Data
-
Labs:
Laboratory Results
11/22/23
04:54
WBC 8.5
Hgb 9.4 L
Hct 27.3 L
Plt Count 221
Sodium 137
Potassium 4.5
Chloride 97 L
Carbon Dioxide 29
BUN 34 H
Creatinine 1.0
Glucose 188 H
Calcium 8.6
Total Bilirubin 0.5
AST 21
ALT 23
Alkaline Phosphatase 60
Vital Signs:
Vital Signs
Temp Pulse Resp BP Pulse Ox
98.4 F 70 16 121/64 93
11/22/23 07:25 11/22/23 07:25 11/22/23 07:25 11/22/23 07:25 11/22/23 07:25
I&O
11/21/23 11/22/23 11/23/23
06:59 06:59 06:59
Intake Total 300 / 300 960 / 960
Output Total 2350 / 2350 2350 / 2350
Balance -205 / -2050 -1390 / -1390
Review of Systems
-
History Source: Patient
All other systems: Reviewed and negative
[2023-11-22] MEDS: ALDACTONE 12.5 MG PO (11:01)
[2023-11-22 11:37] LABS: Glucose - Point of Care 275 mg/dl (70-99)
--- NOTE | 2023-11-22 12:49 | CM ---
Addendum entered by LUIS Beckford 11/22/23 13:46:
Received TT from RN for patient saying patient & family agree patient will return to [facility] but will need auth to return.
Original Note:
COnsult received for restrepo check on generic Farxiga and Jardiance 10 mg. daily. [facility] uses [employer] and the drugs are not covered. IF patient uses her mail order script service ther generic Farxiga is $290.00 for 3 month supply. When
her local [facility] was entered it said her plan did not cover the medication. Met with patient dgtr and son in law. Gave this information on medication covereage. Dgtr said patient also had a PACE card for Rx. Dgtr will call patient's insurer and her
local [facility] to see what cost of the medications are under PACE.
Dgtr also concerned about patient going back to [facility] as she felt staff did not manage CHF well and patient increased in weight due to fluid build up. CM encouraged dgtr to call DON at [facility] on Friday. ALso gave list of other SNF in area
for short term rehab. Plan is back to [facility] after short rehab stay.
ALso gave information on [employer] [place] compare to family.
[2023-11-22] MEDS: NOVOLOG FLEXPEN 5 UNITS SC ×2 (12:56→17:05)
[2023-11-22] MEDS: NOVOLOG FLEXPEN-LOW RESISTANCE 3 UNITS SC (12:56)
[2023-11-22 16:59] LABS: Glucose - Point of Care 239 mg/dl (70-99)
[2023-11-22] MEDS: NOVOLOG FLEXPEN-LOW RESISTANCE 2 UNITS SC (17:05)
[2023-11-22] MEDS: IMODIUM 2 MG PO (21:33)
[2023-11-22] MEDS: LANTUS 0.2 UNITS SC (21:34)
[2023-11-22] MEDS: LIPITOR 40 MG PO (21:34)
[2023-11-22 21:35] LABS: Glucose - Point of Care 234 mg/dl (70-99)
[2023-11-23 03:45] VITALS: BP 134/59
[2023-11-23 06:00] VITALS: BMI 29.8
[2023-11-23 06:57] LABS: Glucose - Point of Care 204 mg/dl (70-99)
[2023-11-23 07:25] VITALS: BP 140/73
[2023-11-23 07:27] LABS: ALT (SGPT) 22 U/L (0-35); AST (SGOT) 20 U/L (14-36); Albumin 2.9 g/dl (3.5-5.0); Alkaline Phosphatase 61 U/L (38-126); Blood Urea Nitrogen 35 mg/dl (7-17); Calcium 8.9 mg/dl (8.4-10.2); Carbon Dioxide 32 mmol/L (22-30); Chloride 95 mmol/L (98-107); Estimated Creatinine Clearance 32 ml/min; Glucose 192 mg/dl (70-99); Potassium 4.6 mmol/L (3.5-5.1); Sodium 135 mmol/L (135-145); Total Bilirubin 0.6 mg/dl (0.2-1.3); Total Protein 5.3 g/dl (6.3-8.2); eGFR 48.33
[2023-11-23] MEDS: NOVOLOG FLEXPEN-LOW RESISTANCE 2 UNITS SC ×3 (08:43→15:58)
[2023-11-23] MEDS: NOVOLOG FLEXPEN 5 UNITS SC (08:44)
[2023-11-23] MEDS: FARXIGA 10 MG PO (08:45)
[2023-11-23] MEDS: SODIUM CHLORIDE 0.5 GRAM PO ×2 (08:45→19:53)
[2023-11-23] MEDS: PROTONIX 40 MG PO (08:45)
[2023-11-23] MEDS: LASIX 40 MG IV ×2 (08:46→19:54)
[2023-11-23] MEDS: LOPRESSOR 12.5 MG PO ×2 (08:46→19:53)
[2023-11-23] MEDS: HEPARIN 5000 UNITS SC ×2 (08:46→19:53)
[2023-11-23] MEDS: THERAGRAN 1 TABLET PO (08:46)
[2023-11-23] MEDS: MAGNESIUM OXIDE 1000 MG PO ×2 (08:46→19:53)
--- NOTE | 2023-11-23 10:26 | W.PN.HOSP.TC ---
Today's Communication/Plan
-
Adjust insulin
Assessment / Plan
Assessment / Plan
Gen-AAOx3, mildly tachypneic
HEENT-NC, AT, anicteric, clear oral mm
Neck-supple
CV-reg, no M, +S1/S2
Lungs-clear B/L
Abd-soft, NT, ND
Ext-mild bilateral ankle edema, left greater than right upper extremity edema
Musculoskeletal-no cyanosis, clubbing
Skin-warm and dry
Neuro-grossly non-focal
Psych-calm, cooperative
Acute heart failure with preserved EF exacerbation -clinically improving with diuresis. Weight coming down. Cardiology following. Chest x-ray does show pulmonary edema. BNP 6390. Lasix dose increased to twice daily. Echocardiogram shows LVEF
55 to 60%, moderate MR, trace TR.
Rising BUN and creatinine noted, suggest changing Lasix to oral if okay with cardiology.
Anasarca -with chronic hypoalbuminemia and upper and lower extremity edema. Urinalysis in September did not show albuminuria. Upper extremity Doppler ultrasound negative for DVT. Edema improving with diuresis.
History of atrial fibrillation -cardiology does not recommend anticoagulation.
Hyperlipidemia -atorvastatin.
DM2 with hyperglycemia -hemoglobin A1c 7.2%. Glucose 188 this morning. She is on glargine 20 units at bedtime, lispro 5 units AC, lispro sliding scale at home. Increase mealtime insulin to 8 units AC.
History of dysphagia
GERD
History of melanoma -ocular melanoma with liver mets.
History of fecal impaction -admitted to our hospital in September of this year. Colonoscopy in September showed nonbleeding internal hemorrhoids, diverticulosis in the sigmoid colon. Sigmoid diverticular stricture.
Full code
PT/OT -SNF recommended. Case management aware.
She resides in independent living community.
Anticipated Discharge: Within 24 hours
Subjective/Interval History
-
Date of Service: November 23, 2023
Patient seen and examined. No complaints.
Objective Data
-
Labs:
Laboratory Results
11/23/23
06:37
Sodium 135
Potassium 4.6
Chloride 95 L
Carbon Dioxide 32 H
BUN 35 H
Creatinine 1.1 H
Glucose 192 H
Calcium 8.9
Total Bilirubin 0.6
AST 20
ALT 22
Alkaline Phosphatase 61
Vital Signs:
Vital Signs
Temp Pulse Resp BP Pulse Ox
98 F 76 16 140/73 97
11/23/23 07:25 11/23/23 07:25 11/23/23 07:25 11/23/23 07:25 11/23/23 07:25
I&O
11/22/23 11/23/23 11/24/23
06:59 06:59 06:59
Intake Total 960 / 960 720 / 720
Output Total 2350 / 2350 4350 / 4350
Balance -1390 / -1390 -3630 / -3630
Review of Systems
-
History Source: Patient
All other systems: Reviewed and negative
[2023-11-23 11:15] VITALS: BP 123/55
[2023-11-23 11:59] LABS: Glucose - Point of Care 217 mg/dl (70-99)
[2023-11-23] MEDS: NOVOLOG FLEXPEN 8 UNITS SC ×2 (12:06→15:58)
--- NOTE | 2023-11-23 13:32 | W.PN.CD ---
Addendum entered and electronically signed by Judson Glez MD 11/23/23 15:20:
Clarification;
lets give Lasix 40 mg IV BID today (got that yesterday) and plan PO Lasix tomorrow. will try 60 mg PO one time daily.
Original Note:
Today's Communication / Plan
-
Continue BID Lasix for another 1-3 days
Check with case management to see if SGLT2-I will be affordable for outpatient use
Impression / Plan
-
Acute HFpEF,
- CXR, pBNP, exam, and symptoms all c/w heart failure
- agree with IV Lasix for diuresis => Inceased to BID, nice response, still with edema
- daily weights, I&Os, fluid/sodium restrictions.
- Added Aldactone 12.5 daily
- Added Farxiga 10 mg a day and hope home SGLT2-I cost will be acceptable to patient, case management consulted
- Anticipate predischarge CXR and pBNP
- Will need BMP in 2 and 4 weeks with the new meds
Moderate Mitral regurg on echo this admit
- Echo 11/21/2023: LVEF 55-60%, mod MR
HTN
HLD - stable on Lipitor, continue.
PACs, few short atrial runs, some RBBB aberration
DM, type II, on insulin
Prior atrial fibrillation
- not on anticoagulation
- Will not revisit anticoagulation decision
- In sinus
Metastatic melanoma
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
- mets to liver, s/p immunotherapy
- Will benefit from cardio-oncology evaluation
Subjective:
No CP. Edema better. Still with significant edema
Physical Exam
Vital Signs/Labs
Vital Signs
Temp Pulse Resp BP Pulse Ox
98 F 60 20 123/55 97
11/23/23 11:15 11/23/23 11:15 11/23/23 11:15 11/23/23 11:15 11/23/23 11:15
11/22/23 11/23/23 11/24/23
06:59 06:59 06:59
Actual Weight 74.191 kg 71.384 kg
11/22/23 04:54
11/23/23 06:37
Magnesium 2.2 mg/dl (1.6-2.3) 11/20/23 14:29
11/20/23
14:29
Eaw-O-Wnvoozfezoi Pept 6390
Physical Exam
EENT: Anicteric
Cardiovascular: Rhythm & rate is regular, Pedal edema present and S1S2 is normal
Respiratory: Respiratory effort normal and Lungs clear to auscul.
GI: Soft and Distention absent
Neuro/Psych: Alert
Data Reviewed
-
Date of Service: November 23, 2023
--- NOTE | 2023-11-23 15:07 | CM ---
CM called to [facility] and left requesting NPI numbers to start auth. CM sent referral to facility via all scripts to request bed availability and NPI numbers to start auth for [employer]. CM will continue to follow for discharge planning
needs.
Plan; return to [facility] when auth obtained and confirmation of bed availability.
[2023-11-23 15:25] VITALS: BP 109/61
[2023-11-23 15:57] LABS: Glucose - Point of Care 233 mg/dl (70-99)
[2023-11-23] MEDS: TYLENOL 650 MG PO (18:36)
[2023-11-23 19:25] VITALS: BP 110/59
[2023-11-23] MEDS: LIPITOR 40 MG PO (19:53)
[2023-11-23 21:10] LABS: Glucose - Point of Care 202 mg/dl (70-99)
[2023-11-23] MEDS: LANTUS 0.2 UNITS SC (21:12)
[2023-11-23 23:09] VITALS: BP 119/57
[2023-11-24] MEDS: TYLENOL 650 MG PO (01:02)
[2023-11-24 03:11] VITALS: BP 113/43
[2023-11-24 06:00] VITALS: BMI 29.2
[2023-11-24 07:25] VITALS: BP 126/62
--- NOTE | 2023-11-24 07:52 | W.PN.HOSP.TC ---
Today's Communication/Plan
-
Discharge to short-term rehab when insurance authorization has been obtained
Assessment / Plan
Assessment / Plan
Acute heart failure with preserved EF exacerbation -clinically improving with diuresis. Weight coming down. Chest x-ray does show pulmonary edema. BNP 6390. Echocardiogram shows LVEF 55 to 60%, moderate MR, trace TR. Appreciate cardiology input,
status post IV Lasix, currently on Lasix 60 mg p.o. daily
Anasarca -with chronic hypoalbuminemia and upper and lower extremity edema. Urinalysis in September did not show albuminuria. Upper extremity Doppler ultrasound negative for DVT. Edema improving with diuresis.
History of atrial fibrillation -cardiology does not recommend anticoagulation.
Hyperlipidemia -atorvastatin.
DM2 with hyperglycemia -hemoglobin A1c 7.2%. Glucose 188 this morning. She is on glargine 20 units at bedtime, lispro 5 units AC, lispro sliding scale at home. Increase mealtime insulin to 8 units AC.
History of dysphagia
GERD
History of melanoma -ocular melanoma with liver mets.
History of fecal impaction -admitted to our hospital in September of this year. Colonoscopy in September showed nonbleeding internal hemorrhoids, diverticulosis in the sigmoid colon. Sigmoid diverticular stricture.
DVT ppx - SQ heparin
Full code
PT/OT -SNF recommended. Case management aware.
She resides in independent living community.
Updated daughter at bedside 11/23
Total time spent to see the patient on the floor, examine the patient, review data and lab results, discuss treatment plan with patient, nursing staff around 40 minutes.
PE
Gen-AAOx3, mildly tachypneic
HEENT-NC, AT, anicteric, clear oral mm
Left eye enucleation noted
Neck-supple
CV-reg, no M, +S1/S2
Lungs-clear B/L
Abd-soft, NT, ND
Ext-mild bilateral ankle edema, left greater than right upper extremity edema
Musculoskeletal-no cyanosis, clubbing
Skin-warm and dry
Neuro-grossly non-focal
Psych-calm, cooperative
Anticipated Discharge: Today
Subjective/Interval History
-
Date of Service: November 24, 2023
Patient denies shortness of breath. No fever, no vomiting.
Objective Data
-
Labs:
Laboratory Results
11/24/23
06:38
Sodium Pending
Potassium Pending
Chloride Pending
Carbon Dioxide Pending
BUN Pending
Creatinine Pending
Glucose Pending
Calcium Pending
Total Bilirubin Pending
AST Pending
ALT Pending
Alkaline Phosphatase Pending
Vital Signs:
Vital Signs
Temp Pulse Resp BP Pulse Ox
97.6 F 61 18 113/43 92
11/24/23 03:11 11/24/23 03:11 11/24/23 03:11 11/24/23 03:11 11/24/23 03:11
I&O
11/23/23 11/24/23 11/25/23
06:59 06:59 06:59
Intake Total 720 / 720 1080 / 1080
Output Total 4350 / 4350 2725 / 2725
Balance -3630 / -3630 -1645 / -1645
[2023-11-24 08:18] LABS: Glucose - Point of Care 131 mg/dl (70-99)
[2023-11-24] MEDS: THERAGRAN 1 TABLET PO (08:18)
[2023-11-24] MEDS: HEPARIN 5000 UNITS SC (08:18)
[2023-11-24] MEDS: MAGNESIUM OXIDE 1000 MG PO (08:21)
[2023-11-24] MEDS: LOPRESSOR 12.5 MG PO (08:21)
[2023-11-24] MEDS: SODIUM CHLORIDE 0.5 GRAM PO (08:21)
[2023-11-24] MEDS: FARXIGA 10 MG PO (08:21)
[2023-11-24] MEDS: LASIX 60 MG PO (08:21)
[2023-11-24] MEDS: PROTONIX 40 MG PO (08:21)
--- NOTE | 2023-11-24 08:21 | W.PN.CD ---
Today's Communication / Plan
-
now on lasix 60mg daily and farxiga 10mg daily
discharge planning: we will call patient for follow up
BMP in one week
please call us with additional questions
Impression / Plan
-
Acute HFpEF: improved s/p IV lasix
- added Farxiga 10 mg a day
- transition to lasix 60mg PO daily
- BMP in one week
Moderate Mitral regurgitation on echo this admit
- Echo 11/21/2023: LVEF 55-60%, mod MR
-outpatient f/u
HTN-stable
HLD - stable on Lipitor, continue.
PACs, few short atrial runs, some RBBB aberration: continue metoprolol tartrate
DM, type II, on insulin
Prior atrial fibrillation (paroxysmal)
- not on anticoagulation as outpatient
- Will not revisit anticoagulation decision
- In sinus
Metastatic melanoma
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
- mets to liver, s/p immunotherapy
- Will f/u with cardio-oncology as outpatient
Subjective:
SOB better. Edema present, but improved.
Physical Exam
Vital Signs/Labs
Vital Signs
Temp Pulse Resp BP Pulse Ox
97.6 F 61 18 113/43 92
11/24/23 03:11 11/24/23 03:11 11/24/23 03:11 11/24/23 03:11 11/24/23 03:11
11/23/23 11/24/23 11/25/23
06:59 06:59 06:59
Actual Weight 71.384 kg 70.052 kg
11/22/23 04:54
Magnesium 2.2 mg/dl (1.6-2.3) 11/20/23 14:29
11/20/23
14:29
Uca-G-Mmtdyozzffs Pept 6390
Physical Exam
Constitutional: No acute distress and Comfortable
EENT: Moist mucous membranes
Cardiovascular: Rhythm & rate is regular, JVD pressure is normal, Pedal edema present and Systolic murmur present
Respiratory: Respiratory effort normal and Lungs clear to auscul.
GI: Soft and Distention absent
Neuro/Psych: AO x 3
Data Reviewed
-
Date of Service: November 24, 2023
EKG: Other (Tele: SR with PAC's and PVC's)
[2023-11-24] MEDS: NOVOLOG FLEXPEN 8 UNITS SC ×3 (08:22→16:53)
[2023-11-24] MEDS: NOVOLOG FLEXPEN-LOW RESISTANCE SC ×3 (08:22→16:54)
[2023-11-24 08:32] LABS: ALT (SGPT) 20 U/L (0-35); AST (SGOT) 20 U/L (14-36); Albumin 2.8 g/dl (3.5-5.0); Alkaline Phosphatase 60 U/L (38-126); Blood Urea Nitrogen 41 mg/dl (7-17); Calcium 8.5 mg/dl (8.4-10.2); Carbon Dioxide 32 mmol/L (22-30); Chloride 94 mmol/L (98-107); Estimated Creatinine Clearance 29 ml/min; Glucose 123 mg/dl (70-99); Potassium 4.3 mmol/L (3.5-5.1); Sodium 135 mmol/L (135-145); Total Bilirubin 0.7 mg/dl (0.2-1.3); Total Protein 5.3 g/dl (6.3-8.2); eGFR 43.54
[2023-11-24 11:10] VITALS: BP 116/52
--- NOTE | 2023-11-24 11:35 | CM ---
Addendum entered by Kaia Samano 11/24/23 12:08:
CM advised by Lynn Chaney that there is no bed available, possibly a bed available tomorrow at [facility]. Evonne and her daughter were provided with other [facility] communities, as they are concerned that Evonne will lose the gains she had made
while at [facility].
[facility] NPI: [id number]
Dr. Ana Laura Fonseca
Original Note:
CM met with Evonne and her daughter today at bedside. Plan is for return to [facility] at [facility]. Records faxed to admissions; Lynn Chaney - phone [phone]; fax [phone].
Awaiting NPI information for admitting physician.
CM to follow; Evonne's daughter will be able to drive her home.
[2023-11-24 12:05] LABS: Glucose - Point of Care 146 mg/dl (70-99)
[2023-11-24 13:31] VITALS: BP 125/59; PULSE 62; O2SAT 97
[2023-11-24 14:13] VITALS: BP 125/59; PULSE 65; O2SAT 98
--- NOTE | 2023-11-24 15:07 | W.DCSUMMARY ---
Discharge Summary
Discharge Data
Date of Admission: 11/20/23
Date of Discharge: 11/24/23
-
Pending Results: No
Hospital Course
Discharge diagnosis:
Acute heart failure with preserved ejection fraction
Moderate mitral regurgitation
Essential hypertension
Hyperlipidemia
Premature atrial contractions
Prior paroxysmal atrial fibrillation
Metastatic melanoma
Type 2 diabetes
Consults: Cardiology
Echo:
Normal left ventricular systolic function.
Left ventricular ejection fraction is 55-60%
Moderate mitral regurgitation.
Trace tricuspid regurgitation.
Hospital course:
88-year-old female with a past medical history of paroxysmal atrial fibrillation, melanoma status post immunotherapy, immunotherapy related colitis, fecal impaction, hyponatremia, anemia of chronic disease, ocular melanoma with metastasis to liver,
dysphagia, GERD, and type 2 diabetes who was admitted for acute heart failure with a preserved ejection fraction. Patient was seen in conjunction with cardiology. She was diuresed with IV Lasix. She was started on Farxiga 10 mg daily.
Patient had anasarca. Upper extremity Dopplers were negative for DVT. After several days, her weight trended down, her edema improved. Cardiology transitioned her from IV Lasix to Lasix 60 mg p.o. daily. She was previously on 20 mg p.o. daily.
Patient was seen in conjunction with PT, who recommended short-term rehab. Daughter declined, and wishes to take her home with home PT. Patient is medically stable for discharge. She needs to follow-up with her primary care doctor in 1 week, as
well as cardiology in the office. She will need a repeat BMP with her PCP in 1 week.
Disposition: Home with home care
Discharge planning: Required 39 minutes
Discharge Plan
-
Patient Disposition: Home with Home Care
Discharge Diagnosis/Procedures: Congestive heart failure
Condition: Good
Diet: 2 Gram Sodium and Restrict fluids to 64 oz
Activity: As tolerated
Blood Work: BMP with your PCP in 1 week
Specialty Instructions: Weigh Daily- Call MD for wt gain/loss 3 lbs overnight/5 lbs in 1 week
Activity Restrictions/Additional Instructions:
Cardiology recommends you increase your Lasix to 60 mg p.o. daily
You can take 3 of your 20 mg tablets.
Follow-up with cardiology in the office as directed, and your primary care doctor in 1 week.
Instructions: *CBC Heart Failure Instructions
Referrals:
Melia Hurtado CRNP [Specified Professional Personl] - 12/09/23 3:00 pm
Joe Champagne DO [Family Provider] - in one week
Prescriptions:
New
dapagliflozin propanediol 10 mg Tablet
10 mg PO DAILY Qty: 30 0RF
(DME) pen needle, diabetic 29 gauge x 3/8' needle
See Rx Instructions .Route Qty: 100 0RF
Rx Instructions:
As directed
Continued
atorvastatin [Lipitor] 40 mg Tablet
40 mg PO HS
therapeutic multivitamin Tablet
1 tab PO DAILY
omeprazole 20 mg Tablet,Delayed Release (Dr/Ec)
20 mg PO DAILY
acetaminophen [Tylenol] 325 mg Tablet
650 mg PO Q6HPRN PRN (Reason: mild pain)
calcium carbonate [Tums] 200 mg calcium (500 mg) Tablet,Chewable
200 mg PO TIDPRN PRN (Reason: gerd)
insulin lispro [Humalog KwikPen Insulin] 100 unit/mL Insulin Pen
0 sliding scale dose SC AC
Rx Instructions:
150-200=2units, 201-250=4units,251-300=6u,301-350=8u,351-400=10u
magnesium oxide 500 mg magnesium Tablet
1,000 mg PO BID Qty: 0 0RF
polyethylene glycol 3350 [HealthyLax] 17 gram Powder In Packet
17 g PO DAILY Qty: 30 0RF
sodium chloride 1,000 mg Tablet,Soluble
500 mg PO BID Qty: 60 0RF
metoprolol tartrate 25 mg Tablet
12.5 mg PO BID
potassium, sodium phosphates [Phosphorous Supplement] 280-160-250 mg powder in packet
1 packet PO BID
insulin lispro [Humalog KwikPen Insulin] 100 unit/mL Insulin Pen
5 unit SC AC Qty: 3 0RF
insulin glargine-yfgn 100 unit/mL (3 mL) insulin pen
20 unit SC HS Qty: 3 0RF
Changed
furosemide 20 mg Tablet
60 mg PO DAILY Qty: 270 0RF
Discharge Orders:
Discharge Patient (As Directed); Ordered 11/24/23
Ordered By: Dakotah Mosley
Discharge Date and Time
Print Language: [place] CITIZ[place]
[2023-11-24 15:20] VITALS: BP 112/59
--- NOTE | 2023-11-24 15:52 | VNURNOTE ---
Received message that patient will be going back home. [facility] nurses attempted to see patient prior to this admit, but she had returned to prior to start of care visit. [facility] referral [facility]. Patient had spoken to Hellen Lawton at [facility] Intake
office last week. Patient for DC today. [facility] Intake office notified.
--- NOTE | 2023-11-24 16:04 | CM ---
MANUEL met with Evonne and her daughter multiple times today to discuss return to SNF at [facility] vs. return to her apartment. Daughter will stay with Evonne in her apartment for the remained of the week and Evonne's on will be arriving from
[place] on Friday, with plan to stay with her for several days, as well.
Pt is known to [facility] and would like services to be resumed at [facility]. Cinthia Morales notified of same.
Lynn Chaney at [facility] notified of plan.
Plan: Discharge to apartment with [facility].
[2023-11-24] MEDS: PREVNAR 20 0.5 ML IM (16:22)
[2023-11-24 16:53] LABS: Glucose - Point of Care 105 mg/dl (70-99)
--- NOTE | 2023-11-25 08:34 | W.HF.CON ---
Heart Failure
- LV Function
Left ventricular function study result: LV Ejection fraction >40%
Ejection Fraction Percentage: 55-60
- ARNI
Patient already on ARNI: No
Heart Failure ARNI Not Indicated: LV Ejection Fraction >/= 40%
- ACEI/ARB
Patient already on ACEI/ARB: No
Heart Failure ACEI/ARB Not Indicated: LV Ejection Fraction > 40%
- Beta Lio
Patient already on Evidence Based Beta Lio: No
Heart Failure Evidence Based Beta Lio Not Indicated: LV Ejection Fraction > 40%
- Mineralocorticord Receptor Antagonist
Patient already on MRA: No
Heart Failure MRA Not Indicated: LV Ejection Fraction > 40%
- SGLT-2 Inhibitor
Patient already on SGLT-2 Inhibitor: Yes
- NYHA CHF Classification
NYHA CHF Classification Level: Class III - Symptoms w/ min exertion, interferes w/ nml daily activity
- ACC/AHA Stage
ACC/AHA Stage: Stage C: Symptomatic Heart Failure
== END 2023-11-24 18:20 | disposition home health service (06) | DRG 291 ==
LOC: 4 EAST ACU 16:11
PROVIDERS: Hospitalist; ADMITTING PHYSICIAN Hospitalist; ATTENDING PHYSICIAN Family Medicine; CONSULT PHYSICIAN Internal Medicine Cardiovascular Disease; EMERGENCY PHYSICIAN Emergency Medicine; FAMILY PHYSICIAN Family Medicine
DX: I11.0 Hypertensive heart disease with heart failure (principal); I50.31 Acute diastolic (congestive) heart failure; C78.7 Secondary malignant neoplasm of liver and intrahepatic bile duct; I34.0 Nonrheumatic mitral (valve) insufficiency; E78.00 Pure hypercholesterolemia, unspecified; I49.1 Atrial premature depolarization; I48.0 Paroxysmal atrial fibrillation; E11.9 Type 2 diabetes mellitus without complications; Z85.840 Personal history of malignant neoplasm of eye
CPT/HCPCS: 71046; 80053; 81003; 81015; 82962; 83036; 83735; 83880; 85025; 85027; 90677; 93005; 93306; 93970; 96374; 97116; 97162; 97166; 97530; 97535; 99285; G0009

== ENCOUNTER 2024-08-30 15:30 | Observation (INO) | payer OTHER, SELFPAY ==
[2024-08-30] VITALS (10 sets, daily range): BP systolic 98–137; BP diastolic 56–75; BMI 27.5
--- NOTE | 2024-08-30 12:01 | ED.GENMED ---
History of Present Illness
General
Chief Complaint: Fall
Source: patient
Exam Limitations: none
Time Seen by Provider: 08/30/24 11:42
Nursing documentation reviewed up to this point in time: agreed with
History of Present Illness
History of Present Illness:
Patient with history of metastatic ocular melanoma, who has been utilizing walker for long period of time, secondary to weakness and right hip pain, presents to ED after fall today while using her walker, due to recurrent lower leg weakness.
Patient denies loss of consciousness. Denies headache. Denies neck pain. Denies abdominal pain. Denies loss of sensation. Denies loss of consciousness. Denies preceding chest pain/palpitations/nausea. Denies urinary or bowel incontinence.
Per daughter, cancer has metastasized to her right hip bone. Patient has already been evaluated by orthopedic surgeon, and outpatient MRI has been recommended.
Past History
Past History
ED Past Medical History: HTN, Hypercholesterolemia and Other (Metastatic melanoma, hypertension, hyperlipidemia)
Review of Systems
Review of Systems
Allergies reviewed?: Yes
All Other Systems: ROS reviewed and negative except as documented in HPI and ROS
Constitutional: Reports no symptoms
Respiratory: Reports no symptoms
Cardiac: Reports no symptoms
ABD/GI: Reports no symptoms
Musculoskeletal: Reports other (Hip pain)
Skin: Reports no symptoms
Neurological: Reports weakness
Phy Exam
Physical Exam
Physical Exam:
Physical Exam
General: no apparent distress, not acutely ill
Head: nc/at.
Neck: supple. no meningeal signs.
Heart: s1/s2 regular rate and rhythm
Lungs: no acute respiratory distress. clear bilaterally
Abdomen: normal bowel sounds. not tender.
Neuro: alert and oriented x 3. no focal neurological deficits
Skin: an approx 0.5cm horizontal superficial laceration over mid chin without active bleeding. teeth intact
Psychiatric: well kept. interactive and cooperative
Extremities: mild right hip/upper buttock with range of motion/straight leg raise. no obvious deformity
Course
Orders/Labs/Results
Orders:
Orders
08/30/24 11:59
CT Head W/o Iv Contrast Urgent
Comment:
Reason For Exam: mult falls with weakness
Physical Therapy Consult [Pt Eval And Treat] Urgent
Activity Level: Ambulate
08/30/24 12:17
Complete Blood Count/With Diff Urgent
Comprehensive Metabolic Panel Urgent
Magnesium Urgent
TSH Urgent
08/30/24 14:02
Urinalysis Reflex To Culture Urgent
Date Specimen was Collected: 08/30/24
Time Specimen was Collected: 13:58
Urine Microscopic Reflex Cult Urgent
Urine Culture Urgent
SOFIA Source: U
Specimen Description:
Date Specimen was Collected: 08/30/24
Time Specimen was Collected: 13:58
08/30/24 14:08
Acetaminophen [Tylenol] 650 mg PO NOW STA
08/30/24 14:09
CR Hip - RT w/wo Pel 2-3 Vw* Urgent
Comment:
Reason For Exam: trauma
Include a pelvis x-ray?: Yes
08/30/24 14:24
Ibuprofen [Motrin] 400 mg PO NOW STA
08/30/24 14:25
0.9% Sodium Chloride 500 ml [Nss] 500 ml IV BOLUS
08/30/24 Dinner
2000 calorie (17 carb) Diabetic
At Your Request: Full Participation
Does patient need a safe tray?: No
08/30/24 15:14
Admit/Transfer Patient As Directed
Co-Sign Provider:
Level of Care: Observation services
Assign to:: Medical/Surgical
Physician / Group: Lay Tobar
Diagnosis: acute kidney injury, ambulatory dysfunction, mechanical fall
08/30/24 15:15
PRN Pain Medication Management As Directed
May give lesser potent ordered pain med per pt: Yes
preference::
Protocol:: Medication orders for pain may be administered in a
manner that supports deferring to patient preference
when the pt is:
- Requesting an ordered lesser potent pain medication.
Least to most potent pain medications are defined
as: acetaminophen < NSAID < tramadol < opioids
(morphine, oxycodone, hydromorphone).
- Requesting a lesser dose of the same medication IF
ORDERED.
- Requesting a less intrusive route of administration
if both routes are prescribed by the provider (PO <
IV).
08/30/24 15:16
Code Status As Directed
Resuscitation Status: Full Code
08/30/24 17:31
0.9% Sodium Chloride 500 ml [Nss] 500 ml IV 50 mls/hr
Acetaminophen [Tylenol] 650 mg PO Q4HPRN PRN
Heparin 5,000 units SC Q8
08/30/24 17:31
Case Management Consult ONCE
Case Management Consult: Discharge Planning
Activity As Directed
Activity Level: Out of Bed-Early Mobility
Intake/ Output As Directed
Frequency: Per unit guidelines
Vital Signs As Directed
Frequency: Per unit guidelines
Weight As Directed
Frequency: Daily
Type of Scale: Standing Scale
Comment: Daily morning weight. If unable to stand, use balanced bed scale.
Weight As Directed
Frequency: Once
Type of Scale: Standing Scale
Comment: Upon Admission. If unable to stand, use balanced bed scale.
Pulse Ox/cont/shift [RESP] Routine
Quantity: 1
Special Instructions: Daily pulse oximetry at rest. If greater than 92% at rest also obtain pulse oximetry
while ambulating as tolerated.
DX Deep Vein Thrombosis Video Routine
08/30/24 20:00
Metoprolol [Lopressor] 12.5 mg PO BID
08/30/24 22:00
Atorvastatin [Lipitor] 40 mg PO HS
08/31/24 06:00
Basic Metabolic Panel IN AM
08/31/24 08:00
Anastrozole [Arimidex] 1 mg PO DAILY
Dapagliflozin [Farxiga] 10 mg PO DAILY
Multivitamin [Theragran] 1 tablet PO DAILY
Abnormal Lab Results
08/30/24 08/30/24 08/30/24
12:01 12:17 14:02
RBC 3.35 L 10^6/uL
(4.20-5.40)
Hgb 10.3 L g/dL
(12.0-16.0)
Hct 30.5 L %
(37.0-47.0)
MPV 11.4 H fL
(7.4-10.4)
Abs Immat Gran (auto) 0.1 H 10^3/uL
(0-0.05)
Absolute Neuts (auto) 7.7 H 10^3/uL
(1.4-6.5)
Absolute Lymphs (auto) 0.7 L 10^3/uL
(1.2-3.4)
Immature Gran % 0.8 H %
(0-0.5)
Neutrophils % 85.0 H %
(42.2-75.2)
Lymphocytes % 8.2 L %
(20.5-51.1)
BUN 73 H mg/dl
(7-17)
Creatinine 1.8 H mg/dL
(0.6-1.0)
Glucose 244 H mg/dl
(70-99)
Magnesium 2.6 H mg/dl
(1.6-2.3)
Total Protein 5.9 L g/dl
(6.3-8.2)
Albumin 3.4 L g/dl
(3.5-5.0)
Urine Ketones 1+ A
(Negative)
Ur Occult Blood Reflex 4+ A
(Negative)
Urine RBC >100 A /HPF
(0-2)
Urine Bacteria (Reflex) Moderate A
(Negative)
Urine Glucose 4+ A
(Negative)
Urine Albumin (Reflex) 2+ A
(Neg - Trace)
POC Glucose 271 H mg/dl
(70-99)
08/30/24 12:17
08/30/24 12:17
Vital Signs
Initial and Last Documented VS:
Initial Vital Signs
Temp Pulse Resp BP Pulse Ox
98.1 F 91 16 136/75 98
08/30/24 10:42 08/30/24 10:42 08/30/24 10:42 08/30/24 10:42 08/30/24 10:42
Last Documented Vital Signs
Temp Pulse Resp BP Pulse Ox
98.2 F 80 17 105/64 97
08/30/24 17:31 08/30/24 19:56 08/30/24 17:31 08/30/24 19:56 08/30/24 17:31
Procedures
Laceration Closure
Chin:
Status of Wound: clean
Description of Wound Edges: sharp
Preparation: cleaned with SurClens
Anesthesia: 1% Lidocaine with epi
Revision/Debridement: routine- no revision
Type of Closure: single layer closure
Skin Closure Material: 5-0 nylon
Number of sutures: 3
MDM/Problems Addressed
MDM/Problems Addressed:
Wound well approximated after suture placement.
Blood work sig for ARF on CRI, consistent with likely dehydration. Pt will be admitted for iv hydration and further evaluation.
Pt evaluated in ED by physical therapy who feels that pt is unsafe to be discharged home at this time.
X-ray: no acute findings.
*Critical Care Note
Total Time (30-74mins, 75-104mins- exclusive of procedures): Not Applicable
ED Attending Note
-
Portions of this chart may have been created with voice recognition software.� Occasional wrong word or��sound alike� substitutions may have occurred due to the inherent limitations of voice recognition software.
Discharge Plan
Departure
Patient Disposition: Admit
Date of Disposition: 08/30/24
Time of Disposition: 14:30
Admit to: Med/Surg
Presentation/result/management discussed w/ accepting MD/DO: Hospitalist
Discharge Problem:
Weakness, Renal failure (ARF), acute on chronic, Dehydration
Interventions
Interventions:
*Risk Screen - Suicide Last Done: 08/30/24 10:42
*General Assessment Last Done: 08/30/24 11:04
*Neglect/Abuse Screening Last Done: 08/30/24 10:42
*ED- Fall Risk Assessment Last Done: 08/30/24 11:04
*ED COVID-19 Vaccine History Last Done: 08/30/24 11:04
*Nursing Disposition Last Done: 08/30/24 17:38
ED-Musculoskeletal Assessment Last Done: 08/30/24 11:04
ED- Neurological Assessment Last Done: 08/30/24 11:04
ED-Skin Assessment Last Done: 08/30/24 11:04
Discharge Date and Time
Discharge Date/Time: 08/30/24 17:41
[2024-08-30 12:03] LABS: Glucose - Point of Care 271 mg/dl (70-99)
[2024-08-30 12:31] LABS: % Basophils 0.2 % (0-2); % Eosinophils 0.3 % (0-6); % Immature Granulocytes 0.8 % (0-0.5); % Lymphocytes 8.2 % (20.5-51.1); % Monocytes 5.5 % (1.7-9.3); Absolute Immature Granulocytes 0.1 10^3/uL (0-0.05); Absolute Lymphocytes 0.7 10^3/uL (1.2-3.4); Absolute Monocytes 0.5 10^3/uL (0.1-0.6); Absolute Neutrophils 7.7 10^3/uL (1.4-6.5); Hematocrit 30.5 % (37.0-47.0); Hemoglobin 10.3 g/dL (12.0-16.0); Mean Corp Hgb Conc. 33.8 g/dL (33.0-37.0); Mean Corpuscular Hgb 30.7 pg (27.0-31.0); Mean Platelet Volume 11.4 fL (7.4-10.4); Nucleated Red Blood Cells % 0 %; Platelet Count 192 10^3/uL (130-400); Red Blood Cell Count 3.35 10^6/uL (4.20-5.40)
[2024-08-30 12:42] LABS: ALT (SGPT) 18 U/L (0-35); AST (SGOT) 26 U/L (14-36); Albumin 3.4 g/dl (3.5-5.0); Alkaline Phosphatase 70 U/L (38-126); Blood Urea Nitrogen 73 mg/dl (7-17); Calcium 9.3 mg/dl (8.4-10.2); Carbon Dioxide 25 mmol/L (22-30); Chloride 103 mmol/L (98-107); Estimated Creatinine Clearance 19 ml/min; Glucose 244 mg/dl (70-99); Magnesium 2.6 mg/dl (1.6-2.3); Potassium 4.2 mmol/L (3.5-5.1); Sodium 136 mmol/L (135-145); Total Bilirubin 0.8 mg/dl (0.2-1.3); Total Protein 5.9 g/dl (6.3-8.2); eGFR 26.77
[2024-08-30] MEDS: TYLENOL 650 MG PO (14:16)
[2024-08-30 14:26] LABS: Urine Albumin 2+ (Neg - Trace); Urine Bilirubin Negative (Negative); Urine Character Clear (Clear); Urine Color Yellow; Urine Glucose 4+ (Negative); Urine Ketone 1+ (Negative); Urine Leukocyte Negative (Negative); Urine Nitrite Negative (Negative); Urine Occult Blood 4+ (Negative); Urine Specific Gravity 1.015 (<1.030); Urine Urobilinogen Negative (Neg - 1+)
[2024-08-30] MEDS: MOTRIN 400 MG PO (14:27)
--- NOTE | 2024-08-30 14:37 | HPS.HSE ---
Family Physician
-
Family Physician: Joe Champagne
Chief Complaint
-
s/p mechanical fall
History of Present Illness
Patient is a 88-year-old female with past medical history significant for paroxysmal atrial fibrillation, HFpEF, GERD, type 2 diabetes, hyponatremia and anemia of chronic disease who presented to [facility] ED for evaluation s/p mechanical fall. Patient
with history of metastatic ocular melanoma with recent mets found in right hip. Patient has been utilizing walker for sometime related to weakness and now is noticing increased weakness and reports the right is weaker than the left. Patient reports
a mechanical fall yesterday at facility in hallway and one today in apartment. Patient denies head strike or loss of consciousness. She denies any prefall chest pain, palpitations, nausea, dizziness or lightheadedness.
Medical History
Past Medical History
Past Medical History: Reports Other
Additional Past Medical History:
paroxysmal atrial fibrillation
HFpEF
GERD
type 2 diabetes
hyponatremia
anemia of chronic disease
breast cancer
melanoma status post immunotherapy
immunotherapy related colitis
fecal impaction
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
dysphagia
Past Surgical History: Reports Other
Additional Past Surgical History:
Left eye resection
cholecystectomy
Social History
Tobacco: Non-smoker
Alcohol: None
Drug: None
Living: Assisted Living
Family History
Family History: Not pertinent
Allergies / Home Medications
Allergies reflects when Allergies were last updated in [employer].
Home Medications with original date entered in [employer]
Allergy/Medication List:
Allergies
Allergy/AdvReac Type Severity Reaction Status Date / Time
risedronate sodium Allergy Unknown Verified 08/30/24 10:44
sensodyne toothpaste Allergy Unknown Uncoded 08/30/24 10:44
Home Medications
atorvastatin 40 mg tablet (Lipitor) 40 mg PO HS High Cholesterol 09/28/23
therapeutic multivitamin 1 tab PO DAILY Supplement 09/28/23
dapagliflozin propanediol 10 mg tablet 10 mg PO DAILY #30 tabs 11/24/23
furosemide 20 mg tablet 60 mg (3 x 20 mg) PO DAILY Fluid Retention/Swelling #270 tabs 11/24/23
metoprolol tartrate 25 mg tablet 12.5 mg (1/2 x 25 mg) PO BID Blood Pressure #30 tabs 11/24/23
anastrozole 1 mg tablet 1 mg PO DAILY 08/30/24
insulin aspart U-100 100 unit/mL subcutaneous solution (Novolog U-100 Insulin aspart) 5 sliding scale dose SC AC 08/30/24
insulin glargine 100 unit/mL (3 mL) subcutaneous pen (Lantus Solostar U-100 Insulin) 20 unit SC QPM 08/30/24
Review of Systems
-
History Source: Patient
Musculoskeletal: Reports Joint Pain (right hip) and Other (generalized weakness, r leg>l leg )
Physical Exam
Vital Signs
Vital Signs
Temp Pulse Resp BP Pulse Ox
98.1 F 84 11 122/69 100
08/30/24 10:42 08/30/24 13:15 08/30/24 13:15 08/30/24 13:07 08/30/24 13:15
Physical Exam
General: Well Developed, Well Nourished, No Apparent Distress, Comfortable, Conversant and Appears Chronically Ill
HEENT: NormoCephalic, Moist mucous membranes, Atraumatic, Nose Appears Normal, Ears Appear Normal and Other (3 sutures to chin )
Respiratory: Clear
Cardiac: S1/S2 and Regular Rhythm
Breast: Deferred by me
GI: Soft, Non Tender, Non Distended and Normal Bowel Sounds; No Organomegaly
Rectal: Deferred by Provider
Genito-urinary: Deferred by me
Musculoskeletal: No Clubbing, No Cyanosis and No Edema
Skin: Warm and IV/Catheter Site
Neuro: Awake, Alert, AO x 3 and Nonfocal/grossly intact
Psych: Calm and Intact Judgment/Insight
Laboratory Results
-
08/30/24 12:17
08/30/24 12:17
Laboratory Results
Total Bilirubin 0.8 mg/dl (0.2-1.3) 08/30/24 12:17
AST 26 U/L (14-36) 08/30/24 12:17
ALT 18 U/L (0-35) 08/30/24 12:17
Alkaline Phosphatase 70 U/L (38-126) 08/30/24 12:17
Data Reviewed
-
CT Scan: Report Reviewed by me (Head: No acute intracranial abnormality identified.)
Lab Data: Labs Reviewed by me (hgb 10.3, hct 30.5, BUN 73, Creat 1.8, est CrCl 19, eGFR 26.77, )
Impression/Plan
-
IMPRESSION/PLAN:
#acute kidney injury
BUN 73, Creat 1.8, est CrCl 19, eGFR 26.[address]: No acute intracranial abnormality identified.
- Admit to med/surg
- liliana IVF
- hold nephrotoxic medications
- monitor BMP
#mechanical fall 2/2 generalized weakness
- consult PT
- consult case management
#paroxysmal atrial fibrillation
- continue metoprolol
#HFpEF
ECHO (11/21/2023): Normal left ventricular systolic function.
Left ventricular ejection fraction is 55-60%
Moderate mitral regurgitation.
Trace tricuspid regurgitation.
No prior study available for comparison.
- daily weights
- I & Os
- continue dapagliflozin
- HOLD furosemide in setting of CITLALLI
#type 2 diabetes
- AccuCheck AC & HS
- SSI
- continue Lantus 20u qPM
#hyponatremia
Na+ 136
- monitor BMP
#anemia of chronic disease
hgb 10.3, hct 30.5
- monitor CBC
#breast cancer
- continue anastrozole
#hx metastatic ocular cancer
Code status: full code
DVT prophylaxis: heparin sq
[2024-08-30] MEDS: NSS 500 IV ×2 (14:45→17:56)
--- NOTE | 2024-08-30 15:23 | W.PN.UPDATE ---
Update Note
Progress Note Update
This is an addendum to H&P written by Kalyani Ford in 08/30/2024. �Patient seen examined independently with NEWS COMMENTATOR.
80-year-old female with past medical history of HFpEF, moderate mitral regurgitation, hypertension, hyperlipidemia, premature atrial contractions, prior paroxysmal atrial fibrillation, type 2 diabetes, ocular melanoma with metastases to right hip
bone, presenting with fall due to recurrent lower leg weakness. �Ongoing right hip pain from metastases. �Oncology is considering targeted radiation to the hip.
Labs show creatinine of 1.8 [address] head shows no acute abnormality.
Patient given ibuprofen and IV fluids.
Patient with fall secondary to lower leg weakness secondary to right hip metastases from ocular melanoma. �Also with CITLALLI likely secondary to Lasix/Advil/prerenal component.
Patient seen by PT and OT and unsafe to be discharged. �Continue IV fluids. �Hold Lasix and ibuprofen. �Case management consulted. �Consider tramadol for pain.
[2024-08-30 15:32] LABS: Urine Squamous Cell 0-2 /LPF (Few); Urine White Cell 0-2 /HPF (0-5)
[2024-08-30 15:33] LABS: Urine Bacteria Moderate (Negative); Urine Red Blood Cell >100 /HPF (0-2)
[2024-08-30] MEDS: HEPARIN 5000 UNITS SC (17:55)
[2024-08-30] MEDS: LANTUS 0.2 UNITS SC (17:57)
[2024-08-30 18:01] LABS: Glucose - Point of Care 163 mg/dl (70-99)
--- NOTE | 2024-08-30 19:21 | PTCARENOTE ---
pt choked at change of shift while eating with son and daughter at the bedside. pt threw up meal. pt recovered no longer coughing. overnight houseperson nurse aware. pt denied issues with chewing and swallowing, pt notes that food just 'went down the wrong
pipe'
[2024-08-30] MEDS: LOPRESSOR 12.5 MG PO (19:56)
[2024-08-30 21:17] LABS: Glucose - Point of Care 224 mg/dl (70-99)
[2024-08-30] MEDS: LIPITOR 40 MG PO (21:17)
[2024-08-30] MEDS: MYLICON 80 MG PO (21:47)
[2024-08-30] MEDS: HEPARIN SC (23:58)
[2024-08-31] MEDS: TYLENOL 650 MG PO ×5 (00:51→21:36)
[2024-08-31 07:04] VITALS: BP 105/54
[2024-08-31 07:07] LABS: Blood Urea Nitrogen 60 mg/dl (7-17); Calcium 8.8 mg/dl (8.4-10.2); Carbon Dioxide 24 mmol/L (22-30); Chloride 110 mmol/L (98-107); Estimated Creatinine Clearance 24 ml/min; Glucose 93 mg/dl (70-99); Potassium 3.8 mmol/L (3.5-5.1); Sodium 139 mmol/L (135-145); eGFR 36.19
[2024-08-31 07:15] LABS: Glucose - Point of Care 102 mg/dl (70-99)
[2024-08-31] MEDS: NOVOLOG FLEXPEN-LOW RESISTANCE SC (07:39)
[2024-08-31] MEDS: ARIMIDEX 1 MG PO (07:58)
[2024-08-31] MEDS: LOPRESSOR 12.5 MG PO ×2 (07:58→19:38)
[2024-08-31] MEDS: THERAGRAN 1 TABLET PO (07:58)
[2024-08-31] MEDS: FARXIGA 10 MG PO (07:58)
[2024-08-31] MEDS: HEPARIN 5000 UNITS SC ×2 (08:04→15:21)
[2024-08-31 08:38] VITALS: BMI 27.5
--- NOTE | 2024-08-31 08:56 | W.PN.HOSP.TC ---
Today's Communication/Plan
-
Continue IV fluids
Plan for discharge to short-term rehab tomorrow if bed available
Assessment / Plan
Assessment / Plan
HPI: 80-year-old female with past medical history of HFpEF, moderate mitral regurgitation, hypertension, hyperlipidemia, premature atrial contractions, prior paroxysmal atrial fibrillation, type 2 diabetes, ocular melanoma with metastases to right
hip bone, presenting with fall due to recurrent lower leg weakness. �Ongoing right hip pain from metastases. �Oncology is considering targeted radiation to the hip. Labs show creatinine of 1.8 from 1.2 previously.
#Acute kidney injury
Due to dehydration
Creatinine 1.4 today, down from 1.8, baseline is 1.2
Continue IV fluids for another day, trend creatinine, no nephrotoxic drugs/NSAIDs
#Mechanical fall
#Right hip pain from bone metastases
#Weakness
#Ambulatory dysfunction
PT/OT recommend short-term rehab
Continue Tylenol scheduled, pain meds as needed, laxatives
CM on board, likely can be discharged to short-term rehab tomorrow if bed available
#Ocular melanoma with metastases to the right hip
Appreciate oncology input, recommend outpatient follow up with oncologist at [facility] and radiation oncologist at [facility]
#Paroxysmal atrial fibrillation
Continue metoprolol
Not on anticoagulation, likely due to fall risk
#Heart failure with a preserved ejection fraction
Continue dapagliflozin
Hold Lasix in the setting of CITLALLI
# Type 2 diabetes
Continue Lantus 20 units every afternoon, sliding scale insulin
#Anemia of chronic disease
Trend hemoglobin
#History of breast cancer
Continue anastrozole
DVT prophylaxis�subcu heparin
Full code
Updated daughter on phone 08/31
Total time spent to see the patient on the floor, examine the patient, review data and lab results, discuss treatment plan with patient, nursing staff around 50 minutes.
Physical Exam
General: No acute distress
HEENT: Normocephalic, Atraumatic, EOMI, MMM
Left eye enucleation noted
Respiratory: Clear to Auscultation bilaterally
Cardiac: Normal S1/S2, Regular Rate and Rhythm
GI: Soft, Nontender, Nondistended, Normal Bowel Sounds
Extremities: No Clubbing, Cyanosis, or Edema
Neuro: Nonfocal/Grossly Intact
Psych: Calm, Cooperative
Derm: No Visible lesions
Anticipated Discharge: Within 24 hours
Subjective/Interval History
-
Date of Service: August 31, 2024
Patient complains of her legs giving out when she stands. She does state that her right hip pain bothers her. No fever, no vomiting. No chest pain, no shortness of breath.
Objective Data
-
Labs:
Laboratory Results
08/31/24
06:28
Sodium 139
Potassium 3.8
Chloride 110 H
Carbon Dioxide 24
BUN 60 H
Creatinine 1.4 H
Glucose 93
Calcium 8.8
Vital Signs:
Vital Signs
Temp Pulse Resp BP Pulse Ox
97.9 F 65 18 105/54 95
08/31/24 07:04 08/31/24 07:58 08/31/24 07:04 08/31/24 07:58 08/31/24 07:04
I&O
08/30/24 08/31/24 09/01/24
06:59 06:59 06:59
Intake Total 480 / 480
Balance 480 / 480
--- NOTE | 2024-08-31 09:37 | CON.ONC ---
Consultation
-
Date Consultation Requested: 08/31/24
Date Consultation Performed: 08/31/24
Requesting Provider: Dakotah Mosley
Performing Provider: Dr. Lawler
Reason for Consultation: uveal melonoma
Impression
Impression
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
breast cancer on anastrozole
CITLALLI
PAF
HFpEF
chronic normocytic anemia
Plan
Plan
continue anastrozole
PT/OT
pain management
OP follow up with primary oncologist for further management of breast cancer and metastatic uveal melanoma
Patient History
History of Present Illness
88yo F with metastatic melanoma presented after a mechanical fall. She reports that she uses a walker due to right hip pain due to metastatic disease and weakness, however, she has been more weak causing fall. She fell yesterday and today which
prompted her to seek further evaluation in the ER. SHe denies LOC or hitting her head. She reports taking NSAIDS for her right hip pain. Admission labs notable for Hgb 10.3g/dL with normal WBC and platelets and a BUN/creatinine 60/1.4 with a
normal calcium and LFTS. Her CT head showed no acute intracranial abnormality identified. Her right hip xray showed No acute fracture or malalignment identified radiographically.
In brief, pt had her left eye removed when diagnosed with uveal melanoma. 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 She has undergone [employer]Knife to her bx proven melanoma liver mets and plans to follow up with her
radiation oncologist at [facility] for palliative XRT to her right hip lesion. She was also diagnosed with early stage ER positive breast cancer for which she was started on anastrozole.
Clinically, she denies fever, chills, cough, chest pain, sob, palpitations, n/v/d/c or abdominal pain. She denies dizziness or headache.
Pt daughter is at the bedside. Malvin has reached out to pt primary oncologist at [facility] and radiation oncologist at [facility].
Past-Medical/Surgical History
PMH:
paroxysmal atrial fibrillation
HFpEF
GERD
type 2 diabetes
hyponatremia
anemia of chronic disease
breast cancer, ER positive
immunotherapy related colitis
fecal impaction
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
dysphagia
PSH
Left eye resection
cholecystectomy
Social: non-smoker, denies etoh or recreational drugs. retired. assisted living
Family: non-contributory
Patient Medication
�Medication �Instructions �Recorded �Confirmed �Last Taken �Type
atorvastatin 40 mg tablet (Lipitor) 40 mg PO HS High Cholesterol 09/28/23 08/30/24 08/29/24 History
therapeutic multivitamin 1 tab PO DAILY Supplement 09/28/23 08/30/24 08/29/24 History
dapagliflozin propanediol 10 mg 10 mg PO DAILY #30 tabs 11/24/23 08/30/24 08/29/24 Rx
tablet
furosemide 20 mg tablet 60 mg (3 x 20 mg) PO DAILY Fluid 11/24/23 08/30/24 08/29/24 Rx
Retention/Swelling #270 tabs
metoprolol tartrate 25 mg tablet 12.5 mg (1/2 x 25 mg) PO BID Blood 11/24/23 08/30/24 08/29/24 Rx
Pressure #30 tabs
anastrozole 1 mg tablet 1 mg PO DAILY Cancer 08/30/24 08/30/24 08/29/24 History
insulin aspart U-100 100 unit/mL 5 sliding scale dose SC AC Diabetes 08/30/24 08/30/24 08/29/24 History
subcutaneous solution (Novolog
U-100 Insulin aspart)
insulin glargine 100 unit/mL (3 20 unit SC QPM Diabetes 08/30/24 08/30/24 08/29/24 History
mL) subcutaneous pen (Lantus
Solostar U-100 Insulin)
Active Medications
Generic Name Dose Route Start Last Admin
Trade Name Freq PRN Reason Stop Dose Admin
Acetaminophen 650 mg 08/31/24 13:00
Acetaminophen 325 Mg Tablet PO 09/28/24 12:59
QID [place]
Anastrozole 1 mg 08/31/24 08:00 08/31/24 07:58
Anastrozole 1 Mg Tablet PO 09/28/24 07:59 1 mg
DAILY [place] Administration
Atorvastatin Calcium 40 mg 08/30/24 22:00 08/30/24 21:17
Atorvastatin (Lipitor) 40 Mg Tablet PO 09/27/24 21:59 40 mg
HS [place] Administration
Dapagliflozin 10 mg 08/31/24 08:00 08/31/24 07:58
Dapagliflozin (Farxiga) 10 Mg Tablet PO 09/28/24 07:59 10 mg
DAILY [place] Administration
Dextrose 12.5 grams 08/30/24 17:41
Dextrose 50% (0.5 Grams/Ml) 50 Ml Syringe IV 09/27/24 17:40
[id number] PRN
hypoglycemia
Protocol
Glucagon 1 mg 08/30/24 17:41
Glucagon 1 Mg Vial IM 09/27/24 17:40
PRN PRN
hypoglycemia
Protocol
Heparin Sodium 5,000 units 08/30/24 17:31 08/31/24 08:04
Heparin 5,000 Units/Ml 1 Ml Vial SC 09/27/24 17:30 5,000 units
Q8 [place] Administration
Insulin Glargine 20 units/ 0.2 mls @ 0 mls/hr 08/30/24 18:00 08/30/24 17:57
Device SC 09/27/24 17:59 0.2 mls
QPM [place] Administration
As Directed
Insulin Aspart 0 units 08/31/24 07:30 08/31/24 07:39
Insulin Aspart Low Resistance 300 Units/3 Ml Pen.Injctr SC 09/28/24 07:29 Not Given
AC [facility]
Protocol
Metoprolol Tartrate 12.5 mg 08/30/24 20:00 08/31/24 07:58
Metoprolol 12.5 Mg Regular Release Dose (1/2 Of 25 Mg Tablet) PO 09/27/24 19:59 12.5 mg
BID [place] Administration
Multivitamins Therapeutic 1 tablet 08/31/24 08:00 08/31/24 07:58
Multivitamin Tablet PO 09/28/24 07:59 1 tablet
DAILY [place] Administration
Oxycodone HCl 5 mg 08/31/24 09:03
Oxycodone 5 Mg Regular Release Tablet PO 09/14/24 09:02
Q4HPRN PRN
severe pain
Polyethylene Glycol 17 grams 08/31/24 10:00
Polyethylene Glycol Powder 17 Grams Packet PO 09/28/24 09:59
DAILY [place]
Senna/Docusate Sodium 2 tablet 08/31/24 20:00
Docusate W/Senna (Kelin-Colace) Tablet PO 09/28/24 19:59
BID [place]
Simethicone 80 mg 08/30/24 21:45 08/30/24 21:47
Simethicone 80 Mg Chewable Tablet PO 09/27/24 21:44 80 mg
QIDPRN PRN Administration
gas pain/bloat
Sodium Chloride 0 flush 08/30/24 18:00
Sodium Chloride 0.9% (Flush) Syringe IV 09/27/24 17:59
PER PROTOCOL [place]
Tramadol HCl 25 mg 08/31/24 09:03
Tramadol Hcl 50 Mg Tablet PO 09/28/24 09:02
BIDPRN PRN
moderate pain
Review of Systems
-
ROS is notable for HPI, otherwise negative
Physical Exam
-
General: No Apparent Distress, Comfortable and Conversant
HEENT: Moist Mucous Membranes and Other (anophthalmia); Negative Jaundice
Cardiology: Normal Sinus Rhythm
Pulmonary: Clear
GI: Soft
Extremities: Pulses Present; Negative Edema
Neurology: Non Focal
Skin: Warm
Hematologic / Lymphatic: No Lymphadenopathy
Psych: Calm
Labs
Lab Results
WBC 9.0 10^3/uL (4.8-10.8) 08/30/24 12:17
RBC 3.35 10^6/uL (4.20-5.40) L 08/30/24 12:17
Hgb 10.3 g/dL (12.0-16.0) L 08/30/24 12:17
Hct 30.5 % (37.0-47.0) L 08/30/24 12:17
MCV 91.0 fL (81.0-99.0) 08/30/24 12:17
MCH 30.7 pg (27.0-31.0) 08/30/24 12:17
MCHC 33.8 g/dL (33.0-37.0) 08/30/24 12:17
RDW 14.0 % (11.5-14.5) 08/30/24 12:17
Plt Count 192 10^3/uL (130-400) 08/30/24 12:17
MPV 11.4 fL (7.4-10.4) H 08/30/24 12:17
Abs Immat Gran (auto) 0.1 10^3/uL (0-0.05) H 08/30/24 12:17
Absolute Neuts (auto) 7.7 10^3/uL (1.4-6.5) H 08/30/24 12:17
Absolute Lymphs (auto) 0.7 10^3/uL (1.2-3.4) L 08/30/24 12:17
Absolute Monos (auto) 0.5 10^3/uL (0.1-0.6) 08/30/24 12:17
Absolute Eos (auto) 0.0 10^3/uL (0-0.7) 08/30/24 12:17
Absolute Basos (auto) 0.0 10^3/uL (0-0.2) 08/30/24 12:17
Immature Gran % 0.8 % (0-0.5) H 08/30/24 12:17
Neutrophils % 85.0 % (42.2-75.2) H 08/30/24 12:17
Lymphocytes % 8.2 % (20.5-51.1) L 08/30/24 12:17
Monocytes % 5.5 % (1.7-9.3) 08/30/24 12:17
Eosinophils % 0.3 % (0-6) 08/30/24 12:17
Basophils % 0.2 % (0-2) 08/30/24 12:17
Creatinine 1.4 mg/dL (0.6-1.0) H 08/31/24 06:28
Vital Signs
Vital Signs
Temp Pulse Resp BP Pulse Ox
97.9 F 65 18 105/54 95
08/31/24 07:04 08/31/24 07:58 08/31/24 07:04 08/31/24 07:58 08/31/24 07:04
[2024-08-31 10:27] LABS: Glycohemoglobin (HgbA1c) 11.9 % (4.0-5.6)
--- NOTE | 2024-08-31 10:49 | CM ---
CM reviewed chart and met with pt bedside. Lives alone in AR apt at [facility].
Independent at baseline, ambulates with walker.
Hx with VN/SNF through [facility].
Denies financial insecurities.
PCP: Joe Champagne
Pharmacy: [facility]
SNF recs by PT, patient in agreement, phone call with [facility]mission, Lynn Chaney, , ext [phone]
SNF referral faxed per Admissions request,
Facility NPI [id number]/ Physician Dr Che Jefferson [id number]
Pt will require [employer] Auth, per SNF Admissions can transfer with pending Auth
OT ordered and eval pending
Dispo plan: [facility] SNF pending [employer] auth
[2024-08-31] MEDS: MYLICON 80 MG PO ×2 (10:54→15:21)
[2024-08-31] MEDS: MIRALAX 17 GRAMS PO (10:54)
[2024-08-31 11:30] LABS: Glucose - Point of Care 201 mg/dl (70-99)
[2024-08-31] MEDS: NOVOLOG FLEXPEN-LOW RESISTANCE 2 UNITS SC (12:04)
[2024-08-31 14:59] VITALS: BP 152/78; PULSE 67; O2SAT 95
[2024-08-31 15:05] VITALS: BP 152/78
[2024-08-31] MEDS: ULTRAM 25 MG PO (15:20)
[2024-08-31] MEDS: NSS 500 IV (15:21)
[2024-08-31 16:20] LABS: Glucose - Point of Care 266 mg/dl (70-99)
[2024-08-31] MEDS: NOVOLOG FLEXPEN-LOW RESISTANCE 3 UNITS SC (17:29)
[2024-08-31] MEDS: LANTUS 0.2 UNITS SC (17:56)
[2024-08-31] MEDS: ROXICODONE 5 MG PO (19:37)
[2024-08-31] MEDS: SENOKOT-S 2 TABLET PO (19:37)
[2024-08-31 21:33] LABS: Glucose - Point of Care 256 mg/dl (70-99)
[2024-08-31] MEDS: LIPITOR 40 MG PO (21:36)
[2024-08-31 23:00] VITALS: BP 112/56
[2024-09-01] MEDS: HEPARIN 5000 UNITS SC ×2 (00:25→09:18)
--- NOTE | 2024-09-01 04:22 | DOWNTIME ---
Addendum entered by Danielle Stokes RN 09/01/24 14:13:
Correction to downtime 09/01/2024 from 0100 to 09/01/24 at 0415.
Original Note:
There was a [employer] Downtime on 08/31/2024 from 0100 to 09/01/2024 at 0415. Downtime documentation of patient's care, including medication administrations, has been reconciled in the electronic record per guidelines. Refer to the
patient's paper chart under the miscellaneous tab to see printed paper medication records and downtime forms.
[2024-09-01] MEDS: ULTRAM 25 MG PO (05:49)
[2024-09-01 07:30] VITALS: BP 139/66
[2024-09-01 08:10] LABS: Glucose - Point of Care 109 mg/dl (70-99)
[2024-09-01] MEDS: NOVOLOG FLEXPEN-LOW RESISTANCE SC (09:09)
[2024-09-01] MEDS: SENOKOT-S 2 TABLET PO (09:16)
[2024-09-01] MEDS: TYLENOL 650 MG PO ×2 (09:17→12:44)
[2024-09-01] MEDS: FARXIGA 10 MG PO (09:17)
[2024-09-01] MEDS: THERAGRAN 1 TABLET PO (09:17)
[2024-09-01] MEDS: MIRALAX 17 GRAMS PO (09:17)
[2024-09-01] MEDS: LOPRESSOR 12.5 MG PO (09:18)
[2024-09-01] MEDS: ARIMIDEX 1 MG PO (09:18)
--- NOTE | 2024-09-01 09:54 | W.PN.HOSP.TC ---
Today's Communication/Plan
-
Increase pain medication to oxycodone 10 mg every 4 hours as needed
Discharge to short-term rehab today
Assessment / Plan
Assessment / Plan
HPI: 80-year-old female with past medical history of HFpEF, moderate mitral regurgitation, hypertension, hyperlipidemia, premature atrial contractions, prior paroxysmal atrial fibrillation, type 2 diabetes, ocular melanoma with metastases to right
hip bone, presenting with fall due to recurrent lower leg weakness. �Ongoing right hip pain from metastases. �Oncology is considering targeted radiation to the hip. Labs show creatinine of 1.8 from 1.2 previously.
#Acute kidney injury
Due to dehydration
Resolved with IV fluids
Creatinine 1.1 today, down from 1.8, baseline is 1.2
#Mechanical fall
#Right hip pain from bone metastases
#Weakness
#Ambulatory dysfunction
PT/OT recommend short-term rehab
Continue Tylenol scheduled, pain meds as needed, laxatives
Will discharge on oxycodone 10 mg every 4 hours as needed for pain
#Ocular melanoma with metastases to the right hip
Appreciate oncology input, recommend outpatient follow up with oncologist at [facility] and radiation oncologist at [facility]
#Paroxysmal atrial fibrillation
Continue metoprolol
Not on anticoagulation, likely due to fall risk
#Heart failure with a preserved ejection fraction
Continue dapagliflozin
Will reduce Lasix from 60 mg daily to 40 mg every other day in the setting of dehydration and CITLALLI
# Type 2 diabetes
Continue Lantus 20 units every afternoon, sliding scale insulin
#Anemia of chronic disease
Trend hemoglobin
#History of breast cancer
Continue anastrozole
DVT prophylaxis�subcu heparin
Full code
Updated daughter at bedside 09/01
Physical Exam
General: No acute distress
HEENT: Normocephalic, Atraumatic, EOMI, MMM
Left eye enucleation noted
Respiratory: Clear to Auscultation bilaterally
Cardiac: Normal S1/S2, Regular Rate and Rhythm
GI: Soft, Nontender, Nondistended, Normal Bowel Sounds
Extremities: No Clubbing, Cyanosis, or Edema
Neuro: Nonfocal/Grossly Intact
Psych: Calm, Cooperative
Derm: No Visible lesions
Anticipated Discharge: Today
Subjective/Interval History
-
Date of Service: September 01, 2024
Patient reports oxycodone 5 mg did not help. She continues to have right hip pain. No fever, no vomiting. No chest pain, no shortness of breath.
Objective Data
-
Vital Signs:
Vital Signs
Temp Pulse Resp BP Pulse Ox
97.7 F 71 18 139/66 98
09/01/24 07:30 09/01/24 07:30 09/01/24 07:30 09/01/24 07:30 09/01/24 07:30
I&O
08/31/24 09/01/24 09/02/24
06:59 06:59 06:59
Intake Total 480 / 480 480 / 480 480 / 480
Balance 480 / 480 480 / 480 480 / 480
[2024-09-01 10:57] LABS: Blood Urea Nitrogen 40 mg/dl (7-17); Calcium 8.8 mg/dl (8.4-10.2); Carbon Dioxide 23 mmol/L (22-30); Chloride 108 mmol/L (98-107); Estimated Creatinine Clearance 31 ml/min; Glucose 230 mg/dl (70-99); Potassium 3.8 mmol/L (3.5-5.1); Sodium 136 mmol/L (135-145); eGFR 48.33
[2024-09-01] MEDS: ROXICODONE 10 MG PO (11:15)
--- NOTE | 2024-09-01 11:57 | CM ---
Addendum entered by Kaia Samano 09/02/24 10:48:
Call received from [facility] to advise that pt is approved; since pt was already discharged, no auth# provided, but will be called to [facility] since that is where the care is being provided.
Addendum entered by Kaia Samano 09/01/24 13:40:
CM spoke corrine Douglass's daughter, Allie to make her aware of plan for transfer to [facility] today via ambulance.
Allie was thankful for the update and glad that her mother will be returning to [facility].
Addendum entered by Kaia Samano 09/01/24 12:41:
Nursing Report: [phone]
Original Note:
CM following for discharge to [facility] SN[facility]. Per Lynn Chaney, admissions, pt can be transferred once pending authorization has been received. Pending Reference# [id number] provided by Karrie at [facility].
Ambulance transport requested for 1:30 for planned arrival at 2PM. VM left for Lynn Chaney, requesting phone number for nursing report. Await response.
[2024-09-01] MEDS: DULCOLAX 10 MG RECTAL (12:21)
[2024-09-01 12:34] LABS: Glucose - Point of Care 253 mg/dl (70-99)
[2024-09-01] MEDS: NOVOLOG FLEXPEN-LOW RESISTANCE 3 UNITS SC (12:38)
--- NOTE | 2024-09-01 14:48 | W.DCSUMMARY ---
Discharge Summary
Discharge Data
Date of Admission: 08/30/24
Date of Discharge: 09/01/24
-
Pending Results: No
Hospital Course
Discharge diagnosis:
Acute kidney injury
Ambulatory dysfunction
Mechanical fall
Right hip pain from bone metastases
Ocular melanoma with metastases to the right hip
Paroxysmal atrial fibrillation not on anticoagulation
Heart failure with a preserved ejection fraction
Type 2 diabetes
Anemia of chronic disease
History of breast cancer
Consult: Oncology
Hip XR:
Patient is post prior open reduction and internal fixation of proximal left femoral fracture. The right hip joint shows joint space narrowing. Small amount of acetabular spurring. Small amount of femoral head spurring. No acute fracture identified.
No suspicious focal osseous lesions. Pubic symphysis is congruent. Sacroiliac joints are maintained. No radiopaque foreign body. No soft tissue abnormality identified. Calcifications over the pelvis related to old degenerated fibroids. There are
calcific aortoiliac atherosclerotic changes.
Head CT:
There is mild bilaterally symmetric prominence of the ventricles and extra-axial CSF spaces representing volume loss. There are bilateral white matter hypodensities which are nonspecific, but most likely related to chronic small vessel ischemic
disease. There is no acute bleed, mass effect, or midline shift. There is some cerebellar volume loss. Posterior fossa structures otherwise unremarkable. No acute loss of rapp-white differentiation is identified. There is no skull fracture. There is
incidental hyperostosis frontalis interna. There is occipital lucent lesion with narrow zone of transition and overall nonaggressive appearance, they be related to vascular structure. Patient is post resection of the left globe.
Hospital course:
88-year-old female with a past medical history of CHF, atrial fibrillation, diabetes, breast cancer, and ocular melanoma with metastases to the right hip was admitted for acute kidney injury and severe right hip pain.
Patient's acute kidney injury was secondary to dehydration while taking Lasix. Patient's Lasix was held. She was treated with IV fluids. Her creatinine normalized. She is on Lasix 60 mg daily at home. Will change her Lasix to 40 mg every other
day upon discharge.
Patient also had a mechanical fall prior to admission with ambulatory dysfunction secondary to her right hip pain from her bony metastases. She was seen in conjunction of oncology, who recommends outpatient follow-up with her usual oncologist at
[place] and radiation oncologist at [facility]. Patient's pain was controlled with oxycodone 10 mg every 4 hours as needed. She was started on and will be discharged on an aggressive bowel regimen.
Patient was seen in conjunction with PT, who recommended short-term rehab. She is medically stable for discharge to short-term rehab. She needs to follow-up with her primary care doctor 1 week after she leaves rehab, and her usual oncologist and
radiation oncologist as soon as possible.
Disposition: Short-term rehab
Discharge planning: Required 37 minutes
Discharge Plan
-
Patient Disposition: Senior Care/SNF
Discharge Diagnosis/Procedures: Right hip pain from bony metastases, ocular melanoma with metastases to the right hip, mechanical fall, dehydration
Condition: Good
Diet: Diabetic, Carb Controlled
Activity: As tolerated
Activity Restrictions/Additional Instructions:
Please follow-up with your family doctor 1 week after you leave rehab.
Please follow-up with your usual oncologist and radiation oncologist as soon as possible.
Referrals:
Joe Champagne DO [Family Provider, [facility]] - in one week
Prescriptions:
New
polyethylene glycol 3350 17 gram Powder In Packet
17 g PO DAILY Qty: 0 0RF
acetaminophen 325 mg Tablet
650 mg PO QID Qty: 60 0RF
sennosides-docusate sodium 8.6-50 mg Tablet
2 tab PO BID Qty: 60 0RF
oxycodone 5 mg Tablet
10 mg PO Q4HPRN PRN (Reason: severe pain) Qty: 5 0RF
Continued
atorvastatin [Lipitor] 40 mg Tablet
40 mg PO HS
therapeutic multivitamin Tablet
1 tab PO DAILY
dapagliflozin propanediol 10 mg Tablet
10 mg PO DAILY Qty: 30 0RF
metoprolol tartrate 25 mg Tablet
12.5 mg PO BID Qty: 30 0RF
anastrozole 1 mg Tablet
1 mg PO DAILY
insulin aspart U-100 [Novolog U-100 Insulin aspart] 100 unit/mL Solution
5 sliding scale dose SC AC
insulin glargine [Lantus Solostar U-100 Insulin] 100 unit/mL (3 mL) Insulin Pen
20 unit SC QPM
Changed
furosemide 20 mg Tablet
40 mg PO Q48H Qty: 270 0RF
Discharge Orders:
Discharge Patient (As Directed); Ordered 09/01/24
Ordered By: Dakotah Mosley
Discharge Date and Time
Discharge Date/Time: 09/01/24 14:24
Print Language: BELARUSIAN
== END 2024-09-01 14:24 ==
LOC: 3 WEST ACU 15:30
PROVIDERS: Nurse Practitioner Family; ADMITTING PHYSICIAN Hospitalist; ATTENDING PHYSICIAN Family Medicine; CONSULT PHYSICIAN Internal Medicine Hematology & Oncology; EMERGENCY PHYSICIAN Emergency Medicine; FAMILY PHYSICIAN Family Medicine
DX: G89.3 Neoplasm related pain (acute) (chronic) (principal); E87.1 Hypo-osmolality and hyponatremia; E86.0 Dehydration; N17.9 Acute kidney failure, unspecified; I48.0 Paroxysmal atrial fibrillation; I13.0 Hypertensive heart and chronic kidney disease with heart failure and stage 1 through stage 4 chronic kidney disease, or unspecified chronic kidney disease; I50.32 Chronic diastolic (congestive) heart failure; Z79.4 Long term (current) use of insulin; C50.919 Malignant neoplasm of unspecified site of unspecified female breast; D63.8 Anemia in other chronic diseases classified elsewhere; C79.51 Secondary malignant neoplasm of bone; M25.551 Pain in right hip
CPT/HCPCS: 12001; 70450; 73502; 80048; 80053; 81003; 81015; 82962; 83036; 83735; 84443; 85025; 87086; 97167; 99285; G0378